=== PATIENT | male | born 1955 | race Two or more races ===

== ENCOUNTER 2020-10-09 13:41 | Inpatient (IN) | payer OTHER ==
[~2020-10-09] VITALS: Ht 172.7 cm; Wt 71.1 kg
[2020-10-09] MEDS ORDERED: ASCORBIC ACID 500 MG TAB PO ONE (14:15)
[2020-10-09] MEDS ORDERED: ZINC SULFATE 220mg CAP or TAB PO ONE (14:15)
[2020-10-09] MEDS ORDERED: AZITHROMYCIN 500MG/ 250ML 250 ML IV ONE (14:15)
[2020-10-09] MEDS ORDERED: DexAMETHasone SOD PHOS 10MG/1ML VIAL INJ IV ONE (14:15)
[2020-10-09 14:34] LABS: Basophils # (auto) 0.1 10 ^3/uL (0-0.2); Basophils % (auto) 0.7 % (0.0-2.0); Eosinophils # (auto) 0.1 10 ^3/uL (0-0.8); Eosinophils % (auto) 1.1 % (0.0-7.0); Hematocrit 45.7 % (41.0-53.0); Hemoglobin 15.7 g/dL (13.5-17.5); Lymphocytes # (auto) 0.8 10 ^3/uL (0.4-5.4); Lymphocytes % (auto) 8.7 % (10.0-50.0); Mean Corpuscular Hemoglobin 31.3 pg (28.0-32.0); Mean Corpuscular Hgb Conc. 34.3 g/dL (32.0-36.0); Mean Corpuscular Volume 91.2 fL (80.0-100.0); Monocytes # (auto) 0.7 10 ^3/uL (0-1.3); Neutrophils # (auto) 7.9 10 ^3/uL (1.6-8.6); Neutrophils % (auto) 82.5 % (37.0-80.0); Nucleated Red Blood Cells % 0.1 %; Platelet Count (auto) 270 10^3/uL (140-450); Red Blood Cells 5.01 10^6/uL (4.5-5.90); Red Cell Distribution Width 13.5 % (11.8-14.3); White Blood Cell 9.6 10^3/uL (4.4-10.8)
[2020-10-09 14:44] LABS: INR 1.14 (0.9-1.15); Partial Thromboplastin Time 24.5 sec (23.0-31.2)
[2020-10-09 14:56] LABS: Albumin 2.2 g/dL (3.4-5.0); Anion Gap 11 (5-15); Blood Urea Nitrogen 17 mg/dL (7-18); Calcium 7.9 mg/dL (8.5-10.1); Carbon Dioxide 25 mmol/L (21-32); Chloride 99 mmol/L (98-107); Glucose 309 mg/dL (74-106); Magnesium 2.4 mg/dL (1.6-2.6); Potassium 3.5 mmol/L (3.5-5.1); Sodium 135 mmol/L (136-145)
[2020-10-09 14:58] LABS: Lactic Acid w/Reflex 5.9 mmol/L (0.4-2.0)
[2020-10-09 15:01] LABS: Alanine Aminotransferase 44 U/L (16-61); Alkaline Phosphatase 93 U/L (45-117); Aspartate Aminotransferase 49 U/L (15-37); BUN/Creatinine Ratio 15.3; Bilirubin, Total 1.3 mg/dL (0.2-1.0); GFR African American 86 mL/min; GFR Non-African American 71 mL/min
[2020-10-09] MEDS ORDERED: NITROGLYCERIN 0.4 MG SL TAB SL PRN (19:00)
[2020-10-09] MEDS ORDERED: MORPHINE SULF INJ 2 MG/ML SYRINGE 1ML IV PRN ×2 (19:00→19:45)
[2020-10-09] MEDS ORDERED: ACETAMINOPHEN 500 MG TAB PO PRN (19:45)
[2020-10-09] MEDS ORDERED: PROMETHAZINE HCL 25 MG/ML 1ML IV PRN (19:45)
[2020-10-09] MEDS ORDERED: DEXTROSE (50%) 50ML SYRG IV PRN (19:45)
[2020-10-09] MEDS ORDERED: TEMAZEPAM 15 MG CAP PO PRN (19:45)
[2020-10-09] MEDS ORDERED: traMADol HCL 50 MG TAB PO PRN (19:45)
[2020-10-09] MEDS ORDERED: LACTULOSE 20Gm/30ML SOLN PO PRN (19:45)
[2020-10-09] MEDS: ACCU-CHEK COMFORT CURVE STRIP VI SCH (20:00)
[2020-10-09] MEDS: InsuLIN REG 1unit/0.01ml Soln (100units/ml) SC SCH (20:00)
[2020-10-09] MEDS: INSULIN LANTUS (GLARGINE) 1 /0.01ml (100units/ml) SC SCH (21:50)
[2020-10-09] MEDS: CLINDAMYCIN 600MG IV 50 ML IV SCH (21:51)
[2020-10-09] MEDS: ENOXAPARIN SOD 40 MG/0.4 ML SYRINGE SC SCH (21:52)
[2020-10-10] MEDS: InsuLIN REG 1unit/0.01ml Soln (100units/ml) SC SCH ×7 (00:05→23:55)
[2020-10-10] MEDS: BUDESONIDE (INHALATION) 180 MCG IH IN SCH ×3 (00:47→20:39)
[2020-10-10] MEDS: ACCU-CHEK COMFORT CURVE STRIP VI SCH ×7 (03:57→23:52)
[2020-10-10] MEDS: CLINDAMYCIN 600MG IV 50 ML IV SCH ×3 (05:52→21:38)
[2020-10-10] MEDS: INSULIN LANTUS (GLARGINE) 1 /0.01ml (100units/ml) SC SCH (06:40)
[2020-10-10 06:47] LABS: Basophils # (auto) 0 10 ^3/uL (0-0.2); Basophils % (auto) 0.2 % (0.0-2.0); Eosinophils # (auto) 0 10 ^3/uL (0-0.8); Eosinophils % (auto) 0.1 % (0.0-7.0); Hematocrit 43.1 % (41.0-53.0); Hemoglobin 15.3 g/dL (13.5-17.5); Lymphocytes # (auto) 1.1 10 ^3/uL (0.4-5.4); Lymphocytes % (auto) 10.3 % (10.0-50.0); Mean Corpuscular Hgb Conc. 35.5 g/dL (32.0-36.0); Mean Corpuscular Volume 90.2 fL (80.0-100.0); Monocytes # (auto) 0.8 10 ^3/uL (0-1.3); Monocytes % (auto) 7.3 % (0.0-12.0); Neutrophils # (auto) 8.5 10 ^3/uL (1.6-8.6); Neutrophils % (auto) 82.1 % (37.0-80.0); Platelet Count (auto) 270 10^3/uL (140-450); Red Blood Cells 4.78 10^6/uL (4.5-5.90); Red Cell Distribution Width 13.6 % (11.8-14.3); White Blood Cell 10.4 10^3/uL (4.4-10.8)
[2020-10-10 07:00] LABS: Potassium 3.7 mmol/L (3.5-5.1)
[2020-10-10 07:08] LABS: Albumin 2.2 g/dL (3.4-5.0); BUN/Creatinine Ratio 29.4; Bilirubin, Total 0.8 mg/dL (0.2-1.0); Calcium 8.2 mg/dL (8.5-10.1); Total Protein 7.7 g/dL (6.4-8.2)
[2020-10-10 10:00] VITALS: BP 109/71
[2020-10-10] MEDS ORDERED: IVERMECTIN 3 MG TAB PO ONE (10:00)
[2020-10-10] MEDS: DexAMETHasone SOD PHOS 10MG/1ML VIAL INJ IV SCH (10:48)
[2020-10-10] MEDS: ENOXAPARIN SOD 40 MG/0.4 ML SYRINGE SC SCH ×2 (10:49→21:39)
[2020-10-10] MEDS: ZINC SULFATE 220mg CAP or TAB PO SCH (10:49)
[2020-10-10] MEDS: CHOLECALCIFEROL (VITD3) 2,000 UNIT CAP/TAB PO SCH (10:49)
[2020-10-10] MEDS: levoFLOXacin 500MG 100 ML IV SCH (10:49)
[2020-10-10] MEDS: ASCORBIC ACID 1,000 MG TAB PO SCH (10:49)
[2020-10-10 16:00] VITALS: BP 113/66
[2020-10-10] MEDS ORDERED: REMDESIVIR PER PHARMACY 0 ML IV SCH (16:45)
[2020-10-10] MEDS ORDERED: REMDESIVIR 200 MG in NS 210ml LOADING DOSE ADULT IV ONE (18:30)
[2020-10-10] MEDS: ALBUTEROL SULF HFA 90MCG INH 200DOSE IN PRN (20:39)
[2020-10-11] VITALS: BP 102/51
[2020-10-11 03:58] VITALS: BP 124/62
[2020-10-11] MEDS: InsuLIN REG 1unit/0.01ml Soln (100units/ml) SC SCH ×5 (04:00→20:05)
[2020-10-11] MEDS: ACCU-CHEK COMFORT CURVE STRIP VI SCH ×5 (04:19→20:04)
[2020-10-11 04:24] VITALS: BP 113/67
[2020-10-11 06:00] VITALS: BP 137/68
[2020-10-11] MEDS: CLINDAMYCIN 600MG IV 50 ML IV SCH ×3 (06:17→21:20)
[2020-10-11 07:21] LABS: Basophils # (auto) 0 10 ^3/uL (0-0.2); Basophils % (auto) 0.1 % (0.0-2.0); Eosinophils # (auto) 0.1 10 ^3/uL (0-0.8); Eosinophils % (auto) 1.3 % (0.0-7.0); Hematocrit 40.3 % (41.0-53.0); Hemoglobin 13.7 g/dL (13.5-17.5); Lymphocytes # (auto) 1.5 10 ^3/uL (0.4-5.4); Lymphocytes % (auto) 15.3 % (10.0-50.0); Mean Corpuscular Volume 91.1 fL (80.0-100.0); Monocytes # (auto) 0.8 10 ^3/uL (0-1.3); Monocytes % (auto) 8.1 % (0.0-12.0); Neutrophils # (auto) 7.1 10 ^3/uL (1.6-8.6); Neutrophils % (auto) 75.2 % (37.0-80.0); Nucleated Red Blood Cells % 0.1 %; Platelet Count (auto) 261 10^3/uL (140-450); Red Blood Cells 4.42 10^6/uL (4.5-5.90); Red Cell Distribution Width 13.5 % (11.8-14.3); White Blood Cell 9.5 10^3/uL (4.4-10.8)
[2020-10-11] MEDS: BUDESONIDE (INHALATION) 180 MCG IH IN SCH ×2 (07:40→19:40)
[2020-10-11 07:45] LABS: Potassium 3.8 mmol/L (3.5-5.1)
[2020-10-11 07:59] LABS: Albumin 2.2 g/dL (3.4-5.0); Bilirubin, Total 0.7 mg/dL (0.2-1.0); Calcium 7.8 mg/dL (8.5-10.1)
[2020-10-11 08:00] VITALS: BP 130/76
[2020-10-11] MEDS: levoFLOXacin 500MG 100 ML IV SCH (10:11)
[2020-10-11] MEDS: DexAMETHasone SOD PHOS 10MG/1ML VIAL INJ IV SCH (10:11)
[2020-10-11] MEDS: ZINC SULFATE 220mg CAP or TAB PO SCH (10:11)
[2020-10-11] MEDS: ASCORBIC ACID 1,000 MG TAB PO SCH (10:12)
[2020-10-11] MEDS: CHOLECALCIFEROL (VITD3) 2,000 UNIT CAP/TAB PO SCH (10:12)
[2020-10-11] MEDS: ENOXAPARIN SOD 40 MG/0.4 ML SYRINGE SC SCH ×2 (10:13→21:20)
[2020-10-11] MEDS: ALBUTEROL SULF HFA 90MCG INH 200DOSE IN PRN ×2 (10:34→19:40)
[2020-10-11] MEDS: INSULIN LANTUS (GLARGINE) 1 /0.01ml (100units/ml) SC SCH (12:10)
[2020-10-11] MEDS: REMDESIVIR 100mg 100 MG in SODIUM CHL 0.9% 230 ML IV SCH (13:49)
[2020-10-11 16:00] VITALS: BP 127/77
[2020-10-12] VITALS: BP 97/53
[2020-10-12] MEDS: ACCU-CHEK COMFORT CURVE STRIP VI SCH ×6 (00:11→20:14)
[2020-10-12] MEDS: InsuLIN REG 1unit/0.01ml Soln (100units/ml) SC SCH ×6 (00:13→20:18)
[2020-10-12] MEDS: CLINDAMYCIN 600MG IV 50 ML IV SCH ×2 (05:50→14:04)
[2020-10-12 06:56] LABS: Basophils # (auto) 0 10 ^3/uL (0-0.2); Basophils % (auto) 0.2 % (0.0-2.0); Eosinophils # (auto) 0.2 10 ^3/uL (0-0.8); Eosinophils % (auto) 1.7 % (0.0-7.0); Hematocrit 38.6 % (41.0-53.0); Hemoglobin 13.6 g/dL (13.5-17.5); Lymphocytes # (auto) 1.4 10 ^3/uL (0.4-5.4); Lymphocytes % (auto) 15.9 % (10.0-50.0); Mean Corpuscular Hemoglobin 31.8 pg (28.0-32.0); Mean Corpuscular Hgb Conc. 35.2 g/dL (32.0-36.0); Mean Corpuscular Volume 90.4 fL (80.0-100.0); Monocytes # (auto) 0.8 10 ^3/uL (0-1.3); Monocytes % (auto) 8.6 % (0.0-12.0); Neutrophils # (auto) 6.4 10 ^3/uL (1.6-8.6); Neutrophils % (auto) 73.6 % (37.0-80.0); Nucleated Red Blood Cells % 0.1 %; Platelet Count (auto) 239 10^3/uL (140-450); Red Blood Cells 4.26 10^6/uL (4.5-5.90); Red Cell Distribution Width 13.7 % (11.8-14.3); White Blood Cell 8.7 10^3/uL (4.4-10.8)
[2020-10-12 07:10] LABS: Potassium 3.8 mmol/L (3.5-5.1)
[2020-10-12 07:16] LABS: Albumin 1.9 g/dL (3.4-5.0); BUN/Creatinine Ratio 30.2; Bilirubin, Total 0.9 mg/dL (0.2-1.0); Calcium 7.4 mg/dL (8.5-10.1); Total Protein 6.2 g/dL (6.4-8.2)
[2020-10-12] MEDS: ALBUTEROL SULF HFA 90MCG INH 200DOSE IN PRN ×2 (07:16→20:52)
[2020-10-12] MEDS: BUDESONIDE (INHALATION) 180 MCG IH IN SCH ×2 (07:16→20:52)
[2020-10-12 08:28] VITALS: BP 96/55
[2020-10-12] MEDS: ENOXAPARIN SOD 40 MG/0.4 ML SYRINGE SC SCH ×2 (10:02→21:32)
[2020-10-12] MEDS: levoFLOXacin 500MG 100 ML IV SCH (10:02)
[2020-10-12] MEDS: ZINC SULFATE 220mg CAP or TAB PO SCH (10:03)
[2020-10-12] MEDS: ASCORBIC ACID 1,000 MG TAB PO SCH (10:03)
[2020-10-12] MEDS: DexAMETHasone SOD PHOS 10MG/1ML VIAL INJ IV SCH (10:03)
[2020-10-12] MEDS: CHOLECALCIFEROL (VITD3) 2,000 UNIT CAP/TAB PO SCH (10:03)
[2020-10-12] MEDS: INSULIN LANTUS (GLARGINE) 1 /0.01ml (100units/ml) SC SCH (10:09)
[2020-10-12] MEDS: REMDESIVIR 100mg 100 MG in SODIUM CHL 0.9% 230 ML IV SCH (15:20)
[2020-10-12 16:00] VITALS: BP 112/64
[2020-10-13] VITALS: BP 105/54
[2020-10-13] MEDS: ACCU-CHEK COMFORT CURVE STRIP VI SCH ×7 (00:13→23:56)
[2020-10-13] MEDS: InsuLIN REG 1unit/0.01ml Soln (100units/ml) SC SCH ×7 (00:14→23:57)
[2020-10-13] MEDS: BUDESONIDE (INHALATION) 180 MCG IH IN SCH ×2 (06:49→21:44)
[2020-10-13] MEDS: ALBUTEROL SULF HFA 90MCG INH 200DOSE IN PRN ×2 (06:49→21:44)
[2020-10-13 06:56] LABS: Basophils # (auto) 0 10 ^3/uL (0-0.2); Basophils % (auto) 0.3 % (0.0-2.0); Eosinophils # (auto) 0.1 10 ^3/uL (0-0.8); Hemoglobin 14.4 g/dL (13.5-17.5)
[2020-10-13 07:03] LABS: Eosinophils % (auto) 1.3 % (0.0-7.0); Lymphocytes # (auto) 1.4 10 ^3/uL (0.4-5.4); Lymphocytes % (auto) 14.4 % (10.0-50.0); Monocytes % (auto) 10.7 % (0.0-12.0); Neutrophils # (auto) 6.9 10 ^3/uL (1.6-8.6); Neutrophils % (auto) 73.3 % (37.0-80.0); Nucleated Red Blood Cells % 0.3 %; Red Blood Cells 4.11 10^6/uL (4.5-5.90); White Blood Cell 9.4 10^3/uL (4.4-10.8)
[2020-10-13 07:04] LABS: Hematocrit 39.3 % (41.0-53.0); Mean Corpuscular Hemoglobin 34.9 pg (28.0-32.0); Mean Corpuscular Volume 95.6 fL (80.0-100.0); Platelet Count (auto) 247 10^3/uL (140-450); Red Cell Distribution Width 13.7 % (11.8-14.3)
[2020-10-13 07:05] LABS: Albumin 2.2 g/dL (3.4-5.0); BUN/Creatinine Ratio 27.7; Calcium 8.1 mg/dL (8.5-10.1)
[2020-10-13 07:09] LABS: Bilirubin, Total 0.7 mg/dL (0.2-1.0); Total Protein 6.5 g/dL (6.4-8.2)
[2020-10-13 08:00] VITALS: BP 110/66
[2020-10-13] MEDS: DexAMETHasone SOD PHOS 10MG/1ML VIAL INJ IV SCH (09:37)
[2020-10-13] MEDS: ENOXAPARIN SOD 40 MG/0.4 ML SYRINGE SC SCH ×2 (09:38→21:13)
[2020-10-13] MEDS: levoFLOXacin 500MG 100 ML IV SCH (09:38)
[2020-10-13] MEDS: CHOLECALCIFEROL (VITD3) 2,000 UNIT CAP/TAB PO SCH (09:38)
[2020-10-13] MEDS: ASCORBIC ACID 1,000 MG TAB PO SCH (09:38)
[2020-10-13] MEDS: ZINC SULFATE 220mg CAP or TAB PO SCH (09:38)
[2020-10-13] MEDS: INSULIN LANTUS (GLARGINE) 1 /0.01ml (100units/ml) SC SCH (09:39)
[2020-10-13] MEDS: REMDESIVIR 100mg 100 MG in SODIUM CHL 0.9% 230 ML IV SCH (15:39)
[2020-10-13 16:00] VITALS: BP 109/70
[2020-10-14] VITALS: BP 102/73
[2020-10-14] MEDS: ACCU-CHEK COMFORT CURVE STRIP VI SCH ×5 (04:47→20:53)
[2020-10-14] MEDS: InsuLIN REG 1unit/0.01ml Soln (100units/ml) SC SCH ×6 (04:49→20:54)
[2020-10-14 06:21] LABS: Basophils # (auto) 0 10 ^3/uL (0-0.2); Basophils % (auto) 0.2 % (0.0-2.0); Eosinophils # (auto) 0.1 10 ^3/uL (0-0.8); Eosinophils % (auto) 1.6 % (0.0-7.0); Hematocrit 42.3 % (41.0-53.0); Hemoglobin 14.8 g/dL (13.5-17.5); Lymphocytes # (auto) 1.3 10 ^3/uL (0.4-5.4); Lymphocytes % (auto) 14.2 % (10.0-50.0); Mean Corpuscular Hemoglobin 32.1 pg (28.0-32.0); Mean Corpuscular Hgb Conc. 35.1 g/dL (32.0-36.0); Mean Corpuscular Volume 91.5 fL (80.0-100.0); Monocytes # (auto) 0.7 10 ^3/uL (0-1.3); Neutrophils # (auto) 6.8 10 ^3/uL (1.6-8.6); Platelet Count (auto) 249 10^3/uL (140-450); Red Blood Cells 4.62 10^6/uL (4.5-5.90); Red Cell Distribution Width 13.7 % (11.8-14.3)
[2020-10-14 06:38] LABS: Potassium 4.2 mmol/L (3.5-5.1)
[2020-10-14 06:45] LABS: Albumin 2.2 g/dL (3.4-5.0); BUN/Creatinine Ratio 20.3; Bilirubin, Total 0.7 mg/dL (0.2-1.0); Calcium 8.2 mg/dL (8.5-10.1); Total Protein 6.6 g/dL (6.4-8.2)
[2020-10-14] MEDS: ALBUTEROL SULF HFA 90MCG INH 200DOSE IN PRN ×2 (07:10→19:54)
[2020-10-14] MEDS: BUDESONIDE (INHALATION) 180 MCG IH IN SCH ×2 (07:10→19:54)
[2020-10-14 08:00] VITALS: BP 115/66
[2020-10-14] MEDS: INSULIN LANTUS (GLARGINE) 1 /0.01ml (100units/ml) SC SCH (10:00)
[2020-10-14] MEDS: DexAMETHasone SOD PHOS 10MG/1ML VIAL INJ IV SCH (10:32)
[2020-10-14] MEDS: ASCORBIC ACID 1,000 MG TAB PO SCH (10:38)
[2020-10-14] MEDS: CHOLECALCIFEROL (VITD3) 2,000 UNIT CAP/TAB PO SCH (10:38)
[2020-10-14] MEDS: ENOXAPARIN SOD 40 MG/0.4 ML SYRINGE SC SCH ×2 (10:38→21:10)
[2020-10-14] MEDS: levoFLOXacin 500MG 100 ML IV SCH (10:39)
[2020-10-14] MEDS: ZINC SULFATE 220mg CAP or TAB PO SCH (10:50)
[2020-10-14 15:57] VITALS: BP 106/72
[2020-10-14] MEDS: REMDESIVIR 100mg 100 MG in SODIUM CHL 0.9% 230 ML IV SCH (16:16)
[2020-10-14] MEDS ORDERED: InsuLIN REG 1unit/0.01ml Soln (100units/ml) ONE (16:41)
[2020-10-15] VITALS: BP 95/61
[2020-10-15] MEDS: ACCU-CHEK COMFORT CURVE STRIP VI SCH ×6 (00:07→22:03)
[2020-10-15] MEDS: InsuLIN REG 1unit/0.01ml Soln (100units/ml) SC SCH ×6 (00:15→22:06)
[2020-10-15 04:06] VITALS: BP 95/61
[2020-10-15 06:37] LABS: Basophils # (auto) 0 10 ^3/uL (0-0.2); Basophils % (auto) 0.3 % (0.0-2.0); Eosinophils # (auto) 0.3 10 ^3/uL (0-0.8); Eosinophils % (auto) 3.1 % (0.0-7.0); Hemoglobin 14.7 g/dL (13.5-17.5); Lymphocytes # (auto) 1.6 10 ^3/uL (0.4-5.4); Lymphocytes % (auto) 14.8 % (10.0-50.0); Mean Corpuscular Hemoglobin 31.6 pg (28.0-32.0); Mean Corpuscular Hgb Conc. 35.1 g/dL (32.0-36.0); Mean Corpuscular Volume 90.1 fL (80.0-100.0); Monocytes # (auto) 1.1 10 ^3/uL (0-1.3); Monocytes % (auto) 9.7 % (0.0-12.0); Neutrophils # (auto) 7.9 10 ^3/uL (1.6-8.6); Neutrophils % (auto) 72.1 % (37.0-80.0); Nucleated Red Blood Cells % 0.1 %; Platelet Count (auto) 265 10^3/uL (140-450); Red Blood Cells 4.66 10^6/uL (4.5-5.90); Red Cell Distribution Width 14.1 % (11.8-14.3)
[2020-10-15 06:58] LABS: BUN/Creatinine Ratio 34.8; Calcium 8.3 mg/dL (8.5-10.1); Potassium 4.1 mmol/L (3.5-5.1)
[2020-10-15] MEDS: BUDESONIDE (INHALATION) 180 MCG IH IN SCH ×2 (07:55→19:33)
[2020-10-15] MEDS: ALBUTEROL SULF HFA 90MCG INH 200DOSE IN PRN ×2 (07:55→19:33)
[2020-10-15 08:00] VITALS: BP 109/71
[2020-10-15] MEDS: INSULIN LANTUS (GLARGINE) 1 /0.01ml (100units/ml) SC SCH (09:51)
[2020-10-15] MEDS: ASCORBIC ACID 1,000 MG TAB PO SCH (09:52)
[2020-10-15] MEDS: CHOLECALCIFEROL (VITD3) 2,000 UNIT CAP/TAB PO SCH (09:53)
[2020-10-15] MEDS: ZINC SULFATE 220mg CAP or TAB PO SCH (09:53)
[2020-10-15] MEDS: ENOXAPARIN SOD 40 MG/0.4 ML SYRINGE SC SCH ×2 (09:53→22:03)
[2020-10-15] MEDS: DexAMETHasone SOD PHOS 10MG/1ML VIAL INJ IV SCH (09:53)
[2020-10-15] MEDS: levoFLOXacin 500MG 100 ML IV SCH (09:54)
[2020-10-15] MEDS ORDERED: DEXTROSE (50%) 50ML SYRG IV PRN (13:45)
[2020-10-15 16:00] VITALS: BP 100/65
[2020-10-16] VITALS: BP 102/66
[2020-10-16] MEDS: ACCU-CHEK COMFORT CURVE STRIP VI SCH ×4 (05:55→22:19)
[2020-10-16] MEDS: InsuLIN REG 1unit/0.01ml Soln (100units/ml) SC SCH ×4 (05:59→22:28)
[2020-10-16 07:33] LABS: Basophils # (auto) 0 10 ^3/uL (0-0.2); Basophils % (auto) 0.1 % (0.0-2.0); Eosinophils # (auto) 0 10 ^3/uL (0-0.8); Eosinophils % (auto) 0.5 % (0.0-7.0); Hematocrit 41.2 % (41.0-53.0); Hemoglobin 14.8 g/dL (13.5-17.5); Lymphocytes # (auto) 1.2 10 ^3/uL (0.4-5.4); Lymphocytes % (auto) 11.4 % (10.0-50.0); Mean Corpuscular Hemoglobin 33.7 pg (28.0-32.0); Mean Corpuscular Hgb Conc. 35.9 g/dL (32.0-36.0); Monocytes # (auto) 0.9 10 ^3/uL (0-1.3); Monocytes % (auto) 8.2 % (0.0-12.0); Neutrophils # (auto) 8.5 10 ^3/uL (1.6-8.6); Neutrophils % (auto) 79.8 % (37.0-80.0); Nucleated Red Blood Cells % 0.1 %; Platelet Count (auto) 261 10^3/uL (140-450); Red Blood Cells 4.38 10^6/uL (4.5-5.90); Red Cell Distribution Width 13.6 % (11.8-14.3); White Blood Cell 10.7 10^3/uL (4.4-10.8)
[2020-10-16 07:40] LABS: Potassium 4.1 mmol/L (3.5-5.1)
[2020-10-16] MEDS: BUDESONIDE (INHALATION) 180 MCG IH IN SCH ×2 (07:40→18:50)
[2020-10-16] MEDS: ALBUTEROL SULF HFA 90MCG INH 200DOSE IN PRN ×2 (07:40→19:37)
[2020-10-16 07:45] LABS: BUN/Creatinine Ratio 30.9; Calcium 8.7 mg/dL (8.5-10.1)
[2020-10-16 08:00] VITALS: BP 101/60
[2020-10-16] MEDS: levoFLOXacin 500MG 100 ML IV SCH (10:11)
[2020-10-16] MEDS: ZINC SULFATE 220mg CAP or TAB PO SCH (10:11)
[2020-10-16] MEDS: DexAMETHasone SOD PHOS 10MG/1ML VIAL INJ IV SCH (10:11)
[2020-10-16] MEDS: ASCORBIC ACID 1,000 MG TAB PO SCH (10:12)
[2020-10-16] MEDS: CHOLECALCIFEROL (VITD3) 2,000 UNIT CAP/TAB PO SCH (10:12)
[2020-10-16] MEDS: INSULIN LANTUS (GLARGINE) 1 /0.01ml (100units/ml) SC SCH (10:13)
[2020-10-16] MEDS ORDERED: LEVO750T64 PO (11:43)
[2020-10-16] MEDS ORDERED: ASCO10003 PO (11:43)
[2020-10-16] MEDS ORDERED: DEX4T PO (11:43)
[2020-10-16] MEDS ORDERED: CHOL1CAP47 PO (11:43)
[2020-10-16] MEDS: ENOXAPARIN SOD 40 MG/0.4 ML SYRINGE SC SCH ×2 (15:13→22:19)
[2020-10-16 16:00] VITALS: BP 116/67
[2020-10-17] VITALS: BP 125/66
[2020-10-17] MEDS: ACCU-CHEK COMFORT CURVE STRIP VI SCH ×4 (06:36→21:42)
[2020-10-17] MEDS: InsuLIN REG 1unit/0.01ml Soln (100units/ml) SC SCH ×4 (06:37→21:38)
[2020-10-17 08:00] VITALS: BP 105/61
[2020-10-17] MEDS: ALBUTEROL SULF HFA 90MCG INH 200DOSE IN PRN (09:42)
[2020-10-17] MEDS: BUDESONIDE (INHALATION) 180 MCG IH IN SCH ×2 (09:42→22:03)
[2020-10-17] MEDS: DexAMETHasone SOD PHOS 10MG/1ML VIAL INJ IV SCH (10:05)
[2020-10-17] MEDS: levoFLOXacin 500MG 100 ML IV SCH (10:06)
[2020-10-17] MEDS: ZINC SULFATE 220mg CAP or TAB PO SCH (10:06)
[2020-10-17] MEDS: ASCORBIC ACID 1,000 MG TAB PO SCH (10:06)
[2020-10-17] MEDS: CHOLECALCIFEROL (VITD3) 2,000 UNIT CAP/TAB PO SCH (10:06)
[2020-10-17] MEDS: ENOXAPARIN SOD 40 MG/0.4 ML SYRINGE SC SCH ×2 (10:07→21:42)
[2020-10-17] MEDS: INSULIN LANTUS (GLARGINE) 1 /0.01ml (100units/ml) SC SCH (10:08)
[2020-10-17 12:03] LABS: Basophils # (auto) 0 10 ^3/uL (0-0.2); Basophils % (auto) 0.1 % (0.0-2.0); Eosinophils # (auto) 0.1 10 ^3/uL (0-0.8); Eosinophils % (auto) 0.5 % (0.0-7.0); Hematocrit 40.2 % (41.0-53.0); Hemoglobin 13.7 g/dL (13.5-17.5); Lymphocytes # (auto) 0.8 10 ^3/uL (0.4-5.4); Lymphocytes % (auto) 6.2 % (10.0-50.0); Mean Corpuscular Hemoglobin 30.8 pg (28.0-32.0); Mean Corpuscular Hgb Conc. 34.1 g/dL (32.0-36.0); Mean Corpuscular Volume 90.1 fL (80.0-100.0); Monocytes % (auto) 7.3 % (0.0-12.0); Neutrophils # (auto) 11.3 10 ^3/uL (1.6-8.6); Neutrophils % (auto) 85.9 % (37.0-80.0); Platelet Count (auto) 257 10^3/uL (140-450); Red Blood Cells 4.46 10^6/uL (4.5-5.90); Red Cell Distribution Width 14.1 % (11.8-14.3); White Blood Cell 13.2 10^3/uL (4.4-10.8)
[2020-10-17 12:14] LABS: BUN/Creatinine Ratio 27.3; Calcium 8.2 mg/dL (8.5-10.1); Potassium 4.6 mmol/L (3.5-5.1)
[2020-10-17 12:23] LABS: CRP High Sensitivity 5.07 mg/dL (< 0.3)
[2020-10-17] MEDS ORDERED: IOHEXOL 350 MG/ML 100ML IJ ONE (13:07)
[2020-10-17] MEDS ORDERED: methylPREDNISolone SOD SUCC 40 MG/ML VL IV ONE (14:00)
[2020-10-17] MEDS ORDERED: TOCILIZUMAB 400 MG in SODIUM CHL 0.9% 80 ML IV SCH (14:30)
[2020-10-17] MEDS: diphenhdrAMINE HCL 50 MG/1 ML VL IV SCH (14:35)
[2020-10-17] MEDS: ACETAMINOPHEN 650 mg PER 20.3 mL UD PO SCH (14:36)
[2020-10-17 16:00] VITALS: BP 103/60
[2020-10-18] VITALS: BP 94/56
[2020-10-18 06:20] LABS: Basophils # (auto) 0 10 ^3/uL (0-0.2); Eosinophils # (auto) 0 10 ^3/uL (0-0.8); Hematocrit 39.1 % (41.0-53.0); Hemoglobin 13.5 g/dL (13.5-17.5); Lymphocytes # (auto) 1.4 10 ^3/uL (0.4-5.4); Mean Corpuscular Hemoglobin 31.4 pg (28.0-32.0); Mean Corpuscular Hgb Conc. 34.6 g/dL (32.0-36.0); Mean Corpuscular Volume 90.8 fL (80.0-100.0); Monocytes # (auto) 0.8 10 ^3/uL (0-1.3); Monocytes % (auto) 6.2 % (0.0-12.0); Neutrophils # (auto) 10.5 10 ^3/uL (1.6-8.6); Neutrophils % (auto) 82.8 % (37.0-80.0); Platelet Count (auto) 284 10^3/uL (140-450); Red Cell Distribution Width 14.2 % (11.8-14.3); White Blood Cell 12.6 10^3/uL (4.4-10.8)
[2020-10-18] MEDS: InsuLIN REG 1unit/0.01ml Soln (100units/ml) SC SCH ×4 (06:28→22:58)
[2020-10-18 06:37] LABS: Potassium 4.4 mmol/L (3.5-5.1)
[2020-10-18 06:50] LABS: BUN/Creatinine Ratio 39.3; CRP High Sensitivity 3.61 mg/dL (< 0.3); Calcium 8.2 mg/dL (8.5-10.1)
[2020-10-18] MEDS: ACCU-CHEK COMFORT CURVE STRIP VI SCH ×4 (07:00→22:54)
[2020-10-18 08:00] VITALS: BP 120/71
[2020-10-18] MEDS: INSULIN LANTUS (GLARGINE) 1 /0.01ml (100units/ml) SC SCH (10:00)
[2020-10-18] MEDS: ENOXAPARIN SOD 40 MG/0.4 ML SYRINGE SC SCH ×2 (10:00→22:30)
[2020-10-18] MEDS: ALBUTEROL SULF HFA 90MCG INH 200DOSE IN PRN ×2 (10:13→19:29)
[2020-10-18] MEDS: BUDESONIDE (INHALATION) 180 MCG IH IN SCH ×2 (10:13→19:29)
[2020-10-18] MEDS: levoFLOXacin 500MG 100 ML IV SCH (11:03)
[2020-10-18] MEDS: DexAMETHasone SOD PHOS 10MG/1ML VIAL INJ IV SCH (11:04)
[2020-10-18] MEDS: ACETAMINOPHEN 650 mg PER 20.3 mL UD PO SCH (11:04)
[2020-10-18] MEDS: diphenhdrAMINE HCL 50 MG/1 ML VL IV SCH (11:05)
[2020-10-18] MEDS: CHOLECALCIFEROL (VITD3) 2,000 UNIT CAP/TAB PO SCH (11:06)
[2020-10-18] MEDS: ZINC SULFATE 220mg CAP or TAB PO SCH (11:06)
[2020-10-18] MEDS: ASCORBIC ACID 1,000 MG TAB PO SCH (11:06)
[2020-10-18] MEDS ORDERED: TOCILIZUMAB 400 MG in SODIUM CHL 0.9% 80 ML IV ONE (12:00)
[2020-10-18] MEDS ORDERED: ROCURONIUM 10MG/ML 10ML VIAL IV ONE (12:30)
[2020-10-18] MEDS ORDERED: ETOMIDATE (2MG/ML) 20ML VIAL IV ONE (12:30)
[2020-10-18 15:54] VITALS: BP 109/60
[2020-10-19] VITALS: BP 106/63
[2020-10-19] MEDS: ACCU-CHEK COMFORT CURVE STRIP VI SCH ×4 (06:51→22:28)
[2020-10-19] MEDS: InsuLIN REG 1unit/0.01ml Soln (100units/ml) SC SCH ×4 (06:52→22:30)
[2020-10-19 07:31] LABS: Basophils # (auto) 0.1 10 ^3/uL (0-0.2); Basophils % (auto) 0.4 % (0.0-2.0); Eosinophils # (auto) 0.1 10 ^3/uL (0-0.8); Eosinophils % (auto) 0.7 % (0.0-7.0); Hematocrit 43.1 % (41.0-53.0); Hemoglobin 14.6 g/dL (13.5-17.5); Lymphocytes % (auto) 15.1 % (10.0-50.0); Mean Corpuscular Hemoglobin 30.4 pg (28.0-32.0); Mean Corpuscular Volume 89.4 fL (80.0-100.0); Monocytes # (auto) 0.8 10 ^3/uL (0-1.3); Neutrophils # (auto) 10.3 10 ^3/uL (1.6-8.6); Neutrophils % (auto) 77.8 % (37.0-80.0); Nucleated Red Blood Cells % 0.1 %; Platelet Count (auto) 294 10^3/uL (140-450); Red Blood Cells 4.82 10^6/uL (4.5-5.90); Red Cell Distribution Width 13.8 % (11.8-14.3); White Blood Cell 13.2 10^3/uL (4.4-10.8)
[2020-10-19 07:53] LABS: BUN/Creatinine Ratio 29.7; Calcium 8.1 mg/dL (8.5-10.1); Potassium 4.4 mmol/L (3.5-5.1)
[2020-10-19 08:00] VITALS: BP 110/59
[2020-10-19] MEDS: DexAMETHasone SOD PHOS 10MG/1ML VIAL INJ IV SCH (09:30)
[2020-10-19] MEDS: ZINC SULFATE 220mg CAP or TAB PO SCH (09:31)
[2020-10-19] MEDS: CHOLECALCIFEROL (VITD3) 2,000 UNIT CAP/TAB PO SCH (09:31)
[2020-10-19] MEDS: ASCORBIC ACID 1,000 MG TAB PO SCH (09:31)
[2020-10-19] MEDS: levoFLOXacin 500MG 100 ML IV SCH (09:31)
[2020-10-19] MEDS: BUDESONIDE (INHALATION) 180 MCG IH IN SCH ×2 (09:40→19:18)
[2020-10-19] MEDS: ALBUTEROL SULF HFA 90MCG INH 200DOSE IN PRN ×2 (09:40→19:18)
[2020-10-19] MEDS: INSULIN LANTUS (GLARGINE) 1 /0.01ml (100units/ml) SC SCH (09:56)
[2020-10-19] MEDS: ENOXAPARIN SOD 40 MG/0.4 ML SYRINGE SC SCH ×2 (11:38→22:27)
[2020-10-19 16:00] VITALS: BP 118/74
[2020-10-20] VITALS: BP 111/75
[2020-10-20] MEDS: ACCU-CHEK COMFORT CURVE STRIP VI SCH ×4 (06:17→21:18)
[2020-10-20 06:32] LABS: Basophils # (auto) 0 10 ^3/uL (0-0.2); Basophils % (auto) 0.2 % (0.0-2.0); Eosinophils # (auto) 0.2 10 ^3/uL (0-0.8); Eosinophils % (auto) 1.4 % (0.0-7.0); Hematocrit 42.6 % (41.0-53.0); Hemoglobin 15.1 g/dL (13.5-17.5); Lymphocytes # (auto) 2.3 10 ^3/uL (0.4-5.4); Mean Corpuscular Hemoglobin 32.9 pg (28.0-32.0); Mean Corpuscular Hgb Conc. 35.4 g/dL (32.0-36.0); Mean Corpuscular Volume 92.8 fL (80.0-100.0); Monocytes # (auto) 0.6 10 ^3/uL (0-1.3); Monocytes % (auto) 5.6 % (0.0-12.0); Neutrophils # (auto) 8.3 10 ^3/uL (1.6-8.6); Neutrophils % (auto) 72.8 % (37.0-80.0); Nucleated Red Blood Cells % 0.2 %; Platelet Count (auto) 279 10^3/uL (140-450); Red Blood Cells 4.59 10^6/uL (4.5-5.90); Red Cell Distribution Width 14.2 % (11.8-14.3); White Blood Cell 11.3 10^3/uL (4.4-10.8)
[2020-10-20] MEDS: InsuLIN REG 1unit/0.01ml Soln (100units/ml) SC SCH ×4 (06:33→22:06)
[2020-10-20 06:39] LABS: BUN/Creatinine Ratio 34.9; Calcium 8.5 mg/dL (8.5-10.1); Potassium 4.5 mmol/L (3.5-5.1)
[2020-10-20] MEDS: BUDESONIDE (INHALATION) 180 MCG IH IN SCH ×2 (07:12→19:23)
[2020-10-20] MEDS: ALBUTEROL SULF HFA 90MCG INH 200DOSE IN PRN ×2 (07:12→19:23)
[2020-10-20 08:00] VITALS: BP 99/49
[2020-10-20] MEDS: levoFLOXacin 500MG 100 ML IV SCH (10:48)
[2020-10-20] MEDS: DexAMETHasone SOD PHOS 10MG/1ML VIAL INJ IV SCH (10:48)
[2020-10-20] MEDS: ZINC SULFATE 220mg CAP or TAB PO SCH (10:48)
[2020-10-20] MEDS: CHOLECALCIFEROL (VITD3) 2,000 UNIT CAP/TAB PO SCH (10:49)
[2020-10-20] MEDS: ASCORBIC ACID 1,000 MG TAB PO SCH (10:49)
[2020-10-20] MEDS: ENOXAPARIN SOD 40 MG/0.4 ML SYRINGE SC SCH ×2 (10:49→22:04)
[2020-10-20] MEDS: INSULIN LANTUS (GLARGINE) 1 /0.01ml (100units/ml) SC SCH (11:32)
[2020-10-20] MEDS ORDERED: IVERMECTIN 3 MG TAB PO ONE (13:45)
[2020-10-20 16:00] VITALS: BP 110/72
[2020-10-21] VITALS: BP 98/62
[2020-10-21] MEDS: InsuLIN REG 1unit/0.01ml Soln (100units/ml) SC SCH ×4 (06:07→21:59)
[2020-10-21] MEDS: ACCU-CHEK COMFORT CURVE STRIP VI SCH ×4 (06:08→21:50)
[2020-10-21] MEDS: BUDESONIDE (INHALATION) 180 MCG IH IN SCH ×2 (07:05→20:19)
[2020-10-21 08:00] VITALS: BP 104/64
[2020-10-21 08:04] LABS: Basophils # (auto) 0.1 10 ^3/uL (0-0.2); Basophils % (auto) 0.6 % (0.0-2.0); Eosinophils # (auto) 0.1 10 ^3/uL (0-0.8); Eosinophils % (auto) 1.1 % (0.0-7.0); Hemoglobin 15.1 g/dL (13.5-17.5); Lymphocytes # (auto) 2.2 10 ^3/uL (0.4-5.4); Lymphocytes % (auto) 18.2 % (10.0-50.0); Mean Corpuscular Hemoglobin 32.1 pg (28.0-32.0); Mean Corpuscular Hgb Conc. 35.2 g/dL (32.0-36.0); Mean Corpuscular Volume 91.1 fL (80.0-100.0); Monocytes # (auto) 0.6 10 ^3/uL (0-1.3); Neutrophils % (auto) 75.1 % (37.0-80.0); Nucleated Red Blood Cells % 0.2 %; Platelet Count (auto) 261 10^3/uL (140-450); Red Blood Cells 4.72 10^6/uL (4.5-5.90); Red Cell Distribution Width 13.8 % (11.8-14.3)
[2020-10-21 08:34] LABS: Potassium 4.2 mmol/L (3.5-5.1)
[2020-10-21 08:51] LABS: BUN/Creatinine Ratio 29.5; CRP High Sensitivity 0.44 mg/dL (< 0.3); Calcium 8.2 mg/dL (8.5-10.1)
[2020-10-21] MEDS: levoFLOXacin 500MG 100 ML IV SCH (10:00)
[2020-10-21] MEDS: DexAMETHasone SOD PHOS 10MG/1ML VIAL INJ IV SCH (10:56)
[2020-10-21] MEDS: CHOLECALCIFEROL (VITD3) 2,000 UNIT CAP/TAB PO SCH (10:57)
[2020-10-21] MEDS: ASCORBIC ACID 1,000 MG TAB PO SCH (10:57)
[2020-10-21] MEDS: ZINC SULFATE 220mg CAP or TAB PO SCH (10:57)
[2020-10-21] MEDS: INSULIN LANTUS (GLARGINE) 1 /0.01ml (100units/ml) SC SCH (12:17)
[2020-10-21 16:00] VITALS: BP 113/68
[2020-10-21] MEDS: ALBUTEROL SULF HFA 90MCG INH 200DOSE IN PRN (21:06)
[2020-10-22] VITALS: BP 110/70
[2020-10-22] MEDS: ACCU-CHEK COMFORT CURVE STRIP VI SCH ×2 (06:29→11:30)
[2020-10-22] MEDS: InsuLIN REG 1unit/0.01ml Soln (100units/ml) SC SCH ×2 (06:37→12:25)
[2020-10-22] MEDS: BUDESONIDE (INHALATION) 180 MCG IH IN SCH (07:05)
[2020-10-22] MEDS: ALBUTEROL SULF HFA 90MCG INH 200DOSE IN PRN (07:05)
[2020-10-22 08:14] VITALS: BP 98/62
[2020-10-22] MEDS: DexAMETHasone SOD PHOS 10MG/1ML VIAL INJ IV SCH (08:53)
[2020-10-22] MEDS: ASCORBIC ACID 1,000 MG TAB PO SCH (08:54)
[2020-10-22] MEDS: ZINC SULFATE 220mg CAP or TAB PO SCH (08:54)
[2020-10-22] MEDS: CHOLECALCIFEROL (VITD3) 2,000 UNIT CAP/TAB PO SCH (08:57)
[2020-10-22] MEDS: INSULIN LANTUS (GLARGINE) 1 /0.01ml (100units/ml) SC SCH (10:00)
[2020-10-22] MEDS: levoFLOXacin 500MG 100 ML IV SCH (12:23)
[2020-10-22 16:02] VITALS: BP 111/73
== END 2020-10-22 16:50 | disposition home or self-care (01) | DRG 137 ==
LOC: ER 13:41 → TELE 18:56 → TELE-EAST 10-10 08:50 → TELE-WESTW 10-19 10:52
PROVIDERS: ADMIT Internal Medicine; ATTEND Internal Medicine Pulmonary Disease
PROC: XW033E5 Introduction of Remdesivir Anti-infective into Peripheral Vein, Percutaneous Approach, New Technology Group 5 (ICD-10-PCS; 2020-10-10)
PROC: XW13325 Transfusion of Convalescent Plasma (Nonautologous) into Peripheral Vein, Percutaneous Approach, New Technology Group 5 (ICD-10-PCS; principal; 2020-10-11)
PROC: XW033H5 Introduction of Tocilizumab into Peripheral Vein, Percutaneous Approach, New Technology Group 5 (ICD-10-PCS; 2020-10-17)
DX: U07.1 COVID-19 (principal); J12.82 Pneumonia due to coronavirus disease 2019; J96.01 Acute respiratory failure with hypoxia; E11.65 Type 2 diabetes mellitus with hyperglycemia; I10 Essential (primary) hypertension; D68.59 Other primary thrombophilia; D89.839 Cytokine release syndrome, grade unspecified; E78.5 Hyperlipidemia, unspecified; Z79.4 Long term (current) use of insulin
CPT/HCPCS: 36415; 71045; 71275; 80048; 80053; 82728; 82962; 83036; 83605; 83615; 83735; 84484; 85025; 85379; 85610; 85730; 86141; 86850; 86900; 86901; 87040; 87426; 93005; 93970; 94640; 96365; 96372; 96375; G0378; J1100; J1815; J1956; J3490

== ENCOUNTER 2024-09-08 08:26 | Inpatient (IN) | payer OTHER, MEDICARE ==
[~2024-09-08] VITALS: Ht 172.7 cm; Wt 78.5 kg
[~2024-09-08 08:26] MED LIST: ASCO10003 PO; CHOL1CAP47 PO; DEX4T PO
[2024-09-08] MEDS ORDERED: VANCOMYCIN PER PHARMACY 0 MG IV SCH (09:00)
[2024-09-08] MEDS: PIPERACILLIN-TAZO 4.5GM 100 ML IV ONE (09:09)
[2024-09-08] MEDS: SODIUM CHLORIDE 0.9% 1,000 ML IVB ONE (09:10)
[2024-09-08 09:13] VITALS: PULSE 94; RESP 16; O2SAT 97
[2024-09-08 09:28] LABS: Basophils # (auto) 0.1 10 ^3/uL (0-0.2); Basophils % (auto) 0.5 % (0.0-2.0); Eosinophils # (auto) 0.2 10 ^3/uL (0-0.8); Eosinophils % (auto) 1.4 % (0.0-7.0); Hematocrit 41.9 % (41.0-53.0); Hemoglobin 14.1 g/dL (13.5-17.5); Lymphocytes # (auto) 1.9 10 ^3/uL (0.4-5.4); Lymphocytes % (auto) 10.7 % (10.0-50.0); Mean Corpuscular Hemoglobin 29.9 pg (28.0-32.0); Mean Corpuscular Hgb Conc. 33.7 g/dL (32.0-36.0); Mean Corpuscular Volume 88.8 fL (80.0-100.0); Monocytes # (auto) 0.9 10 ^3/uL (0-1.3); Monocytes % (auto) 5.2 % (0.0-12.0); Neutrophils # (auto) 14.2 10 ^3/uL (1.6-8.6); Neutrophils % (auto) 82.2 % (37.0-80.0); Nucleated Red Blood Cells % 0.1 %; Platelet Count (auto) 401 10^3/uL (140-450); Red Blood Cells 4.71 10^6/uL (4.5-5.90); Red Cell Distribution Width 13.4 % (11.8-14.3); White Blood Cell 17.3 10^3/uL (4.4-10.8)
[2024-09-08 09:47] LABS: Alanine Aminotransferase 22 U/L (7-40); Albumin 3.9 g/dL (3.2-4.8); Alkaline Phosphatase 114 U/L (46-116); Anion Gap 7 (5-15); Aspartate Aminotransferase 22 U/L (13-40); BUN/Creatinine Ratio 14.4 (10.0-20.0); Bilirubin, Total 0.6 mg/dL (0.2-1.0); Blood Urea Nitrogen 16 mg/dL (9-23); Calcium 9.6 mg/dL (8.7-10.4); Carbon Dioxide 29 mmol/L (20-31); Potassium 3.8 mmol/L (3.5-5.1)
[2024-09-08 09:56] LABS: Chloride 96 mmol/L (98-107); Glucose 360 mg/dL (74-106); Sodium 132 mmol/L (136-145); Total Protein 8.4 g/dL (5.7-8.2)
[2024-09-08 10:11] LABS: Erythrocyte Sedimentation Rate 75 mm/hr (0-20)
--- NOTE | 2024-09-08 10:22 | ED.PDOC ---
History of Present Illness HPI Comments 69-year-old male, with a history of diabetes, presents with granddaughter with complaint of diabetic ulcer wound to bottom have of left foot, with associated odor and discharge, and poor appetite, today. Per granddaughter, patient's spouse reports noticing the patient's wound, that he has had for several months, worsening, onset of remaining other symptoms, for the past 3x days. Patient endorses no additional relevant permanent history, such as recent injuries. He denies having any pain, numbness, tingling, fever, chills, or other associated symptoms or modifying us at this time. Chief Complaint: Wound Check Time Seen by MD: 09:00 Reviewed Notes: Nurses Notes, Medications, Allergies Allergies: Coded Allergies: NO KNOWN ALLERGIES (Unverified , 10/09/20) Information Source: Patient Mode of Arrival: Ambulatory Severity: Moderate Timing: Days Duration: Since onset Prehospital treatment: None Past Medical History PAST MEDICAL HISTORY: DM Surgical History: Denies all surgeries Family History Family History: Unknown Social History Smoker: Non-Smoker Alcohol: Occasionally Drugs: Denies Drug Use Lives In: Home Gastrointestinal: reports: poor appetite Integumetry: reports: wounds (Diabetic ulcer wound the bottom of feet with associated odor and discharge) Physical Exam General Appearance: No Apparent Distress, Normal HEENT: Normal ENT Inspection, Pharynx Normal, TMs Normal Neck: Full Range of Motion, Non-Tender, Normal, Normal Inspection Respiratory: Chest Non-Tender, Lungs Clear, No Accessory Muscle Use, No Respiratory Distress, Normal Breath Sounds Cardiovascular: No Edema, No JVD, No Murmur, No Gallop, Normal Peripheral Pulses, Regular Rate/Rhythm Breast Exam: Deferred Gastrointestinal: No Organomegaly, Non Tender, No Pulsatile Mass, Normal Bowel Sounds, Soft Genitalia: Deferred Pelvic: Deferred Rectal: Deferred Extremities: No calf tenderness, Normal capillary refill, Normal inspection, Normal range of motion, Non-tender, No pedal edema Musculoskeletal : Apperance: Normal Neurologic: Alert, food service technician II-XII nml as Tested, No Motor Deficits, Normal Affect, Normal Mood, No Sensory Deficits Cerebellar Function: Normal Reflexes: Normal Skin: Dry, Normal Color, Warm, Wounds (Necrotic ulcer to 1st PIP joint of left foot, venous stasis changes; erythemaof the left foot with warmth and foul- smelling) Lymphatic: No Adenopathy Was a procedure done? Was a procedure done?: No Differential Dx Considerations may include: Osteomyelitis, nonhealing foot wound, cellulitis, dermatitis, sepsis X-Ray, Labs, Meds, VS Vital Signs Date Time Temp Pulse Resp B/P (MAP) Pulse Ox O2 Delivery O2 Flow Rate FiO2 09/08/24 10:14 Room Air* 0 21 09/08/24 09:13 94 16 97 Room Air* 0 09/08/24 09:12 97.4 94 16 109/68 (82) 97 97.4 09/08/24 08:38 98.2 106 16 99/66 (77) 96 Lab Test 09/08/24 10:50 09/08/24 09:21 09/08/24 09:14 Range/Units Troponin I High Sensitivity < 3 L < 3 L </=54 ng/L Urine Color Light-yellow Yellow Urine Clarity Clear Clear Urine pH 6.5 5.0-9.0 Urine Specific [place] 1.050 H 1.001-1.035 Urine Protein Negative Negative Urine Ketones Trace Negative Urine Blood Negative Negative /uL Urine Nitrite Negative Negative Urine Bilirubin Negative Negative Urine Urobilinogen Normal Negative mg/dL Urine Leukocyte Esterase Negative Negative /uL Urine RBC 1 0 - 3 /hpf Urine WBC <1 0 - 3 /hpf Urine Squamous Epithelial Cells Few <5 /hpf Urine Bacteria None seen None Seen /hpf Urine Mucus Few None Seen Urine Glucose 4+ H Normal mg/dL White Blood Count 17.3 H 4.4-10.8 10^3/uL Red Blood Count 4.71 4.5-5.90 10^6/uL Hemoglobin 14.1 13.5-17.5 g/dL Hematocrit 41.9 41.0-53.0 % Mean Corpuscular Volume 88.8 80.0-100.0 fL Mean Corpuscular Hemoglobin 29.9 28.0-32.0 pg Mean Corpuscular Hemoglobin Concent 33.7 32.0-36.0 g/dL Red Cell Distribution Width 13.4 11.8-14.3 % Platelet Count 401 140-450 10^3/uL Mean Platelet Volume 8.6 6.9-10.8 fL Neutrophils (%) (Auto) 82.2 H 37.0-80.0 % Lymphocytes (%) (Auto) 10.7 10.0-50.0 % Monocytes (%) (Auto) 5.2 0.0-12.0 % Eosinophils (%) (Auto) 1.4 0.0-7.0 % Basophils (%) (Auto) 0.5 0.0-2.0 % Neutrophils # (Auto) 14.2 H 1.6-8.6 10 ^3/uL Lymphocytes # (Auto) 1.9 0.4-5.4 10 ^3/uL Monocytes # (Auto) 0.9 0-1.3 10 ^3/uL Eosinophils # (Auto) 0.2 0-0.8 10 ^3/uL Basophils # (Auto) 0.1 0-0.2 10 ^3/uL Nucleated Red Blood Cells 0.1 % Erythrocyte Sedimentation Rate 75 H 0-20 mm/hr Prothrombin Time 11.1 9.3-11.8 sec Prothrombin Time INR 1.05 0.9-1.15 Activated Partial Thromboplast Time 25.9 24.5-34.5 SEC Sodium Level 132 L 136-145 mmol/L Potassium Level 3.8 3.5-5.1 mmol/L Chloride Level 96 L 98-107 mmol/L Carbon Dioxide Level 29 20-31 mmol/L Anion Gap 7 5-15 Blood Urea Nitrogen 16 9-23 mg/dL Creatinine 1.11 0.700-1.30 mg/dL Glomerular Filtration Rate Calc 72 >90 mL/min BUN/Creatinine Ratio 14.4 10.0-20.0 Serum Glucose 360 H 74-106 mg/dL Hemoglobin A1c 11.8 H <5.7 % A1C Lactic Acid Level 1.8 0.4-2.0 mmol/L Calcium Level 9.6 8.7-10.4 mg/dL Total Bilirubin 0.6 0.2-1.0 mg/dL Aspartate Amino Transferase (AST) 22 13-40 U/L Alanine Aminotransferase (ALT) 22 7-40 U/L Alkaline Phosphatase 114 46-116 U/L C-Reactive Protein High Sensitivity 14.15 H <1.0 mg/dL Total Protein 8.4 H 5.7-8.2 g/dL Albumin 3.9 3.2-4.8 g/dL Current Medications Medications (Trade) Dose Ordered Sig/Ruby Route Start Time Stop Time Status Last Admin Sodium Chloride 1,000 ml @ 1,000 mls/hr Q1H ONCE IVB 09/08/24 09:00 09/08/24 09:59 DC 09/08/24 09:10 Piperacillin Sod/ Tazobactam Sod 100 ml @ 100 mls/hr ONCE ONCE IV 09/08/24 09:00 09/08/24 09:59 DC 09/08/24 09:09 Vancomycin HCl 250 ml @ 250 mls/hr ONCE ONCE IV 09/08/24 10:30 09/08/24 11:29 DC 09/08/24 11:12 Sodium Chloride 2,050 ml @ 2,050 mls/hr ONCE ONCE IV 09/08/24 10:30 09/08/24 11:29 DC 09/08/24 11:12 Time of 1ST Reevaluation: 09:30 Reevaluation 1ST: Unchanged Patient Education/Counseling: Diagnosis, Treatment Family Education/Counseling: Diagnosis, Treatment Additional Information The following tests were ordered, and results were reviewed by me: Labs, CT Additional Information was gathered from interviewing the following independent historians: Family I reviewed and agreed with the following test results read by other providers: CT I discussed treatment and results with medical personnel and: (Consultants, Family) Departure 1 Departure Time of Disposition: 16:40 Impression: Primary Impression: Sepsis Additional Impressions: Diabetes type 2 Peripheral arterial disease Disposition: ADMITTED INPATIENT Admit to: Tele Condition: Guarded Critical Care Note Critical Care Time?: Yes (45 min-critical care time only) Stability Stability form required: No Heart Score Heart Score: Heart Score Response (Comments) Value History N/A 0 EKG N/A 0 Age N/A 0 Risk Factors N/A 0 Troponin N/A 0 Total 0 I personally scribed for NATALIE HERZOG MD ([email or web address]) on 09/08/24 at 10:22. Electronically submitted by Jude Morrell ([email or web address]). I personally scribed for NATALIE HERZOG MD ([email or web address]) on 09/08/24 at 10:34. Electronically submitted by Jude Morrell ([email or web address]). NATALIE HERZOG MD Sep 08, 2024 10:22
[2024-09-08 10:24] LABS: INR 1.05 (0.9-1.15); Partial Thromboplastin Time 25.9 SEC (24.5-34.5); Prothrombin Time 11.1 sec (9.3-11.8)
[2024-09-08] MEDS: VANCOMYCIN 1GM/250ML KIT 250 ML IV ONE (11:12)
[2024-09-08] MEDS: SODIUM CHLORIDE 0.9% 2,050 ML IV ONE (11:12)
--- NOTE | 2024-09-08 11:50 | DVH ---
Procedure: CT RT LOWER EXTREMITY W CON Reason for study/Clinical History: diabetic foot. With contrast pls if renal function allows Comparison Study: None available at time of dictation. Radiation Dose Information: CT Dose: CTDI volume is 7.75 mGy. Dose-length product is 273.31 mGy*cm TECHNIQUE: CT scan of the right leg was performed with intravenous contrast using axial images. Coron al and sagittal reformatted images are submitted. 3D postprocessing images were performed on a dedicated workstation and images were reviewed and inter preted for reporting. FINDINGS: Bones: There is cortical erosion along the plantar aspect of the proximal phalanx of the great toe an d another erosion along the dorsal surface of the proximal phalanx at the level of the metatarsophala ngeal joint. Cortical irregularity is noted along the plantar surface of the great toe distal phalanx . These findings are concerning for osteomyelitis in the appropriate clinical setting. No fracture o r dislocation. Soft tissues: Extensive subcutaneous emphysema is present in the plantar forefoot about the 1st throu gh 3rd toes. There soft tissue swelling in the forefoot. Heterogeneous enhancement of the plantar sof t tissues related to the infection. IMPRESSION: 1. Findings suspicious for osteomyelitis in the great toe proximal and distal phalanx. Extensive sub cutaneous emphysema in the plantar forefoot about 1st and 2nd toes consistent with gas-forming bacter ial infection /gas gangrene. No obvious fluid collection. All CT scans at this medical facility are performed using dose modulation techniques as appropriate t o a performed exam including the following: Automated exposure control was utilized; adjustment of th e MA and/or KV according to patient size; and use of iterative reconstruction technique.
[2024-09-08] MEDS ORDERED: MORPHINE SULFATE INJ 2 MG/ml SYRG IV PRN (13:00)
[2024-09-08] MEDS ORDERED: DEXTROSE (50%) 50ML SYRG IV PRN (13:00)
[2024-09-08] MEDS ORDERED: DOCUSATE SOD 100 MG CAP PO PRN (13:00)
[2024-09-08] MEDS ORDERED: ACETAMINOPHEN 325 MG TAB PO PRN (13:00)
[2024-09-08] MEDS ORDERED: ONDANSETRON HCL 4 MG/2 ML VIAL IV PRN (13:00)
--- NOTE | 2024-09-08 13:11 | DVHHP2 ---
History of Present Illness Reason for Visit: right foot wound History of Present Illness Jeff Ruiz is a 69 year year old male with past medical history of diabetes who presents to the ED for right foot pain. Patient reports that 2 weeks ago he had a callus on the plantar side, then on Sunday he noticed that there was some drainage of pus and it was an open wound. Patient stated that he had his clean the foot for him. He is here for an evaluation. Patient reports that he takes metformin for his diabetes and is compliant. He denies fever, chills, shortness of breath, chest pain, tingling, numbness, nausea, vomiting, diarrhea, and abdominal pain. Endocrine: Diabetes Past Surgical History: None Family History Mom and dad - DM Smoke: No ALCOHOL: none Drugs: None Lives: with Family Domestic Violence: Neg Review of Systems Constitutional: No: Fever, Chills, Sweats, Weakness, Malaise, Other Eyes: No: Pain, Vision change, Conjunctivae inflammation, Eyelid inflammation, Other, Redness ENT: No: Ear pain, Ear discharge, Nose pain, Nose discharge, Nose congestion, Mouth pain, Mouth swelling, Throat pain, Throat swelling, Other Respiratory: No: Cough, Dry, Shortness of breath, SOB with excertion, Wheezing, Hemoptysis, Pleuritic Pain, Sputum, Wheezing, Other Cardiovascular: No: Chest Pain, Palpitations, Orthopnea, Paroxysmal Noc. Dyspnea, Edema, Lt Headedness, Other Gastrointestinal: No: Nausea, Vomiting, Abdominal Pain, Diarrhea, Constipation, Melena, Hematochezia, Other Genitourinary: No Dysuria, No Frequency, No Incontinence, No Hematuria, No Retention, No Other Musculoskeletal: foot pain; No: other, neck pain, shoulder pain, arm pain, back pain, hand pain, leg pain Skin: Other (erythema); No: Rash, Lesions, Jaundice, Bruising Neurological: No: Weakness, Numbness, Incoordination, Change in speech, Confusion, Seizures, Other Allergies: Coded Allergies: NO KNOWN ALLERGIES (Unverified , 10/09/20) Medications Current Medications Medications Dose Ordered Sig/Ruby Route Start Time Stop Time Status Last Admin Dose Admin Vancomycin HCl 0 ml @ 0 mls/hr UD IV 09/08/24 09:00 Vancomycin HCl 250 ml @ 250 mls/hr Q18H IV 09/09/24 04:00 Exam Vital Signs Vital Signs Date Time Temp Pulse Resp B/P (MAP) Pulse Ox O2 Delivery O2 Flow Rate FiO2 09/08/24 10:14 Room Air* 0 21 09/08/24 09:13 94 16 97 09/08/24 09:12 97.4 109/68 (82) 97.4 General Appearance: Alert, Oriented X3, Cooperative, No acute distress HEENT: Atraumatic, PERRLA, EOMI, Mucous membr. moist/pink Respiratory: Clear to auscultation, Normal air movement Cardiovascular: Regular rate, Normal S1, Normal S2, No murmurs Abdominal: Normal bowel sounds, Soft, No tenderness, No hepatospenomegaly, No masses Extremities: No clubbing, No cyanosis, Other (R foot erythema and drainage) Neuro: Normal speech, Strength at 5/5 X4 ext, Sensation intact Psych/Mental Status: Mental status NL, Mood NL Labs/Xrays Labs Test 09/08/24 10:50 09/08/24 09:14 Range/Units Troponin I High Sensitivity < 3 L </=54 ng/L White Blood Count 17.3 H 4.4-10.8 10^3/uL Red Blood Count 4.71 4.5-5.90 10^6/uL Hemoglobin 14.1 13.5-17.5 g/dL Hematocrit 41.9 41.0-53.0 % Mean Corpuscular Volume 88.8 80.0-100.0 fL Mean Corpuscular Hemoglobin 29.9 28.0-32.0 pg Mean Corpuscular Hemoglobin Concent 33.7 32.0-36.0 g/dL Red Cell Distribution Width 13.4 11.8-14.3 % Platelet Count 401 140-450 10^3/uL Mean Platelet Volume 8.6 6.9-10.8 fL Neutrophils (%) (Auto) 82.2 H 37.0-80.0 % Lymphocytes (%) (Auto) 10.7 10.0-50.0 % Monocytes (%) (Auto) 5.2 0.0-12.0 % Eosinophils (%) (Auto) 1.4 0.0-7.0 % Basophils (%) (Auto) 0.5 0.0-2.0 % Neutrophils # (Auto) 14.2 H 1.6-8.6 10 ^3/uL Lymphocytes # (Auto) 1.9 0.4-5.4 10 ^3/uL Monocytes # (Auto) 0.9 0-1.3 10 ^3/uL Eosinophils # (Auto) 0.2 0-0.8 10 ^3/uL Basophils # (Auto) 0.1 0-0.2 10 ^3/uL Nucleated Red Blood Cells 0.1 % Erythrocyte Sedimentation Rate 75 H 0-20 mm/hr Prothrombin Time 11.1 9.3-11.8 sec Prothrombin Time INR 1.05 0.9-1.15 Activated Partial Thromboplast Time 25.9 24.5-34.5 SEC Sodium Level 132 L 136-145 mmol/L Potassium Level 3.8 3.5-5.1 mmol/L Chloride Level 96 L 98-107 mmol/L Carbon Dioxide Level 29 20-31 mmol/L Anion Gap 7 5-15 Blood Urea Nitrogen 16 9-23 mg/dL Creatinine 1.11 0.700-1.30 mg/dL Glomerular Filtration Rate Calc 72 >90 mL/min BUN/Creatinine Ratio 14.4 10.0-20.0 Serum Glucose 360 H 74-106 mg/dL Lactic Acid Level 1.8 0.4-2.0 mmol/L Calcium Level 9.6 8.7-10.4 mg/dL Total Bilirubin 0.6 0.2-1.0 mg/dL Aspartate Amino Transferase (AST) 22 13-40 U/L Alanine Aminotransferase (ALT) 22 7-40 U/L Alkaline Phosphatase 114 46-116 U/L C-Reactive Protein High Sensitivity 14.15 H <1.0 mg/dL Total Protein 8.4 H 5.7-8.2 g/dL Albumin 3.9 3.2-4.8 g/dL Procedure: CT RT LOWER EXTREMITY W CON Reason for study/Clinical History: diabetic foot. With contrast pls if renal function allows Comparison Study: None available at time of dictation. Radiation Dose Information: CT Dose: CTDI volume is 7.75 mGy. Dose-length product is 273.31 mGy*cm TECHNIQUE: CT scan of the right leg was performed with intravenous contrast using axial images. Coronal and sagittal reformatted images are submitted. 3D postprocessing images were performed on a dedicated workstation and images were reviewed and interpreted for reporting. FINDINGS: Bones: There is cortical erosion along the plantar aspect of the proximal phalanx of the great toe and another erosion along the dorsal surface of the proximal phalanx at the level of the metatarsophalangeal joint. Cortical irregularity is noted along the plantar surface of the great toe distal phalanx. These findings are concerning for osteomyelitis in the appropriate clinical setting. No fracture or dislocation. Soft tissues: Extensive subcutaneous emphysema is present in the plantar forefoot about the 1st through 3rd toes. There soft tissue swelling in the forefoot. Heterogeneous enhancement of the plantar soft tissues related to the infection. IMPRESSION: 1. Findings suspicious for osteomyelitis in the great toe proximal and distal phalanx. Extensive subcutaneous emphysema in the plantar forefoot about 1st and 2nd toes consistent with gas-forming bacterial infection /gas gangrene. No obvious fluid collection. Assessment/Plan Assessment/Plan Assessment/Plan: Leukocytosis likely 2nd to Osteomyelitis right foot R/O Sepsis Hyponatremia CT RLE IV Abx Podiatry cx ua labs pt/ptt blood cx wound cx esr crp trop neg x 2 ivf am labs DM2 uncontrolled HgbA1c 11.8% ISS and accuchecks FEN/PPX diet IVf DVT ppx lovenox PUD not indicated no hx of GERD Discussed plan of care with patient and nurse Admit to med surg No home medications to reconcile Plan discussed with: Patient My Orders Orders - SILVIA ALVAREZ [employer] Procedure Category Date Status Time *Podiatry Consult CONS 09/08/24 Transmitted Musson([facility]) 12:41 Wound Culture W/ Gs HEAVEN 09/08/24 Logged 12:41 Admit ADMIT 09/08/24 Verified 12:56 Allergies MEENU 09/08/24 Verified 12:56 Code Status CODE 09/08/24 Verified 12:56 0.9% Ns 1000 Ml PHA 09/08/24 Verified 13:00 Hydrocodone-Acet PHA 09/08/24 Verified 5/325mg Tab ([place] 13:00 Ondansetron Hcl PHA 09/08/24 Verified (Zofran) 13:00 Docusate Sodium PHA 09/08/24 Verified Capsule (Colace 13:00 Complete Blood Count LAB 09/09/24 Verified 04:00 Comprehensive LAB 09/09/24 Verified Metabolic Panel 04:00 Cardiac DIET 09/08/24 Verified Diet-2gna,Lofat,Lochol Lunch Acetaminophen Tablet PHA 09/08/24 Verified (Tylenol Tablet) 13:00 Morphine Sulfate PHA 09/08/24 Verified Injection 13:00 Hemoglobin A1c LAB 09/08/24 Verified 12:56 Glucose Blood PHA 09/08/24 Verified (Accu-Chek Comfort 17:00 Bedtime Insulin Scale PHA 09/08/24 Verified 22:00 Moderate Insulin Ss PHA 09/08/24 Verified 17:00 Dextrose 50% Syringe PHA 09/08/24 Verified 13:00 Zosyn Extended PHA 09/08/24 Verified Infusion 14:00 Date of Service: Sep 08, 2024 Billing Provider: SILVIA ALVAREZ Common Visit Codes: [id number] INP/OBS CARE (MOD) SILVIA ALVAREZ Sep 08, 2024 13:11
[2024-09-08 13:50] LABS: Urine Bacteria None Seen /hpf (None Seen)
[2024-09-08] MEDS: PIPERACILLIN-TAZOB 3.375GM 100 ML IV SCH (14:30)
[2024-09-08] MEDS: SODIUM CHLORIDE 0.9% 1,000 ML IV SCH (14:30)
[2024-09-08 14:37] VITALS: BP 120/72; PULSE 76; RESP 28; TEMP 98.4; O2SAT 95
[2024-09-08 14:48] LABS: Urine Blood Negative /uL (Negative); Urine Clarity Clear (Clear); Urine Color Light-Yellow (Yellow); Urine Mucus FEW (None Seen); Urine Protein, UAD Negative (Negative); Urine Squamous Epithelial Cell FEW /hpf (<5); Urine Urobilinogen Normal (Negative); Urine WBC <1 /hpf (0 - 3); Urine pH 6.5 (5.0-9.0)
[2024-09-08] MEDS: ACCU-CHEK COMFORT CURVE STRIP VI SCH (17:36)
[2024-09-08] MEDS: InsuLIN REG 1unit/0.01ml Soln (100units/ml) SC SCH ×2 (17:40→21:15)
[2024-09-08 18:01] VITALS: BP 137/58; PULSE 60; RESP 20; TEMP 99; O2SAT 87
[2024-09-08] MEDS: ENOXAPARIN SOD 100 MG/1 ML SYRINGE SC SCH (21:15)
[2024-09-08 22:31] VITALS: BP 104/59; PULSE 60; RESP 16; TEMP 98.7; O2SAT 95
[2024-09-09] VITALS (7 sets, daily range): BP systolic 102–147; BP diastolic 58–78; PULSE 57–101; RESP 16–19; TEMP 97.4–98.6; O2SAT 95–99
[2024-09-09 03:40] LABS: Basophils # (auto) 0.1 10 ^3/uL (0-0.2); Basophils % (auto) 0.7 % (0.0-2.0); Eosinophils # (auto) 0.4 10 ^3/uL (0-0.8); Eosinophils % (auto) 2.9 % (0.0-7.0); Hemoglobin 11.9 g/dL (13.5-17.5); Lymphocytes # (auto) 2.6 10 ^3/uL (0.4-5.4); Lymphocytes % (auto) 18.2 % (10.0-50.0); Mean Corpuscular Hemoglobin 29.5 pg (28.0-32.0); Mean Corpuscular Hgb Conc. 33.1 g/dL (32.0-36.0); Monocytes # (auto) 0.9 10 ^3/uL (0-1.3); Monocytes % (auto) 6.7 % (0.0-12.0); Neutrophils # (auto) 10.1 10 ^3/uL (1.6-8.6); Neutrophils % (auto) 71.5 % (37.0-80.0); Nucleated Red Blood Cells % 0.1 %; Platelet Count (auto) 327 10^3/uL (140-450); Red Blood Cells 4.04 10^6/uL (4.5-5.90); Red Cell Distribution Width 13.3 % (11.8-14.3); White Blood Cell 14.2 10^3/uL (4.4-10.8)
[2024-09-09 03:54] LABS: Alanine Aminotransferase 18 U/L (7-40); Alkaline Phosphatase 82 U/L (46-116); Anion Gap 6 (5-15); Aspartate Aminotransferase 17 U/L (13-40); BUN/Creatinine Ratio 11.8 (10.0-20.0); Bilirubin, Total 0.5 mg/dL (0.2-1.0); Blood Urea Nitrogen 10 mg/dL (9-23); Carbon Dioxide 26 mmol/L (20-31); Chloride 102 mmol/L (98-107); Potassium 3.9 mmol/L (3.5-5.1)
[2024-09-09 03:55] LABS: Total Protein 6.6 g/dL (5.7-8.2)
[2024-09-09 03:57] LABS: Albumin 3.1 g/dL (3.2-4.8); Calcium 8.5 mg/dL (8.7-10.4); Glucose 163 mg/dL (74-106); Sodium 134 mmol/L (136-145)
[2024-09-09] MEDS: VANCOMYCIN 1GM/250ML KIT 250 ML IV SCH (04:07)
--- NOTE | 2024-09-09 13:13 | DVHINCON2 ---
Date Seen: Sep 09, 2024 Reason for Consultation Right foot wound History of Present Illness Jeff Ruiz is a 69 year year old male with past medical history of diabetes who presents to the ED for right foot pain. Patient reports that 2 weeks ago he had a callus on the plantar side, then on Sunday he noticed that there was some drainage of pus and it was an open wound. Patient stated that he had his clean the foot for him. He is here for an evaluation. Patient reports that he takes metformin for his diabetes and is compliant. He denies fever, chills, shortness of breath, chest pain, tingling, numbness, nausea, vomiting, diarrhea, and abdominal pain. Past Medical History See H&P Past Surgical History See H&P Allergies: Coded Allergies: NO KNOWN ALLERGIES (Unverified , 10/09/20) Current Medications Current Medications Medications (Trade) Dose Ordered Sig/Ruby Route PRN Reason Start Time Stop Time Status Last Admin Vancomycin HCl 250 ml @ 250 mls/hr Q18H IV 09/09/24 04:00 09/09/24 04:07 Diagnostic Test (Pha) (Accu-Chek Comfort Curve T) 1 strip ACHS 09/08/24 17:00 09/09/24 11:56 Insulin Human Regular (InsuLIN R) HS SC 09/08/24 22:00 09/08/24 21:15 Insulin Human Regular (InsuLIN R) AC SC 09/08/24 17:00 09/09/24 11:58 Piperacillin Sod/ Tazobactam Sod 100 ml @ 25 mls/hr Q8HR IV 09/08/24 14:00 09/09/24 05:30 Enoxaparin Sodium (Lovenox) 70 mg Q12HR SC 09/08/24 22:00 09/09/24 08:43 Vital Signs Vital Signs Date Time Temp Pulse Resp B/P (MAP) Pulse Ox O2 Delivery O2 Flow Rate FiO2 09/09/24 08:31 97.4 59 16 102/62 (75) 96 97.4 09/08/24 19:25 Room Air* 0 21 Physical Exam DERMATOLOGIC EXAM: - Skin is dry and cool to the touch dry bilaterally. - Nails 1-5 of the bilateral foot are thickened, discolored, dystrophic, and tender to palpate with subungual debris - Hair loss noted to bilateral feet Wound #1: Location: Right sub 3rd Measurements: Length 1 cm x width 2 cm x depth 1 cm. Wound margins: Hyperkeratotic. Wound base: Full thickness. General Appearance: Malodor Probes to Bone: No Purulent drainage: Yes Serous drainage: No Erythema: Periwound VASCULAR EXAM: - DP and PT pulses are palpable bilaterally. - SECURITY ESCORT is brisk to all digits. - Feet are cool to touch compared to lower legs bilaterally. NEUROLOGIC EXAM: - Normal light touch sensation to the superficial peroneal, deep peroneal, sural, saphenous, and tibial nerve branches. - Protective sensation is diminished as tested with a 5.07 10g [place]ry bilaterally. MUSCULOSKELETAL EXAM: - No gross deformities - Muscle strength is 5/5 and active motion is pain-free and symmetrical bilaterally - No pain or crepitation with passive range of motion bilaterally to all major pedal joints Labs/Diagnostic Data Labs Test 09/09/24 11:49 09/09/24 03:20 09/08/24 13:20 09/08/24 09:21 Range/Units POC Glucose 244 H 70-106 mg/dl White Blood Count 14.2 H 4.4-10.8 10^3/uL Red Blood Count 4.04 L 4.5-5.90 10^6/uL Hemoglobin 11.9 #L 13.5-17.5 g/dL Hematocrit 36.0 #L 41.0-53.0 % Mean Corpuscular Volume 89.0 80.0-100.0 fL Mean Corpuscular Hemoglobin 29.5 28.0-32.0 pg Mean Corpuscular Hemoglobin Concent 33.1 32.0-36.0 g/dL Red Cell Distribution Width 13.3 11.8-14.3 % Platelet Count 327 140-450 10^3/uL Mean Platelet Volume 8.3 6.9-10.8 fL Neutrophils (%) (Auto) 71.5 37.0-80.0 % Lymphocytes (%) (Auto) 18.2 10.0-50.0 % Monocytes (%) (Auto) 6.7 0.0-12.0 % Eosinophils (%) (Auto) 2.9 0.0-7.0 % Basophils (%) (Auto) 0.7 0.0-2.0 % Neutrophils # (Auto) 10.1 H 1.6-8.6 10 ^3/uL Lymphocytes # (Auto) 2.6 0.4-5.4 10 ^3/uL Monocytes # (Auto) 0.9 0-1.3 10 ^3/uL Eosinophils # (Auto) 0.4 0-0.8 10 ^3/uL Basophils # (Auto) 0.1 0-0.2 10 ^3/uL Nucleated Red Blood Cells 0.1 % Sodium Level 134 L 136-145 mmol/L Potassium Level 3.9 3.5-5.1 mmol/L Chloride Level 102 98-107 mmol/L Carbon Dioxide Level 26 20-31 mmol/L Anion Gap 6 5-15 Blood Urea Nitrogen 10 9-23 mg/dL Creatinine 0.85 0.700-1.30 mg/dL Glomerular Filtration Rate Calc 95 >90 mL/min BUN/Creatinine Ratio 11.8 10.0-20.0 Serum Glucose 163 #H 74-106 mg/dL Calcium Level 8.5 L 8.7-10.4 mg/dL Total Bilirubin 0.5 0.2-1.0 mg/dL Aspartate Amino Transferase (AST) 17 13-40 U/L Alanine Aminotransferase (ALT) 18 7-40 U/L Alkaline Phosphatase 82 46-116 U/L Total Protein 6.6 5.7-8.2 g/dL Albumin 3.1 L 3.2-4.8 g/dL Lactic Acid Level 1.0 0.4-2.0 mmol/L Troponin I High Sensitivity < 3 L </=54 ng/L Urine Color Light-yellow Yellow Urine Clarity Clear Clear Urine pH 6.5 5.0-9.0 Urine Specific [place] 1.050 H 1.001-1.035 Urine Protein Negative Negative Urine Ketones Trace Negative Urine Blood Negative Negative /uL Urine Nitrite Negative Negative Urine Bilirubin Negative Negative Urine Urobilinogen Normal Negative mg/dL Urine Leukocyte Esterase Negative Negative /uL Urine RBC 1 0 - 3 /hpf Urine WBC <1 0 - 3 /hpf Urine Squamous Epithelial Cells Few <5 /hpf Urine Bacteria None seen None Seen /hpf Urine Mucus Few None Seen Urine Glucose 4+ H Normal mg/dL Test 09/08/24 09:14 Range/Units Erythrocyte Sedimentation Rate 75 H 0-20 mm/hr Prothrombin Time 11.1 9.3-11.8 sec Prothrombin Time INR 1.05 0.9-1.15 Activated Partial Thromboplast Time 25.9 24.5-34.5 SEC Hemoglobin A1c 11.8 H <5.7 % A1C C-Reactive Protein High Sensitivity 14.15 H <1.0 mg/dL Microbiology Date/Time Source Procedure Growth Status 09/08/24 09:14 Blood Blood Culture - Preliminary NO GROWTH AFTER 24 HOURS OF INCUBATION. Resulted Problems(with codes): (1) Acute respiratory distress (2) Pneumonia due to Coronavirus disease 2019 (3) Sepsis (4) Peripheral arterial disease (5) Diabetes type 2 Plan/Recommendation ASSESSMENT: Patient is a 69-year-old male seen on the floor for a worsening right foot wound PLAN: - The patients chart was reviewed, clinical findings were discussed with the patient, the etiologies of the conditions were discussed in detail, and a treatment plan was agreed to at this time, with both oral and written instructions provided. - reviewed imaging and recommend that patient undergoes an I&D with soft tissue emphysema noted on the CT scan - patient will be NPO at midnight - we will take him to the OR tomorrow at noon - we will obtain cultures at that point - discussed he will likely need multiple washouts to treat the severity of the infection All questions were answered and concerns addressed to the patient's satisfacti on. The patient was given the phone number to the clinic and was told how to make contact with the clinic should any concerns or questions arise. Patient understands that if any questions or concerns arise prior to the next appointment, we should be contacted immediately. FOLLOW-UP: We will continue to follow while inpatient Plan discussed with: Patient Date of Service: Sep 09, 2024 Billing Provider: LIZET SHELDON DPM Common Visit Codes: [id number] INP/OBS CARE (HIGH) LIZET SHELDON DPM Sep 09, 2024 13:13
--- NOTE | 2024-09-09 14:21 | DVHPN2 ---
Subjective Patient denies having any pain to his right foot. Patient also denies having any fevers, chills, body aches. Reviewed: Care Plan, H&P, Labs, Medications Changes from previous H/P or p: No Changes General: Per HPI Eyes: No Pain, No Vision change, No Conjunctivae inflammation, No Eyelid inflammation, No Other, No Redness ENT: No Ear pain, No Ear discharge, No Nose pain, No Nose discharge, No Nose congestion, No Mouth pain, No Mouth swelling, No Throat pain, No Throat swelling, No Other Cardiovascular: No Chest Pain, No Palpitations, No Orthopnea, No Paroxysmal Noc. Dyspnea, No Edema, No Lt Headedness, No Other Respiratory: No Cough, No Dry, No Shortness of breath, No SOB with excertion, No Wheezing, No Hemoptysis, No Pleuritic Pain, No Sputum, No Other Gastrointestinal: No Nausea, No Vomiting, No Abdominal Pain, No Diarrhea, No Constipation, No Melena, No Hematochezia, No Other Genitourinary: No Dysuria, No Frequency, No Incontinence, No Hematuria, No Retention, No Other Musculoskeletal: No other, No neck pain, No shoulder pain, No arm pain, No back pain, No hand pain, No leg pain; foot pain Skin: No Rash, No Lesions, No Jaundice, No Bruising; Other (erythema) Objective Vitals Vital Signs Date Time Temp Pulse Resp B/P (MAP) Pulse Ox O2 Delivery O2 Flow Rate FiO2 09/09/24 13:00 97.7 57 18 142/74 (96) 99 97.7 09/09/24 10:22 Room Air* 0 21 Intake/Output Intake and Output 09/09/24 07:00 Intake Total 4775 ml Balance 4775 ml Intake IV Total 4775 ml General Appearance: Alert, Oriented X3, Cooperative, No acute distress, mild distress HEENT: Atraumatic, PERRLA Lungs: Clear to auscultation, Normal air movement Cardiovascular: Normal S1, Normal S2 Abdomen: Normal bowel sounds, Soft, No tenderness, No hepatospenomegaly Musculoskeletal: Normal sensory function, Normal motor function Neuro: Normal gait, Normal speech Psych/Mental Status: Mental status NL, Mood NL Medications Current Medications Medications Dose Ordered Sig/Ruby Route Start Time Stop Time Status Last Admin Dose Admin Vancomycin HCl 0 ml @ 0 mls/hr UD IV 09/08/24 09:00 Vancomycin HCl 250 ml @ 250 mls/hr Q18H IV 09/09/24 04:00 09/09/24 04:07 250 MLS/HR Sodium Chloride 1,000 ml @ 60 mls/hr [id number] IV 09/08/24 13:00 09/09/24 05:30 60 MLS/HR Acetaminophen/ Hydrocodone Bitart 1 tab Q4HP PRN PO 09/08/24 13:00 Ondansetron HCl 4 mg Q4HP PRN IV 09/08/24 13:00 Docusate Sodium 100 mg BIDPRN PRN PO 09/08/24 13:00 Acetaminophen 650 mg Q6HP PRN PO 09/08/24 13:00 Morphine Sulfate 2 mg Q4HPRN PRN IV 09/08/24 13:00 Diagnostic Test (Pha) 1 strip ACHS 09/08/24 17:00 09/09/24 11:56 1 STRIP Insulin Human Regular HS SC 09/08/24 22:00 09/08/24 21:15 3 UNITS Insulin Human Regular AC SC 09/08/24 17:00 09/09/24 11:58 6 UNITS Dextrose 50 ml UD PRN IV 09/08/24 13:00 Piperacillin Sod/ Tazobactam Sod 100 ml @ 25 mls/hr Q8HR IV 09/08/24 14:00 09/09/24 13:47 25 MLS/HR Enoxaparin Sodium 70 mg Q12HR SC 09/08/24 22:00 09/09/24 08:43 70 MG Laboratory Results Laboratory Tests 09/09/24 03:20 Chemistry Test 09/09/24 03:20 Albumin 3.1 g/dL (3.2-4.8) L Calcium Level 8.5 mg/dL (8.7-10.4) L Total Protein 6.6 g/dL (5.7-8.2) LFT Test 09/09/24 03:20 Alanine Aminotransferase (ALT) 18 U/L (7-40) Alkaline Phosphatase 82 U/L (46-116) Aspartate Amino Transferase (AST) 17 U/L (13-40) Total Bilirubin 0.5 mg/dL (0.2-1.0) Urinalysis Test 09/08/24 09:21 Urine Color Light-yellow (Yellow) Urine Clarity Clear (Clear) Urine pH 6.5 (5.0-9.0) Urine Specific [place] 1.050 (1.001-1.035) Urine Protein Negative (Negative) Urine Ketones Trace (Negative) Urine Blood Negative /uL (Negative) Urine Nitrite Negative (Negative) Urine Bilirubin Negative (Negative) Urine Urobilinogen Normal mg/dL (Negative) Urine Leukocyte Esterase Negative /uL (Negative) Urine RBC 1 /hpf (0 - 3) Urine WBC <1 /hpf (0 - 3) Urine Squamous Epithelial Cells Few /hpf (<5) Urine Bacteria None seen /hpf (None Seen) Urine Mucus Few (None Seen) Urine Glucose 4+ mg/dL (Normal) H Microbiology Microbiology Date/Time Source Procedure Growth Status 09/08/24 09:14 Blood Blood Culture - Preliminary NO GROWTH AFTER 24 HOURS OF INCUBATION. Resulted Labs and/or images reviewed: Labs reviewed by me, Image(s) reviewed by me Assessment/Plan Assessment/Plan Impression: -right foot osteomyelitis -diabetes mellitus, uncontrolled with hemoglobin A1c 11.8 -rule out peripheral arterial disease -peripheral neuropathy Plan: -Given nonhealing foot ulcer, with palpable, but weak pulses to right lower extremity, arterial study will be ordered. -podiatry consultation -regular insulin sliding scale -wound and blood culture -elementary educator consultation -wound care per podiatry/wound care nurse -continue antibiotic therapy with vancomycin and Zosyn. We will deescalate, alter based on cultures and renal function Total time spent with patient discussing and formulating plan of care: 35 minutes. This medical document was created using an electronic medical record system with [employer] dictation system. Although this document has been carefully reviewed, there may still be some phonetic and typographical errors. These areas are purely typographical due to imperfections of the software programs, and do not reflect any compromise in the patient's medical care. Plan discussed with: Patient, Other (RN) My Orders Orders - MONSE SHELTON NP Procedure Category Date Status Time Rt Low Ext Art Duplex US 09/09/24 Logged 14:11 Complete Blood Count LAB 09/10/24 Verified 04:00 Date of Service: Sep 09, 2024 Billing Provider: MONSE SHELTON NP Common Visit Codes: [id number] INP/OBS CARE(HIGH) MONSE SHELTON NP Sep 09, 2024 14:21
[2024-09-09 14:34] LABS: Triglycerides 89 mg/dL (< 150)
[2024-09-09 14:35] LABS: LDL Cholesterol 50 mg/dL (< 100)
[2024-09-09 14:36] LABS: Cholesterol 93 mg/dL (< 200)
[2024-09-09 14:44] LABS: HDL Cholesterol 28 mg/dL (40-59)
--- NOTE | 2024-09-09 16:53 | DVH ---
Right Lower Extremity Arterial Duplex Clinical History: Non healing diabetic foot wound, PAD Comparison: None Technique: Duplex Doppler evaluation including color Doppler and spectral/pulsed waveform analysis of the lower extremity arteries was performed. Findings: RIGHT: Peak systolic velocities are as follows: AUTOMATED CUTTING MACHINE OPERATOR 108.6 cm/s Deep femoral 130.2 cm/s SFA proximal 103.2 cm/s SFA mid-portion 83.3 cm/s SFA distal 122.6 cm/s Popliteal 81.5 cm/s Posterior tibial 100.0 cm/s Anterior tibial 61.3 cm/s Dorsalis pedis 76.0 cm/s The waveforms are triphasic with diastolic flow, with the exception of the anterior tibial artery whi ch is monophasic. Moderate atherosclerosis. IMPRESSION: 1. No hemodynamically significant stenosis based on peak systolic velocity criteria. 2. Moderate atherosclerosis. REFERENCE VALUES, [facility] ([facility]) vascular Imaging Lab Criteria: Peak systolic velocity ranges (in cm/sec) are as follows: <150 cm/s - <20 % stenosis 150-200 cm/s - 20-49% stenosis 200-300 cm/s - 50-75% stenosis >300 cm/s -> 75% stenosis
[2024-09-10] VITALS (7 sets, daily range): BP systolic 101–142; BP diastolic 52–77; PULSE 54–77; RESP 17–19; TEMP 97.9–98.9; O2SAT 92–98
[2024-09-10 06:31] LABS: Basophils # (auto) 0.1 10 ^3/uL (0-0.2); Basophils % (auto) 0.7 % (0.0-2.0); Eosinophils # (auto) 0.4 10 ^3/uL (0-0.8); Eosinophils % (auto) 3.7 % (0.0-7.0); Hematocrit 36.7 % (41.0-53.0); Hemoglobin 12.4 g/dL (13.5-17.5); Lymphocytes # (auto) 2.5 10 ^3/uL (0.4-5.4); Lymphocytes % (auto) 22.1 % (10.0-50.0); Mean Corpuscular Hemoglobin 29.8 pg (28.0-32.0); Mean Corpuscular Hgb Conc. 33.6 g/dL (32.0-36.0); Mean Corpuscular Volume 88.5 fL (80.0-100.0); Monocytes # (auto) 0.9 10 ^3/uL (0-1.3); Monocytes % (auto) 7.5 % (0.0-12.0); Neutrophils # (auto) 7.6 10 ^3/uL (1.6-8.6); Nucleated Red Blood Cells % 0.1 %; Platelet Count (auto) 341 10^3/uL (140-450); Red Blood Cells 4.15 10^6/uL (4.5-5.90); Red Cell Distribution Width 13.3 % (11.8-14.3); White Blood Cell 11.5 10^3/uL (4.4-10.8)
[2024-09-10 06:42] LABS: Anion Gap 4 (5-15); Carbon Dioxide 29 mmol/L (20-31); Chloride 101 mmol/L (98-107); Potassium 4.2 mmol/L (3.5-5.1)
[2024-09-10 06:43] LABS: Calcium 9.1 mg/dL (8.7-10.4)
[2024-09-10 06:48] LABS: BUN/Creatinine Ratio 8.9 (10.0-20.0)
[2024-09-10 06:53] LABS: Blood Urea Nitrogen 9 mg/dL (9-23); Glucose 218 mg/dL (74-106); Sodium 134 mmol/L (136-145)
--- NOTE | 2024-09-10 11:29 | DVHPN2 ---
Subjective Denies any new symptoms. Reviewed: Care Plan, H&P, Labs, Medications Changes from previous H/P or p: No Changes General: Per HPI Eyes: No Pain, No Vision change, No Conjunctivae inflammation, No Eyelid inflammation, No Other, No Redness ENT: No Ear pain, No Ear discharge, No Nose pain, No Nose discharge, No Nose congestion, No Mouth pain, No Mouth swelling, No Throat pain, No Throat swelling, No Other Cardiovascular: No Chest Pain, No Palpitations, No Orthopnea, No Paroxysmal Noc. Dyspnea, No Edema, No Lt Headedness, No Other Respiratory: No Cough, No Dry, No Shortness of breath, No SOB with excertion, No Wheezing, No Hemoptysis, No Pleuritic Pain, No Sputum, No Other Gastrointestinal: No Nausea, No Vomiting, No Abdominal Pain, No Diarrhea, No Constipation, No Melena, No Hematochezia, No Other Genitourinary: No Dysuria, No Frequency, No Incontinence, No Hematuria, No Retention, No Other Musculoskeletal: No other, No neck pain, No shoulder pain, No arm pain, No back pain, No hand pain, No leg pain; foot pain Skin: No Rash, No Lesions, No Jaundice, No Bruising; Other (erythema) Objective Vitals Vital Signs Date Time Temp Pulse Resp B/P (MAP) Pulse Ox O2 Delivery O2 Flow Rate FiO2 09/10/24 09:00 97.9 59 17 121/68 (85) 96 97.9 09/10/24 08:10 Room Air* 0 21 Intake/Output Intake and Output 09/10/24 07:00 Intake Total 1535 ml Balance 1535 ml Intake Oral 1360 ml IV Total 175 ml # Voids 4 General Appearance: Alert, Oriented X3, Cooperative, No acute distress HEENT: Atraumatic, PERRLA Lungs: Clear to auscultation, Normal air movement Cardiovascular: Normal S1, Normal S2 Abdomen: Normal bowel sounds, Soft, No tenderness, No hepatospenomegaly Musculoskeletal: Normal sensory function, Normal motor function Neuro: Normal gait, Normal speech Psych/Mental Status: Mental status NL, Mood NL Medications Current Medications Medications Dose Ordered Sig/Ruby Route Start Time Stop Time Status Last Admin Dose Admin Vancomycin HCl 0 ml @ 0 mls/hr UD IV 09/08/24 09:00 Vancomycin HCl 250 ml @ 250 mls/hr Q18H IV 09/09/24 04:00 09/09/24 22:24 250 MLS/HR Sodium Chloride 1,000 ml @ 60 mls/hr [id number] IV 09/08/24 13:00 09/09/24 22:28 60 MLS/HR Acetaminophen/ Hydrocodone Bitart 1 tab Q4HP PRN PO 09/08/24 13:00 Ondansetron HCl 4 mg Q4HP PRN IV 09/08/24 13:00 Docusate Sodium 100 mg BIDPRN PRN PO 09/08/24 13:00 Acetaminophen 650 mg Q6HP PRN PO 09/08/24 13:00 Morphine Sulfate 2 mg Q4HPRN PRN IV 09/08/24 13:00 Diagnostic Test (Pha) 1 strip ACHS 09/08/24 17:00 09/10/24 10:44 1 STRIP Insulin Human Regular HS SC 09/08/24 22:00 09/09/24 22:13 6 UNITS Insulin Human Regular AC SC 09/08/24 17:00 09/10/24 05:10 6 UNITS Dextrose 50 ml UD PRN IV 09/08/24 13:00 Piperacillin Sod/ Tazobactam Sod 100 ml @ 25 mls/hr Q8HR IV 09/08/24 14:00 09/10/24 05:03 25 MLS/HR Laboratory Results Laboratory Tests 09/10/24 05:44 Chemistry Test 09/10/24 05:44 Calcium Level 9.1 mg/dL (8.7-10.4) Urinalysis Test 09/08/24 09:21 Urine Color Light-yellow (Yellow) Urine Clarity Clear (Clear) Urine pH 6.5 (5.0-9.0) Urine Specific [place] 1.050 (1.001-1.035) Urine Protein Negative (Negative) Urine Ketones Trace (Negative) Urine Blood Negative /uL (Negative) Urine Nitrite Negative (Negative) Urine Bilirubin Negative (Negative) Urine Urobilinogen Normal mg/dL (Negative) Urine Leukocyte Esterase Negative /uL (Negative) Urine RBC 1 /hpf (0 - 3) Urine WBC <1 /hpf (0 - 3) Urine Squamous Epithelial Cells Few /hpf (<5) Urine Bacteria None seen /hpf (None Seen) Urine Mucus Few (None Seen) Urine Glucose 4+ mg/dL (Normal) H Microbiology Microbiology Date/Time Source Procedure Growth Status 09/08/24 09:14 Blood Blood Culture - Preliminary NO GROWTH AFTER 48 HOURS OF INCUBATION. Resulted Labs and/or images reviewed: Labs reviewed by me, Image(s) reviewed by me Assessment/Plan Assessment/Plan Impression: -right foot osteomyelitis -diabetes mellitus, uncontrolled with hemoglobin A1c 11.8 -rule out peripheral arterial disease -peripheral neuropathy Plan: -events: Arterial ultrasound of right lower extremity reviewed. No flow limitation requiring intervention. Wound cultures pending. Plans for podiatry: Intervention OR today. -podiatry consultation -regular insulin sliding scale -wound and blood culture -wound care per podiatry/wound care nurse -continue antibiotic therapy with vancomycin and Zosyn. We will deescalate, alter based on cultures and renal function Total time spent with patient discussing and formulating plan of care: 35 minutes. This medical document was created using an electronic medical record system with [employer] dictation system. Although this document has been carefully reviewed, there may still be some phonetic and typographical errors. These areas are purely typographical due to imperfections of the software programs, and do not reflect any compromise in the patient's medical care. Plan discussed with: Patient, Other (RN) My Orders Orders - MONSE SHELTON NP Procedure Category Date Status Time Rt Low Ext Art Duplex US 09/09/24 Resulted 14:11 Date of Service: Sep 10, 2024 Billing Provider: [facility] INT Common Visit Codes: [id number] INP/OBS CARE(HIGH) MONSE SHELTON NP Sep 10, 2024 11:29
--- NOTE | 2024-09-10 12:15 | DVHPN2 ---
Subjective Knees, Jeff Hernandez is a 69 year year old male with past medical history of diabetes who presents to the ED for right foot pain. Patient reports that 2 weeks ago he had a callus on the plantar side, then on Sunday he noticed that there was some drainage of pus and it was an open wound. Patient stated that he had his clean the foot for him. He is here for an evaluation. Patient reports that he takes metformin for his diabetes and is compliant. He denies fever, chills, shortness of breath, chest pain, tingling, numbness, nausea, vomiting, diarrhea, and abdominal pain. Reviewed: Care Plan, H&P, Labs, Medications Changes from previous H/P or p: No Changes General: Per HPI Eyes: No Pain, No Vision change, No Conjunctivae inflammation, No Eyelid inflammation, No Other, No Redness ENT: No Ear pain, No Ear discharge, No Nose pain, No Nose discharge, No Nose congestion, No Mouth pain, No Mouth swelling, No Throat pain, No Throat swelling, No Other Cardiovascular: No Chest Pain, No Palpitations, No Orthopnea, No Paroxysmal Noc. Dyspnea, No Edema, No Lt Headedness, No Other Respiratory: No Cough, No Dry, No Shortness of breath, No SOB with excertion, No Wheezing, No Hemoptysis, No Pleuritic Pain, No Sputum, No Other Gastrointestinal: No Nausea, No Vomiting, No Abdominal Pain, No Diarrhea, No Constipation, No Melena, No Hematochezia, No Other Genitourinary: No Dysuria, No Frequency, No Incontinence, No Hematuria, No Retention, No Other Musculoskeletal: No other, No neck pain, No shoulder pain, No arm pain, No back pain, No hand pain, No leg pain; foot pain Skin: No Rash, No Lesions, No Jaundice, No Bruising; Other (erythema) Objective Vitals Vital Signs Date Time Temp Pulse Resp B/P (MAP) Pulse Ox O2 Delivery O2 Flow Rate FiO2 09/10/24 09:00 97.9 59 17 121/68 (85) 96 97.9 09/10/24 08:10 Room Air* 0 21 Intake/Output Intake and Output 09/10/24 07:00 Intake Total 1535 ml Balance 1535 ml Intake Oral 1360 ml IV Total 175 ml # Voids 4 Exam DERMATOLOGIC EXAM: - Skin is dry and cool to the touch dry bilaterally. - Nails 1-5 of the bilateral foot are thickened, discolored, dystrophic, and tender to palpate with subungual debris - Hair loss noted to bilateral feet Wound #1: Location: Right sub 3rd Measurements: Length 1 cm x width 2 cm x depth 1 cm. Wound margins: Hyperkeratotic. Wound base: Full thickness. General Appearance: Malodor Probes to Bone: No Purulent drainage: Yes Serous drainage: No Erythema: Periwound VASCULAR EXAM: - DP and PT pulses are palpable bilaterally. - LICENSED OPTICAL DISPENSER is brisk to all digits. - Feet are cool to touch compared to lower legs bilaterally. NEUROLOGIC EXAM: - Normal light touch sensation to the superficial peroneal, deep peroneal, sural, saphenous, and tibial nerve branches. - Protective sensation is diminished as tested with a 5.07 10g [place] bilaterally. MUSCULOSKELETAL EXAM: - No gross deformities - Muscle strength is 5/5 and active motion is pain-free and symmetrical bilaterally - No pain or crepitation with passive range of motion bilaterally to all major pedal joints General Appearance: Alert, Oriented X3, Cooperative, No acute distress HEENT: Atraumatic, PERRLA Lungs: Clear to auscultation, Normal air movement Cardiovascular: Normal S1, Normal S2 Abdomen: Normal bowel sounds, Soft, No tenderness, No hepatospenomegaly Musculoskeletal: Normal sensory function, Normal motor function Neuro: Normal gait, Normal speech Psych/Mental Status: Mental status NL, Mood NL Medications Current Medications Medications Dose Ordered Sig/Ruby Route Start Time Stop Time Status Last Admin Dose Admin Vancomycin HCl 0 ml @ 0 mls/hr UD IV 09/08/24 09:00 Vancomycin HCl 250 ml @ 250 mls/hr Q18H IV 09/09/24 04:00 09/09/24 22:24 250 MLS/HR Sodium Chloride 1,000 ml @ 60 mls/hr [id number] IV 09/08/24 13:00 09/09/24 22:28 60 MLS/HR Acetaminophen/ Hydrocodone Bitart 1 tab Q4HP PRN PO 09/08/24 13:00 Ondansetron HCl 4 mg Q4HP PRN IV 09/08/24 13:00 Docusate Sodium 100 mg BIDPRN PRN PO 09/08/24 13:00 Acetaminophen 650 mg Q6HP PRN PO 09/08/24 13:00 Morphine Sulfate 2 mg Q4HPRN PRN IV 09/08/24 13:00 Diagnostic Test (Pha) 1 strip ACHS 09/08/24 17:00 09/10/24 10:44 1 STRIP Insulin Human Regular HS SC 09/08/24 22:00 09/09/24 22:13 6 UNITS Insulin Human Regular AC SC 09/08/24 17:00 09/10/24 05:10 6 UNITS Dextrose 50 ml UD PRN IV 09/08/24 13:00 Piperacillin Sod/ Tazobactam Sod 100 ml @ 25 mls/hr Q8HR IV 09/08/24 14:00 09/10/24 05:03 25 MLS/HR Laboratory Results Laboratory Tests 09/10/24 05:44 Chemistry Test 09/10/24 05:44 Calcium Level 9.1 mg/dL (8.7-10.4) Urinalysis Test 09/08/24 09:21 Urine Color Light-yellow (Yellow) Urine Clarity Clear (Clear) Urine pH 6.5 (5.0-9.0) Urine Specific [place] 1.050 (1.001-1.035) Urine Protein Negative (Negative) Urine Ketones Trace (Negative) Urine Blood Negative /uL (Negative) Urine Nitrite Negative (Negative) Urine Bilirubin Negative (Negative) Urine Urobilinogen Normal mg/dL (Negative) Urine Leukocyte Esterase Negative /uL (Negative) Urine RBC 1 /hpf (0 - 3) Urine WBC <1 /hpf (0 - 3) Urine Squamous Epithelial Cells Few /hpf (<5) Urine Bacteria None seen /hpf (None Seen) Urine Mucus Few (None Seen) Urine Glucose 4+ mg/dL (Normal) H Microbiology Microbiology Date/Time Source Procedure Growth Status 09/08/24 09:14 Blood Blood Culture - Preliminary NO GROWTH AFTER 48 HOURS OF INCUBATION. Resulted Assessment/Plan Assessment/Plan ASSESSMENT: Patient is a 69-year-old male seen on the floor for a worsening right foot wound PLAN: - The patients chart was reviewed, clinical findings were discussed with the patient, the etiologies of the conditions were discussed in detail, and a treatment plan was agreed to at this time, with both oral and written instructions provided. - reviewed imaging and recommend that patient undergoes an I&D with soft tissue emphysema noted on the CT scan - patient will be NPO since midnight - we will take him to the OR today - we will obtain cultures at that point - discussed he will likely need multiple washouts to treat the severity of the infection All questions were answered and concerns addressed to the patient's satisfaction. The patient was given the phone number to the clinic and was told how to make contact with the clinic should any concerns or questions arise. Patient understands that if any questions or concerns arise prior to the next appointment, we should be contacted immediately. FOLLOW-UP: We will continue to follow while inpatient Plan discussed with: Patient My Orders Orders - LIZET SHELDON DPM Procedure Category Date Status Time Npo After Midnight DIET 09/09/24 Transmitted Lunch Obtain Consent For: ORDERS 09/09/24 Transmitted 13:09 Problem List: (1) Sepsis (2) Peripheral arterial disease (3) Diabetes type 2 (4) Acute respiratory distress (5) Pneumonia due to Coronavirus disease 2018 Date of Service: Sep 10, 2024 Billing Provider: LIZET SHELDON DPM Common Visit Codes: [id number] INP/OBS CARE(MOD) LIZET SHELDON DPM Sep 10, 2024 12:15
[2024-09-10] MEDS ORDERED: ONDANSETRON HCL 4 MG/2 ML VIAL ONE (13:16)
[2024-09-10] MEDS ORDERED: DexAMETHasone SOD PHOS 10MG/1ML VIAL INJ ONE ×2 (13:16→16:18)
[2024-09-10] MEDS ORDERED: PROPOFOL 10 MG/ML 20 ML IV ONE (13:16)
[2024-09-10] MEDS ORDERED: KETOROLAC TROMETH 30 MG/ML 1ML VIAL ONE (13:16)
[2024-09-10] MEDS ORDERED: LIDOCAINE 1% INJ PF 5ML AMP ONE (13:16)
[2024-09-10] MEDS ORDERED: GLYCOPYRROLATE 0.2 MG/ML 1ML VIAL ONE (13:17)
[2024-09-10] MEDS: ceFAZolin 2 GM/D5W100ml 100 ML IV ONE (13:53)
[2024-09-10] MEDS ORDERED: MIDAZOLAM HCL 2MG/2ML 2ml VIAL (1mg/ml) ONE (15:11)
[2024-09-10] MEDS ORDERED: fentaNYL CITRATE 100 MCG/2 ML VL ONE (15:11)
[2024-09-10] MEDS: BUPIVACAINE HCL 50 ML ONE (16:01)
[2024-09-10] MEDS ORDERED: diphenhdrAMINE HCL 50 MG/1 ML VL ONE (16:18)
--- NOTE | 2024-09-10 16:19 | DVHOP2 ---
Operative Report - 2 Report Details Date: 09/10/24 Preop Diagnosis: 1. Right foot gas gangrene 2. Right foot abscess 3. Right foot diabetic ulcer Postop Diagnosis: Same as preop Surgeon: Lizet Sheldon MD Anesthesiologist: See anesthesia Anesthesia: Mac Consent: The patient was informed of the risks and benefits of the procedure. These include but are not limited to complications of anesthesia, postoperative infection, incomplete relief of symptoms, recurrence of symptoms, damage to blood vessels, nerves and tendons, deep venous thrombosis, pulmonary embolism and possible need for repeat surgery in the future. Complications: None Estimated Blood Loss: Minimal Fluids: See anesthesia Findings: Consistent with diagnosis Indications for Surgery: Worsening right foot wound Name of Procedure Performed 1. Right foot I&D to bone ([id number]) Procedure Details Procedure Details: PRE-PROCEDURE INFORMATION: In the pre-op holding area, the extremity to be operated on was clearly marked and the patient verified correct laterality of the marking. The patient was transferred to the OR table and placed in a supine position. A timeout was performed in which identification of the correct patient, procedure, location, and materials was done. The right foot and leg were prepped and draped in normal sterile fashion. The foot and leg were exsanguinated and the thigh tourniquet was inflated to 250 mmHg. DESCRIPTION OF PROCEDURE: Attention was directed to the right where area of fluctuance was noted. An incision was made over this area and was deepened through blunt dissection. The incision was deepened to the level of abscess and bone. Care was taken to the dissection to avoid any neurovascular and tendinous structures. The incision was deepened to the bone, and the abscess appeared to be purulent fluid consistent with pus. After the abscess was drained, the area was irrigated with 3 L normal saline using cysto tubing. Deep cultures were then obtained from the wound. The area was then inspected and any areas of tracking, especially along the tendons were also drained. The wound was packed with Betadine-soaked gauze and we will need to be closed at a later date. A dry sterile dressing was placed on the surgical extremity. The patient was placed in a postop shoe. POSTOPERATIVE INFORMATION: The patient tolerated the above noted procedure and anesthesia well and was transferred to the PACU with vital signs stable, and vascular status intact with capillary refill intact to all digits. Cultures were taken in the OR. Patient will have to return to the OR on Sunday for repeat incision and drainage as there were significant necrosis. Condition Good Disposition Still a Patient LIZET SHELDON DPM Sep 10, 2024 16:19
[2024-09-10] MEDS ORDERED: MORPHINE SULFATE 4 MG/ML SYR/VIAL IV PRN (16:30)
[2024-09-10] MEDS ORDERED: HYDROmorphone HCL 2 MG/ML VL/or syr IV PRN (16:30)
[2024-09-10] MEDS ORDERED: hydrALAZINE HCL 20 MG/ML VL IV PRN (16:30)
[2024-09-10] MEDS ORDERED: MIDAZOLAM HCL 2MG/2ML 2ml VIAL (1mg/ml) IV PRN (16:30)
[2024-09-10] MEDS: ONDANSETRON HCL 4 MG/2 ML VIAL IV ONE (16:30)
[2024-09-10] MEDS ORDERED: ePHEDrine SULFATE 50 MG/ML AMP IV PRN (16:30)
[2024-09-10] MEDS: HYDROcodone-ACET 5/325MG TAB PO PRN (17:59)
[2024-09-11] VITALS (7 sets, daily range): BP systolic 98–129; BP diastolic 55–70; PULSE 60–73; RESP 16–19; TEMP 98.3–99.5; O2SAT 91–95
[2024-09-11 06:33] LABS: Chloride 98 mmol/L (98-107); Potassium 4.5 mmol/L (3.5-5.1)
[2024-09-11 06:34] LABS: Anion Gap 4 (5-15); Calcium 8.8 mg/dL (8.7-10.4); Carbon Dioxide 30 mmol/L (20-31)
[2024-09-11 06:36] LABS: Basophils # (auto) 0.1 10 ^3/uL (0-0.2); Basophils % (auto) 0.6 % (0.0-2.0); Eosinophils # (auto) 0.4 10 ^3/uL (0-0.8); Eosinophils % (auto) 3.1 % (0.0-7.0); Hematocrit 36.7 % (41.0-53.0); Hemoglobin 12.6 g/dL (13.5-17.5); Lymphocytes # (auto) 2.4 10 ^3/uL (0.4-5.4); Lymphocytes % (auto) 17.4 % (10.0-50.0); Mean Corpuscular Hemoglobin 30.3 pg (28.0-32.0); Mean Corpuscular Hgb Conc. 34.3 g/dL (32.0-36.0); Mean Corpuscular Volume 88.4 fL (80.0-100.0); Monocytes # (auto) 1.1 10 ^3/uL (0-1.3); Monocytes % (auto) 8.1 % (0.0-12.0); Neutrophils # (auto) 9.6 10 ^3/uL (1.6-8.6); Neutrophils % (auto) 70.8 % (37.0-80.0); Nucleated Red Blood Cells % 0.1 %; Platelet Count (auto) 364 10^3/uL (140-450); Red Blood Cells 4.15 10^6/uL (4.5-5.90); Red Cell Distribution Width 13.3 % (11.8-14.3); White Blood Cell 13.6 10^3/uL (4.4-10.8)
[2024-09-11 06:39] LABS: BUN/Creatinine Ratio 10.1 (10.0-20.0); Sodium 132 mmol/L (136-145)
[2024-09-11 06:40] LABS: Blood Urea Nitrogen 9 mg/dL (9-23); Glucose 204 mg/dL (74-106)
[2024-09-11] MEDS ORDERED: VANCOMYCIN 1GM/250ML KIT 250 ML IV SCH (12:00)
[2024-09-11] MEDS: VANCOMYCIN 1GM/250ML KIT 250 ML IV SCH (13:11)
--- NOTE | 2024-09-11 13:19 | DVHPN2 ---
Subjective Denies any new symptoms. Reviewed: Care Plan, H&P, Labs, Medications Changes from previous H/P or p: No Changes General: Per HPI Eyes: No Pain, No Vision change, No Conjunctivae inflammation, No Eyelid inflammation, No Other, No Redness ENT: No Ear pain, No Ear discharge, No Nose pain, No Nose discharge, No Nose congestion, No Mouth pain, No Mouth swelling, No Throat pain, No Throat swelling, No Other Cardiovascular: No Chest Pain, No Palpitations, No Orthopnea, No Paroxysmal Noc. Dyspnea, No Edema, No Lt Headedness, No Other Respiratory: No Cough, No Dry, No Shortness of breath, No SOB with excertion, No Wheezing, No Hemoptysis, No Pleuritic Pain, No Sputum, No Other Gastrointestinal: No Nausea, No Vomiting, No Abdominal Pain, No Diarrhea, No Constipation, No Melena, No Hematochezia, No Other Genitourinary: No Dysuria, No Frequency, No Incontinence, No Hematuria, No Retention, No Other Musculoskeletal: No other, No neck pain, No shoulder pain, No arm pain, No back pain, No hand pain, No leg pain; foot pain Skin: No Rash, No Lesions, No Jaundice, No Bruising; Other (erythema) Objective Vitals Vital Signs Date Time Temp Pulse Resp B/P (MAP) Pulse Ox O2 Delivery O2 Flow Rate FiO2 09/11/24 13:00 99.2 63 19 98/55 (69) 94 99.2 09/11/24 08:00 Room Air* 0 21 Intake/Output Intake and Output 09/11/24 07:00 Intake Total 850 ml Output Total 2200 ml Balance -1350 ml Intake Oral 450 ml IV Total 400 ml Output Urine Total 2200 ml General Appearance: Alert, Oriented X3, Cooperative, No acute distress HEENT: Atraumatic, PERRLA Lungs: Clear to auscultation, Normal air movement Cardiovascular: Normal S1, Normal S2 Abdomen: Normal bowel sounds, Soft, No tenderness, No hepatospenomegaly Musculoskeletal: Normal sensory function, Normal motor function Neuro: Normal gait, Normal speech Psych/Mental Status: Mental status NL, Mood NL Medications Current Medications Medications Dose Ordered Sig/Ruby Route Start Time Stop Time Status Last Admin Dose Admin Vancomycin HCl 0 ml @ 0 mls/hr UD IV 09/08/24 09:00 Sodium Chloride 1,000 ml @ 60 mls/hr [id number] IV 09/08/24 13:00 09/11/24 10:50 60 MLS/HR Acetaminophen/ Hydrocodone Bitart 1 tab Q4HP PRN PO 09/08/24 13:00 09/10/24 22:27 1 TAB Ondansetron HCl 4 mg Q4HP PRN IV 09/08/24 13:00 Docusate Sodium 100 mg BIDPRN PRN PO 09/08/24 13:00 Acetaminophen 650 mg Q6HP PRN PO 09/08/24 13:00 Morphine Sulfate 2 mg Q4HPRN PRN IV 09/08/24 13:00 Diagnostic Test (Pha) 1 strip ACHS 09/08/24 17:00 09/11/24 11:10 1 STRIP Insulin Human Regular HS SC 09/08/24 22:00 09/10/24 22:16 6 UNITS Insulin Human Regular AC SC 09/08/24 17:00 09/11/24 11:11 9 UNITS Dextrose 50 ml UD PRN IV 09/08/24 13:00 Piperacillin Sod/ Tazobactam Sod 100 ml @ 25 mls/hr Q8HR IV 09/08/24 14:00 09/11/24 06:18 25 MLS/HR Vancomycin HCl 250 ml @ 250 mls/hr Q12H IV 09/11/24 12:00 09/11/24 13:11 250 MLS/HR Laboratory Results Laboratory Tests 09/11/24 05:15 Chemistry Test 09/11/24 05:15 Calcium Level 8.8 mg/dL (8.7-10.4) Urinalysis Test 09/08/24 09:21 Urine Color Light-yellow (Yellow) Urine Clarity Clear (Clear) Urine pH 6.5 (5.0-9.0) Urine Specific [place] 1.050 (1.001-1.035) Urine Protein Negative (Negative) Urine Ketones Trace (Negative) Urine Blood Negative /uL (Negative) Urine Nitrite Negative (Negative) Urine Bilirubin Negative (Negative) Urine Urobilinogen Normal mg/dL (Negative) Urine Leukocyte Esterase Negative /uL (Negative) Urine RBC 1 /hpf (0 - 3) Urine WBC <1 /hpf (0 - 3) Urine Squamous Epithelial Cells Few /hpf (<5) Urine Bacteria None seen /hpf (None Seen) Urine Mucus Few (None Seen) Urine Glucose 4+ mg/dL (Normal) H Microbiology Microbiology Date/Time Source Procedure Growth Status 09/10/24 16:11 Foot Right Gram Stain Pending Resulted 09/10/24 16:11 Foot Right Anaerobic Culture - Preliminary Resulted 09/10/24 16:11 Foot Right Aerobic Culture - Preliminary Resulted 09/08/24 09:14 Blood Blood Culture - Preliminary NO GROWTH AFTER 72 HOURS OF INCUBATION. Resulted Labs and/or images reviewed: Labs reviewed by me, Image(s) reviewed by me Assessment/Plan Assessment/Plan Impression: -right foot osteomyelitis -diabetes mellitus, uncontrolled with hemoglobin A1c 11.8 -rule out peripheral arterial disease -peripheral neuropathy Plan: -events: Plans for re-exploration of diabetic foot wound tomorrow. ID consultation placed. Dietary consultation placed. -podiatry consultation -regular insulin sliding scale , add Lantus 15 units q.h.s. -wound and blood culture : Pending -wound care per podiatry/wound care nurse -antibiotic therapy per Infectious Disease. Continue Zosyn and vancomycin at this time. Total time spent with patient discussing and formulating plan of care: 35 minutes. This medical document was created using an electronic medical record system with [employer] dictation system. Although this document has been carefully reviewed, there may still be some phonetic and typographical errors. These areas are purely typographical due to imperfections of the software programs, and do not reflect any compromise in the patient's medical care. Plan discussed with: Patient, Spouse, Other (RN) My Orders Orders - MONSE SHELTON NP Procedure Category Date Status Time * Infectious [place]- CONS 09/11/24 Transmitted K Gavin 11:39 Consistent DIET 09/11/24 Transmitted Carb([facility])Diabetes Lunch Date of Service: Sep 11, 2024 Billing Provider: MONSE SHELTON NP Common Visit Codes: [id number] INP/OBS CARE(HIGH) MONSE SHELTON NP Sep 11, 2024 13:19
--- NOTE | 2024-09-11 16:34 | DVHPN2 ---
Subjective Knees, Jeff Hernandez is a 69 year year old male with past medical history of diabetes who presents to the ED for right foot pain. Patient reports that 2 weeks ago he had a callus on the plantar side, then on Sunday he noticed that there was some drainage of pus and it was an open wound. Patient stated that he had his clean the foot for him. He is here for an evaluation. Patient reports that he takes metformin for his diabetes and is compliant. He denies fever, chills, shortness of breath, chest pain, tingling, numbness, nausea, vomiting, diarrhea, and abdominal pain. Reviewed: Care Plan, H&P, Labs, Medications Changes from previous H/P or p: No Changes General: Per HPI Eyes: No Pain, No Vision change, No Conjunctivae inflammation, No Eyelid inflammation, No Other, No Redness ENT: No Ear pain, No Ear discharge, No Nose pain, No Nose discharge, No Nose congestion, No Mouth pain, No Mouth swelling, No Throat pain, No Throat swelling, No Other Cardiovascular: No Chest Pain, No Palpitations, No Orthopnea, No Paroxysmal Noc. Dyspnea, No Edema, No Lt Headedness, No Other Respiratory: No Cough, No Dry, No Shortness of breath, No SOB with excertion, No Wheezing, No Hemoptysis, No Pleuritic Pain, No Sputum, No Other Gastrointestinal: No Nausea, No Vomiting, No Abdominal Pain, No Diarrhea, No Constipation, No Melena, No Hematochezia, No Other Genitourinary: No Dysuria, No Frequency, No Incontinence, No Hematuria, No Retention, No Other Musculoskeletal: No other, No neck pain, No shoulder pain, No arm pain, No back pain, No hand pain, No leg pain; foot pain Skin: No Rash, No Lesions, No Jaundice, No Bruising; Other (erythema) Objective Vitals Vital Signs Date Time Temp Pulse Resp B/P (MAP) Pulse Ox O2 Delivery O2 Flow Rate FiO2 09/11/24 13:00 99.2 63 19 98/55 (69) 94 99.2 09/11/24 08:00 Room Air* 0 21 Intake/Output Intake and Output 09/11/24 07:00 Intake Total 850 ml Output Total 2200 ml Balance -1350 ml Intake Oral 450 ml IV Total 400 ml Output Urine Total 2200 ml Exam DERMATOLOGIC EXAM: - Skin is dry and cool to the touch dry bilaterally. - Nails 1-5 of the bilateral foot are thickened, discolored, dystrophic, and tender to palpate with subungual debris - Hair loss noted to bilateral feet Wound #1: Location: Right sub 3rd Measurements: Length 1 cm x width 2 cm x depth 1 cm. Wound margins: Hyperkeratotic. Wound base: Full thickness. General Appearance: Malodor Probes to Bone: No Purulent drainage: Yes Serous drainage: No Erythema: Periwound VASCULAR EXAM: - DP and PT pulses are palpable bilaterally. - SCRAP BALLER is brisk to all digits. - Feet are cool to touch compared to lower legs bilaterally. NEUROLOGIC EXAM: - Normal light touch sensation to the superficial peroneal, deep peroneal, sural, saphenous, and tibial nerve branches. - Protective sensation is diminished as tested with a 5.07 10g [place] bilaterally. MUSCULOSKELETAL EXAM: - No gross deformities - Muscle strength is 5/5 and active motion is pain-free and symmetrical bilaterally - No pain or crepitation with passive range of motion bilaterally to all major pedal joints General Appearance: Alert, Oriented X3, Cooperative, No acute distress HEENT: Atraumatic, PERRLA Lungs: Clear to auscultation, Normal air movement Cardiovascular: Normal S1, Normal S2 Abdomen: Normal bowel sounds, Soft, No tenderness, No hepatospenomegaly Musculoskeletal: Normal sensory function, Normal motor function Neuro: Normal gait, Normal speech Psych/Mental Status: Mental status NL, Mood NL Medications Current Medications Medications Dose Ordered Sig/Ruby Route Start Time Stop Time Status Last Admin Dose Admin Vancomycin HCl 0 ml @ 0 mls/hr UD IV 09/08/24 09:00 Sodium Chloride 1,000 ml @ 60 mls/hr [id number] IV 09/08/24 13:00 09/11/24 10:50 60 MLS/HR Acetaminophen/ Hydrocodone Bitart 1 tab Q4HP PRN PO 09/08/24 13:00 09/10/24 22:27 1 TAB Ondansetron HCl 4 mg Q4HP PRN IV 09/08/24 13:00 Docusate Sodium 100 mg BIDPRN PRN PO 09/08/24 13:00 Acetaminophen 650 mg Q6HP PRN PO 09/08/24 13:00 Morphine Sulfate 2 mg Q4HPRN PRN IV 09/08/24 13:00 Diagnostic Test (Pha) 1 strip ACHS 09/08/24 17:00 09/11/24 11:10 1 STRIP Insulin Human Regular HS SC 09/08/24 22:00 09/10/24 22:16 6 UNITS Insulin Human Regular AC SC 09/08/24 17:00 09/11/24 11:11 9 UNITS Dextrose 50 ml UD PRN IV 09/08/24 13:00 Piperacillin Sod/ Tazobactam Sod 100 ml @ 25 mls/hr Q8HR IV 09/08/24 14:00 09/11/24 14:09 25 MLS/HR Vancomycin HCl 250 ml @ 250 mls/hr Q12H IV 09/11/24 12:00 09/11/24 13:11 250 MLS/HR Insulin Glargine 15 units HS SC 09/11/24 22:00 Laboratory Results Laboratory Tests 09/11/24 05:15 Chemistry Test 09/11/24 05:15 Calcium Level 8.8 mg/dL (8.7-10.4) Urinalysis Test 09/08/24 09:21 Urine Color Light-yellow (Yellow) Urine Clarity Clear (Clear) Urine pH 6.5 (5.0-9.0) Urine Specific [place] 1.050 (1.001-1.035) Urine Protein Negative (Negative) Urine Ketones Trace (Negative) Urine Blood Negative /uL (Negative) Urine Nitrite Negative (Negative) Urine Bilirubin Negative (Negative) Urine Urobilinogen Normal mg/dL (Negative) Urine Leukocyte Esterase Negative /uL (Negative) Urine RBC 1 /hpf (0 - 3) Urine WBC <1 /hpf (0 - 3) Urine Squamous Epithelial Cells Few /hpf (<5) Urine Bacteria None seen /hpf (None Seen) Urine Mucus Few (None Seen) Urine Glucose 4+ mg/dL (Normal) H Microbiology Microbiology Date/Time Source Procedure Growth Status 09/10/24 16:11 Foot Right Gram Stain Pending Resulted 09/10/24 16:11 Foot Right Anaerobic Culture - Preliminary Resulted 09/10/24 16:11 Foot Right Aerobic Culture - Preliminary Resulted 09/08/24 09:14 Blood Blood Culture - Preliminary NO GROWTH AFTER 72 HOURS OF INCUBATION. Resulted Assessment/Plan Assessment/Plan ASSESSMENT: Patient is a 69-year-old male seen on the floor for 1 day s/p from a I&D PLAN: - The patients chart was reviewed, clinical findings were discussed with the patient, the etiologies of the conditions were discussed in detail, and a treatment plan was agreed to at this time, with both oral and written instructions provided. - discussed that surgery went well but he had significant amount of necrosis of the soft tissue - we will plan to take him back to the OR tomorrow - consider taking him back on Sunday for a repeat with a placement of dermal graft - patient will be NPO at midnight - we will take him to the OR tomorrow All questions were answered and concerns addressed to the patient's satisfaction. The patient was given the phone number to the clinic and was told how to make contact with the clinic should any concerns or questions arise. Patient understands that if any questions or concerns arise prior to the next appointment, we should be contacted immediately. FOLLOW-UP: We will continue to follow while inpatient Plan discussed with: Patient Problem List: (1) Sepsis (2) Peripheral arterial disease (3) Diabetes type 2 (4) Acute respiratory distress (5) Pneumonia due to Coronavirus disease 2018 Date of Service: Sep 11, 2024 Billing Provider: LIZET SHELDON DPM Common Visit Codes: [id number] INP/OBS CARE(MOD) LIZET SHELDON DPM Sep 11, 2024 16:34
--- NOTE | 2024-09-11 20:52 | DVHINCON2 ---
Date of service: Sep 11, 2024 Allergies: Coded Allergies: NO KNOWN ALLERGIES (Unverified , 10/09/20) Current Medications Current Medications Medications (Trade) Dose Ordered Sig/Ruby Route PRN Reason Start Time Stop Time Status Last Admin Vancomycin HCl 250 ml @ 250 mls/hr Q18H IV 09/11/24 12:00 09/11/24 12:13 DC Vancomycin HCl 250 ml @ 250 mls/hr Q12H IV 09/11/24 12:00 09/11/24 13:11 Insulin Glargine (Lantus) 15 units HS SC 09/11/24 22:00 Vital Signs Vital Signs Date Time Temp Pulse Resp B/P (MAP) Pulse Ox O2 Delivery O2 Flow Rate FiO2 09/11/24 20:00 73 16 Room Air* 0 21 09/11/24 16:39 98.4 117/56 (76) 93 98.4 Labs/Diagnostic Data Labs Test 09/11/24 16:31 09/11/24 11:18 09/11/24 05:15 09/09/24 03:20 Range/Units POC Glucose 243 H 70-106 mg/dl Vancomycin Level Trough 6.4 5-10 ug/mL White Blood Count 13.6 H 4.4-10.8 10^3/uL Red Blood Count 4.15 L 4.5-5.90 10^6/uL Hemoglobin 12.6 L 13.5-17.5 g/dL Hematocrit 36.7 L 41.0-53.0 % Mean Corpuscular Volume 88.4 80.0-100.0 fL Mean Corpuscular Hemoglobin 30.3 28.0-32.0 pg Mean Corpuscular Hemoglobin Concent 34.3 32.0-36.0 g/dL Red Cell Distribution Width 13.3 11.8-14.3 % Platelet Count 364 140-450 10^3/uL Mean Platelet Volume 8.5 6.9-10.8 fL Neutrophils (%) (Auto) 70.8 37.0-80.0 % Lymphocytes (%) (Auto) 17.4 10.0-50.0 % Monocytes (%) (Auto) 8.1 0.0-12.0 % Eosinophils (%) (Auto) 3.1 0.0-7.0 % Basophils (%) (Auto) 0.6 0.0-2.0 % Neutrophils # (Auto) 9.6 H 1.6-8.6 10 ^3/uL Lymphocytes # (Auto) 2.4 0.4-5.4 10 ^3/uL Monocytes # (Auto) 1.1 0-1.3 10 ^3/uL Eosinophils # (Auto) 0.4 0-0.8 10 ^3/uL Basophils # (Auto) 0.1 0-0.2 10 ^3/uL Nucleated Red Blood Cells 0.1 % Sodium Level 132 L 136-145 mmol/L Potassium Level 4.5 3.5-5.1 mmol/L Chloride Level 98 98-107 mmol/L Carbon Dioxide Level 30 20-31 mmol/L Anion Gap 4 L 5-15 Blood Urea Nitrogen 9 9-23 mg/dL Creatinine 0.89 0.700-1.30 mg/dL Glomerular Filtration Rate Calc 93 >90 mL/min BUN/Creatinine Ratio 10.1 10.0-20.0 Serum Glucose 204 H 74-106 mg/dL Calcium Level 8.8 8.7-10.4 mg/dL Total Bilirubin 0.5 0.2-1.0 mg/dL Aspartate Amino Transferase (AST) 17 13-40 U/L Alanine Aminotransferase (ALT) 18 7-40 U/L Alkaline Phosphatase 82 46-116 U/L Total Protein 6.6 5.7-8.2 g/dL Albumin 3.1 L 3.2-4.8 g/dL Triglycerides Level 89 < 150 mg/dL Cholesterol Level 93 < 200 mg/dL LDL Cholesterol 50 < 100 mg/dL HDL Cholesterol 28 L 40-59 mg/dL Test 09/08/24 13:20 09/08/24 09:21 09/08/24 09:14 Range/Units Lactic Acid Level 1.0 0.4-2.0 mmol/L Troponin I High Sensitivity < 3 L </=54 ng/L Urine Color Light-yellow Yellow Urine Clarity Clear Clear Urine pH 6.5 5.0-9.0 Urine Specific [place] 1.050 H 1.001-1.035 Urine Protein Negative Negative Urine Ketones Trace Negative Urine Blood Negative Negative /uL Urine Nitrite Negative Negative Urine Bilirubin Negative Negative Urine Urobilinogen Normal Negative mg/dL Urine Leukocyte Esterase Negative Negative /uL Urine RBC 1 0 - 3 /hpf Urine WBC <1 0 - 3 /hpf Urine Squamous Epithelial Cells Few <5 /hpf Urine Bacteria None seen None Seen /hpf Urine Mucus Few None Seen Urine Glucose 4+ H Normal mg/dL Erythrocyte Sedimentation Rate 75 H 0-20 mm/hr Prothrombin Time 11.1 9.3-11.8 sec Prothrombin Time INR 1.05 0.9-1.15 Activated Partial Thromboplast Time 25.9 24.5-34.5 SEC Hemoglobin A1c 11.8 H <5.7 % A1C C-Reactive Protein High Sensitivity 14.15 H <1.0 mg/dL Microbiology Date/Time Source Procedure Growth Status 09/10/24 16:11 Foot Right Gram Stain Pending Resulted 09/10/24 16:11 Foot Right Anaerobic Culture - Preliminary Resulted 09/10/24 16:11 Foot Right Aerobic Culture - Preliminary Resulted 09/08/24 09:14 Blood Blood Culture - Preliminary NO GROWTH AFTER 72 HOURS OF INCUBATION. Resulted Problems(with codes): (1) Gas gangrene (2) Osteomyelitis (3) Sepsis (4) Peripheral arterial disease (5) Diabetes type 2 (6) Acute respiratory distress (7) Pneumonia due to Coronavirus disease 2018 Plan/Recommendation ASSESSMENT AND PLAN: ID Problem List: - Diabetic foot ulcer - Osteomyelitis - Gas gangrene - Poorly controlled diabetes mellitus type 2 - Gas-forming bacterial infection Assessment This is a 69 y.o. male with a past medical history of diabetes mellitus type 2 managed with metformin, who presents with a right foot diabetic ulcer exhibiting signs of infection. The patient reports that the ulcer had been closed for a while but reopened two weeks ago on the plantar side of his heel with drainage and pus. He denies fevers, chills, diarrhea, or rash. Vital signs are stable with a temperature of 97.4F, pulse of 94 bpm, respiratory rate of 16 breaths per minute, blood pressure of 109/68 mmHg, and SpO2 of 97% on room air. Physical exam reveals the right foot is entirely erythematous with drainage on the right heel. Laboratory studies show leukocytosis with WBC 17.3, elevated CRP at 14.45, lactic acid 1.8, creatinine 1.1. Hemoglobin is 14.1, and platelets are 401. HbA1c is elevated at 11.8%, indicating poorly controlled diabetes. CT of the right lower extremity shows findings suspicious for osteomyelitis of the great toe proximal and distal phalanges, and extensive subcutaneous edema on the plantar forefoot about the first and second toes consistent with gas-forming bacterial infection plus gas gangrene. Superficial wound cultures are growing gram-negative rods, gram-positive rods, and viridans group B streptococci. Dr. Mensah performed a right foot debridement for gas gangrene with incision and drainage of an abscess at the level of the bone. Deep cultures were obtained during the procedure. Plan: - Continue vancomycin and Zosyn for broad-spectrum coverage pending culture results. - Aim to improve diabetic control with a goal of keeping blood sugars under 180 mg/dL to enhance wound healing; will coordinate with endocrinology for management. - Follow up on blood cultures and deep wound cultures to tailor antibiotic therapy appropriately. - Agree with Podiatry evaluation for any additional debridement as necessary. - Recommend close outpatient follow-up with primary care physician to manage diabetes and prevent future complications. Isolation Precautions: Standard Assessment and plan was discussed with the patient as written above Plan is subject to change pending incorporation of new incoming information/diagnostics. Updates may be added as addendum at the bottom (OR TOP) of this note Thank you for interesting consult. ID will continue to follow. Please contact Infectious Disease for any questions or concerns. Blanca Alonso M.D. [facility]: ? History: The patient's chart and medications were reviewed in detail and the patient was seen and examined. History obtained from: patient Mr. Jeff Smith is a 69 y.o. male with a past medical history of diabetes mellitus type 2, who presents with right foot pain due to a diabetic foot ulcer. The patient states that the ulcer had been closed for a while but reopened two weeks ago on the plantar side of his heel with drainage and pus coming out of the foot. He denies fevers, chills, diarrhea, or rash. Review of Systems: A complete 10 system review of systems was completed and negative except as noted in the HPI or here. ROS: - CONSTITUTIONAL: Denies weight loss, fever, and chills. - HEENT: Denies changes in vision and hearing. - RESPIRATORY: Denies shortness of breath and cough. - CV: Denies palpitations and chest pain. - GI: Denies abdominal pain, nausea, vomiting, and diarrhea. - : Denies dysuria and urinary frequency. - MSK: Denies myalgia and joint pain. - SKIN: Reports redness and drainage in right foot. - NEUROLOGICAL: Denies headache and syncope. - PSYCHIATRIC: Denies recent changes in mood, anxiety, and depression. Past Medical History: Diagnosis Date Diabetes mellitus type 2 Past Surgical History: History reviewed. No pertinent surgical history. Home Medications: Prior to Admission Medications Medication Sig metFORMIN (GLUCOPHAGE) 500 mg tablet Take 1 tablet by mouth twice daily. Allergies: No Known Allergies Family History: Problem Relation Diabetes Mother Diabetes Father Family Status Relation Name Status Mother (Not Specified) Father (Not Specified) No partnership data on file Social History: Socioeconomic History Marital status: Not on file Number of children: Not on file Years of education: Not on file Highest education level: Not on file Occupational History Not on file Tobacco Use Smoking status: Never Smokeless tobacco: Never Vaping Use Vaping status: Never Used Substance and Sexual Activity Alcohol use: Never Drug use: Never Sexual activity: Not Currently Other Topics Concern Not on file Social History Narrative Not on file Social Determinants of Health Financial Resource Strain: Not on file Food Insecurity: Not on file Transportation Needs: Not on file Physical Activity: Not on file Stress: Not on file Social Connections: Not on file Intimate Partner Violence: Not on file Objective: Vital Signs on Arrival: Temp: 36.3 C (97.4 F)?BP: 109/68?Pulse: 94?Resp: 16?SpO2: 97% on room air Most Recent Vital Signs: Temp: 36.5 C (97.7 F)?BP: 110/70?Pulse: 90?Resp: 16?SpO2: 97% on room air Admission Weight: Weight: Not available?BMI: Not available Physical Exam: General:?NAD Neck:?Supple. No masses. HEENT:?PERRL. Normal lids and conjunctiva. Moist mucous membranes. Oropharynx without lesions, exudates, or excessive erythema. Normal appearance of the external aspects of the nose and ears. Heart:?Regular rhythm, normal rate. No murmur. No lower extremity edema. Lungs:?Normal respiratory effort. Clear to auscultation bilaterally. No wheezes. No crackles. Abdomen:?Soft. Non-tender. Non-distended. No masses or abdominal hernia. Msk:?No digital cyanosis. Normal strength and tone in all 4 limbs. Skin:?Warm and dry, no rashes. Right foot is entirely erythematous with drainage on the right heel. Neuro:?Alert. No facial droop or slurred speech. Extra-ocular movements intact. Sensation intact to soft touch in all 4 limbs. Psych:?Appropriate mood. Full affect. Oriented to person, place, time, and situation. Lines: Active Lines Peripheral IV Line?Duration Peripheral IV Line?[Date/Time Placed]?[Location]?[Gauge]?<1 day Diagnostic Studies: Available diagnostic studies were reviewed personally. Significant relevant results and findings are outlined below or addressed in the Assessment and Plan above. Pertinent Imaging: CT Right Lower Extremity ?Impression IMPRESSION: 1. Findings suspicious for osteomyelitis of the great toe proximal and distal phalanges. 2. Extensive subcutaneous edema on the plantar forefoot about the first and second toes consistent with gas-forming bacterial infection plus gas gangrene. 3. No obvious fluid collection. Pertinent Labs: - WBC: 17.3 x10^3/mm^3 - Hemoglobin: 14.1 g/dL - Platelets: 401 x10^3/mm^3 - CRP: 14.45 mg/dL - Lactic Acid: 1.8 mmol/L - Creatinine: 1.1 mg/dL - HbA1c: 11.8% Microbiology: - Superficial wound cultures growing gram-negative rods, gram-positive rods, and viridans group B streptococci. - Deep wound cultures pending from intraoperative specimens. Plan discussed with: Patient BLANCA ALONSO MD Sep 11, 2024 20:52
[2024-09-11] MEDS: INSULIN LANTUS (GLARGINE) 1 /0.01ml (100units/ml) SC SCH (22:00)
[2024-09-12 05:00] VITALS: BP 130/67; PULSE 66; RESP 14; TEMP 98.6; O2SAT 93
[2024-09-12 06:55] LABS: Basophils # (auto) 0.1 10 ^3/uL (0-0.2); Basophils % (auto) 0.8 % (0.0-2.0); Eosinophils # (auto) 0.6 10 ^3/uL (0-0.8); Eosinophils % (auto) 4.9 % (0.0-7.0); Hematocrit 37.5 % (41.0-53.0); Hemoglobin 12.7 g/dL (13.5-17.5); Lymphocytes # (auto) 2.9 10 ^3/uL (0.4-5.4); Lymphocytes % (auto) 23.6 % (10.0-50.0); Mean Corpuscular Hemoglobin 30.2 pg (28.0-32.0); Mean Corpuscular Hgb Conc. 33.9 g/dL (32.0-36.0); Mean Corpuscular Volume 89.1 fL (80.0-100.0); Monocytes % (auto) 7.8 % (0.0-12.0); Neutrophils # (auto) 7.7 10 ^3/uL (1.6-8.6); Neutrophils % (auto) 62.9 % (37.0-80.0); Platelet Count (auto) 366 10^3/uL (140-450); Red Cell Distribution Width 13.3 % (11.8-14.3); White Blood Cell 12.2 10^3/uL (4.4-10.8)
[2024-09-12 09:00] VITALS: BP 120/63; PULSE 62; RESP 18; TEMP 98.3; O2SAT 95
[2024-09-12] MEDS: BUPIVACAINE 0.5% P/F INJ 10 ML VIAL ONE (11:43)
[2024-09-12] MEDS ORDERED: fentaNYL CITRATE 100 MCG/2 ML VL ONE (12:03)
--- NOTE | 2024-09-12 12:07 | DVHPN2 ---
Subjective Knees, Jeff Hernandez is a 69 year year old male with past medical history of diabetes who presents to the ED for right foot pain. Patient reports that 2 weeks ago he had a callus on the plantar side, then on Sunday he noticed that there was some drainage of pus and it was an open wound. Patient stated that he had his clean the foot for him. He is here for an evaluation. Patient reports that he takes metformin for his diabetes and is compliant. He denies fever, chills, shortness of breath, chest pain, tingling, numbness, nausea, vomiting, diarrhea, and abdominal pain. Reviewed: Care Plan, H&P, Labs, Medications Changes from previous H/P or p: No Changes General: Per HPI Eyes: No Pain, No Vision change, No Conjunctivae inflammation, No Eyelid inflammation, No Other, No Redness ENT: No Ear pain, No Ear discharge, No Nose pain, No Nose discharge, No Nose congestion, No Mouth pain, No Mouth swelling, No Throat pain, No Throat swelling, No Other Cardiovascular: No Chest Pain, No Palpitations, No Orthopnea, No Paroxysmal Noc. Dyspnea, No Edema, No Lt Headedness, No Other Respiratory: No Cough, No Dry, No Shortness of breath, No SOB with excertion, No Wheezing, No Hemoptysis, No Pleuritic Pain, No Sputum, No Other Gastrointestinal: No Nausea, No Vomiting, No Abdominal Pain, No Diarrhea, No Constipation, No Melena, No Hematochezia, No Other Genitourinary: No Dysuria, No Frequency, No Incontinence, No Hematuria, No Retention, No Other Musculoskeletal: No other, No neck pain, No shoulder pain, No arm pain, No back pain, No hand pain, No leg pain; foot pain Skin: No Rash, No Lesions, No Jaundice, No Bruising; Other (erythema) Objective Vitals Vital Signs Date Time Temp Pulse Resp B/P (MAP) Pulse Ox O2 Delivery O2 Flow Rate FiO2 09/12/24 09:00 98.3 62 18 120/63 (82) 95 98.3 09/12/24 08:00 Room Air* 0 21 Intake/Output Intake and Output 09/12/24 07:00 Intake Total 600 ml Output Total 1400 ml Balance -800 ml Intake Oral 600 ml Output Urine Total 1400 ml Exam DERMATOLOGIC EXAM: - Skin is dry and cool to the touch dry bilaterally. - Nails 1-5 of the bilateral foot are thickened, discolored, dystrophic, and tender to palpate with subungual debris - Hair loss noted to bilateral feet Wound #1: Location: Right sub 3rd Measurements: Length 1 cm x width 2 cm x depth 1 cm. Wound margins: Hyperkeratotic. Wound base: Full thickness. General Appearance: Malodor Probes to Bone: No Purulent drainage: Yes Serous drainage: No Erythema: Periwound VASCULAR EXAM: - DP and PT pulses are palpable bilaterally. - ACCESS SPEC is brisk to all digits. - Feet are cool to touch compared to lower legs bilaterally. NEUROLOGIC EXAM: - Normal light touch sensation to the superficial peroneal, deep peroneal, sural, saphenous, and tibial nerve branches. - Protective sensation is diminished as tested with a 5.07 10g Davenport-Larry bilaterally. MUSCULOSKELETAL EXAM: - No gross deformities - Muscle strength is 5/5 and active motion is pain-free and symmetrical bilaterally - No pain or crepitation with passive range of motion bilaterally to all major pedal joints General Appearance: Alert, Oriented X3, Cooperative, No acute distress HEENT: Atraumatic, PERRLA Lungs: Clear to auscultation, Normal air movement Cardiovascular: Normal S1, Normal S2 Abdomen: Normal bowel sounds, Soft, No tenderness, No hepatospenomegaly Musculoskeletal: Normal sensory function, Normal motor function Neuro: Normal gait, Normal speech Psych/Mental Status: Mental status NL, Mood NL Medications Current Medications Medications Dose Ordered Sig/Ruby Route Start Time Stop Time Status Last Admin Dose Admin Vancomycin HCl 0 ml @ 0 mls/hr UD IV 09/08/24 09:00 Sodium Chloride 1,000 ml @ 60 mls/hr [id number] IV 09/08/24 13:00 09/12/24 00:20 60 MLS/HR Acetaminophen/ Hydrocodone Bitart 1 tab Q4HP PRN PO 09/08/24 13:00 09/10/24 22:27 1 TAB Ondansetron HCl 4 mg Q4HP PRN IV 09/08/24 13:00 Docusate Sodium 100 mg BIDPRN PRN PO 09/08/24 13:00 Acetaminophen 650 mg Q6HP PRN PO 09/08/24 13:00 Morphine Sulfate 2 mg Q4HPRN PRN IV 09/08/24 13:00 Diagnostic Test (Pha) 1 strip ACHS 09/08/24 17:00 09/12/24 06:09 1 STRIP Insulin Human Regular HS SC 09/08/24 22:00 09/11/24 22:00 6 UNITS Insulin Human Regular AC SC 09/08/24 17:00 09/12/24 06:09 2 UNITS Dextrose 50 ml UD PRN IV 09/08/24 13:00 Piperacillin Sod/ Tazobactam Sod 100 ml @ 25 mls/hr Q8HR IV 09/08/24 14:00 09/12/24 05:14 25 MLS/HR Vancomycin HCl 250 ml @ 250 mls/hr Q12H IV 09/11/24 12:00 09/12/24 00:00 250 MLS/HR Insulin Glargine 15 units HS SC 09/11/24 22:00 09/11/24 22:00 15 UNITS Laboratory Results Laboratory Tests 09/11/24 05:15 09/12/24 04:57 Urinalysis Test 09/08/24 09:21 Urine Color Light-yellow (Yellow) Urine Clarity Clear (Clear) Urine pH 6.5 (5.0-9.0) Urine Specific [place] 1.050 (1.001-1.035) Urine Protein Negative (Negative) Urine Ketones Trace (Negative) Urine Blood Negative /uL (Negative) Urine Nitrite Negative (Negative) Urine Bilirubin Negative (Negative) Urine Urobilinogen Normal mg/dL (Negative) Urine Leukocyte Esterase Negative /uL (Negative) Urine RBC 1 /hpf (0 - 3) Urine WBC <1 /hpf (0 - 3) Urine Squamous Epithelial Cells Few /hpf (<5) Urine Bacteria None seen /hpf (None Seen) Urine Mucus Few (None Seen) Urine Glucose 4+ mg/dL (Normal) H Microbiology Microbiology Date/Time Source Procedure Growth Status 09/10/24 16:11 Foot Right Gram Stain Pending Resulted 09/10/24 16:11 Foot Right Anaerobic Culture - Preliminary Resulted 09/10/24 16:11 Foot Right Aerobic Culture - Preliminary Resulted 09/08/24 09:14 Blood Blood Culture - Preliminary NO GROWTH AFTER 72 HOURS OF INCUBATION. Resulted Assessment/Plan Assessment/Plan ASSESSMENT: Patient is a 69-year-old male seen on the floor for 2 day s/p from a I&D PLAN: - The patients chart was reviewed, clinical findings were discussed with the patient, the etiologies of the conditions were discussed in detail, and a treatment plan was agreed to at this time, with both oral and written instructions provided. - discussed that surgery went well but he had significant amount of necrosis of the soft tissue - we will plan to take him back to the OR tomorrow - consider taking him back on Sunday for a repeat with a placement of dermal graft - patient has been NPO since midnight - we will take him to the OR today All questions were answered and concerns addressed to the patient's satisfaction. The patient was given the phone number to the clinic and was told how to make contact with the clinic should any concerns or questions arise. Patient understands that if any questions or concerns arise prior to the next appointment, we should be contacted immediately. FOLLOW-UP: We will continue to follow while inpatient Plan discussed with: Patient My Orders Orders - LIZET SHELDON DPM Procedure Category Date Status Time Npo After Midnight DIET 09/11/24 Transmitted Dinner Obtain Consent For: ORDERS 09/11/24 Transmitted 16:34 Problem List: (1) Sepsis (2) Peripheral arterial disease (3) Diabetes type 2 (4) Acute respiratory distress (5) Pneumonia due to Coronavirus disease 2018 Date of Service: Sep 12, 2024 Billing Provider: LIZET SHELDON DPM Common Visit Codes: [id number] INP/OBS CARE(MOD) LIZET SHELDON DPM Sep 12, 2024 12:07
[2024-09-12] MEDS ORDERED: ePHEDrine SULFATE 50 MG/ML AMP ONE (12:44)
[2024-09-12 12:52] VITALS: PULSE 67; RESP 16; O2SAT 99
--- NOTE | 2024-09-12 13:06 | DVHOP2 ---
Operative Report - 2 Report Details Date: 09/12/24 Preop Diagnosis: 1. Right foot gas gangrene 2. Right foot abscess 3. Right foot diabetic ulcer Postop Diagnosis: Same as preop Surgeon: Lizet Sheldon MD Anesthesiologist: See anesthesia Anesthesia: Mac Consent: The patient was informed of the risks and benefits of the procedure. These include but are not limited to complications of anesthesia, postoperative infection, incomplete relief of symptoms, recurrence of symptoms, damage to blood vessels, nerves and tendons, deep venous thrombosis, pulmonary embolism and possible need for repeat surgery in the future. Complications: None Estimated Blood Loss: Minimal Fluids: See anesthesia Findings: Consistent with diagnosis Indications for Surgery: Worsening right foot wound Name of Procedure Performed 1. Right foot I&D to bone ([id number]) Procedure Details Procedure Details: PRE-PROCEDURE INFORMATION: In the pre-op holding area, the extremity to be operated on was clearly marked and the patient verified correct laterality of the marking. The patient was transferred to the OR table and placed in a supine position. A timeout was performed in which identification of the correct patient, procedure, location, and materials was done. The right foot and leg were prepped and draped in normal sterile fashion. The foot and leg were exsanguinated and the thigh tourniquet was inflated to 250 mmHg. DESCRIPTION OF PROCEDURE: Attention was directed to the right foot where area of fluctuance and previous incision was made was noted. An incision was made over this area and was deepened through blunt dissection. The incision was deepened to the level of abscess and bone. Care was taken to the dissection to avoid any neurovascular and tendinous structures. The incision was deepened to the bone, and the abscess appeared to be purulent fluid consistent with pus. After the abscess was drained, the area was irrigated with 3 L normal saline using cysto tubing. The area was then inspected and any areas of tracking, especially along the tendons were also drained. The wound was packed with Betadine-soaked gauze and we will need to be closed at a later date. A dry sterile dressing was placed on the surgical extremity. The patient was placed in a postop shoe. POSTOPERATIVE INFORMATION: The patient tolerated the above noted procedure and anesthesia well and was transferred to the PACU with vital signs stable, and vascular status intact with capillary refill intact to all digits. Patient will return to the OR on Sunday for subsequent debridement as well as application of dermal graft. Patient will be able to be discharged after, recommend 6 weeks IV antibiotics. Condition Good Disposition Still a Patient LIZET SHELDON DPM Sep 12, 2024 13:06
[2024-09-12] MEDS ORDERED: ACETAMINOPHEN IV 1000 MG/100ML (10MG/ML) IV PRN (13:15)
[2024-09-12] MEDS ORDERED: MEPERIDINE HCL (25 MG/ML) 1ML VIAL IV PRN (13:15)
[2024-09-12] MEDS ORDERED: HYDROmorphone HCL 2 MG/ML VL/or syr IV PRN (13:15)
[2024-09-12] MEDS: ONDANSETRON HCL 4 MG/2 ML VIAL IV ONE (13:29)
--- NOTE | 2024-09-12 13:37 | DVHPN2 ---
Subjective Denies any new symptoms. Reviewed: Care Plan, H&P, Labs, Medications Changes from previous H/P or p: No Changes General: Per HPI Eyes: No Pain, No Vision change, No Conjunctivae inflammation, No Eyelid inflammation, No Other, No Redness ENT: No Ear pain, No Ear discharge, No Nose pain, No Nose discharge, No Nose congestion, No Mouth pain, No Mouth swelling, No Throat pain, No Throat swelling, No Other Cardiovascular: No Chest Pain, No Palpitations, No Orthopnea, No Paroxysmal Noc. Dyspnea, No Edema, No Lt Headedness, No Other Respiratory: No Cough, No Dry, No Shortness of breath, No SOB with excertion, No Wheezing, No Hemoptysis, No Pleuritic Pain, No Sputum, No Other Gastrointestinal: No Nausea, No Vomiting, No Abdominal Pain, No Diarrhea, No Constipation, No Melena, No Hematochezia, No Other Genitourinary: No Dysuria, No Frequency, No Incontinence, No Hematuria, No Retention, No Other Musculoskeletal: No other, No neck pain, No shoulder pain, No arm pain, No back pain, No hand pain, No leg pain; foot pain Skin: No Rash, No Lesions, No Jaundice, No Bruising; Other (erythema) Objective Vitals Vital Signs Date Time Temp Pulse Resp B/P (MAP) Pulse Ox O2 Delivery O2 Flow Rate FiO2 09/12/24 09:00 98.3 62 18 120/63 (82) 95 98.3 09/12/24 08:00 Room Air* 0 21 Intake/Output Intake and Output 09/12/24 07:00 Intake Total 600 ml Output Total 1400 ml Balance -800 ml Intake Oral 600 ml Output Urine Total 1400 ml General Appearance: Alert, Oriented X3, Cooperative, No acute distress HEENT: Atraumatic, PERRLA Lungs: Clear to auscultation, Normal air movement Cardiovascular: Normal S1, Normal S2 Abdomen: Normal bowel sounds, Soft, No tenderness, No hepatospenomegaly Musculoskeletal: Normal sensory function, Normal motor function Neuro: Normal gait, Normal speech Psych/Mental Status: Mental status NL, Mood NL Medications Current Medications Medications Dose Ordered Sig/Ruby Route Start Time Stop Time Status Last Admin Dose Admin Vancomycin HCl 0 ml @ 0 mls/hr UD IV 09/08/24 09:00 Sodium Chloride 1,000 ml @ 60 mls/hr [id number] IV 09/08/24 13:00 09/12/24 00:20 60 MLS/HR Acetaminophen/ Hydrocodone Bitart 1 tab Q4HP PRN PO 09/08/24 13:00 09/10/24 22:27 1 TAB Ondansetron HCl 4 mg Q4HP PRN IV 09/08/24 13:00 Docusate Sodium 100 mg BIDPRN PRN PO 09/08/24 13:00 Acetaminophen 650 mg Q6HP PRN PO 09/08/24 13:00 Morphine Sulfate 2 mg Q4HPRN PRN IV 09/08/24 13:00 Diagnostic Test (Pha) 1 strip ACHS 09/08/24 17:00 09/12/24 12:57 1 STRIP Insulin Human Regular HS SC 09/08/24 22:00 09/11/24 22:00 6 UNITS Insulin Human Regular AC SC 09/08/24 17:00 09/12/24 06:09 2 UNITS Dextrose 50 ml UD PRN IV 09/08/24 13:00 Piperacillin Sod/ Tazobactam Sod 100 ml @ 25 mls/hr Q8HR IV 09/08/24 14:00 09/12/24 05:14 25 MLS/HR Vancomycin HCl 250 ml @ 250 mls/hr Q12H IV 09/11/24 12:00 09/12/24 00:00 250 MLS/HR Insulin Glargine 15 units HS SC 09/11/24 22:00 09/11/24 22:00 15 UNITS Hydromorphone HCl 0.5 mg Q10M PRN IV 09/12/24 13:15 09/12/24 13:56 Meperidine HCl 25 mg Q10M PRN IV 09/12/24 13:15 09/12/24 13:46 Laboratory Results Laboratory Tests 09/11/24 05:15 09/12/24 04:57 Urinalysis Test 09/08/24 09:21 Urine Color Light-yellow (Yellow) Urine Clarity Clear (Clear) Urine pH 6.5 (5.0-9.0) Urine Specific [place] 1.050 (1.001-1.035) Urine Protein Negative (Negative) Urine Ketones Trace (Negative) Urine Blood Negative /uL (Negative) Urine Nitrite Negative (Negative) Urine Bilirubin Negative (Negative) Urine Urobilinogen Normal mg/dL (Negative) Urine Leukocyte Esterase Negative /uL (Negative) Urine RBC 1 /hpf (0 - 3) Urine WBC <1 /hpf (0 - 3) Urine Squamous Epithelial Cells Few /hpf (<5) Urine Bacteria None seen /hpf (None Seen) Urine Mucus Few (None Seen) Urine Glucose 4+ mg/dL (Normal) H Microbiology Microbiology Date/Time Source Procedure Growth Status 09/10/24 16:11 Foot Right Gram Stain Pending Resulted 09/10/24 16:11 Foot Right Anaerobic Culture - Preliminary Resulted 09/10/24 16:11 Foot Right Aerobic Culture - Preliminary Resulted 09/08/24 09:14 Blood Blood Culture - Preliminary NO GROWTH AFTER 72 HOURS OF INCUBATION. Resulted Labs and/or images reviewed: Labs reviewed by me, Image(s) reviewed by me Assessment/Plan Assessment/Plan Impression: -right foot osteomyelitis -diabetes mellitus, uncontrolled with hemoglobin A1c 11.8 -rule out peripheral arterial disease -peripheral neuropathy Plan: -events: Patient operative report reviewed today. Noted persistent pus to wound. Plans for repeat debridement on Sunday. Continue antibiotic therapy at this time. Infectious Disease to a monitor culture and sensitivity with antibiotic changes. -podiatry consultation -regular insulin sliding scale , add Lantus 15 units q.h.s. -wound and blood culture : Pending -wound care per podiatry/wound care nurse -antibiotic therapy per Infectious Disease. Continue Zosyn and vancomycin at this time. -repeat labs in a.m. Total time spent with patient discussing and formulating plan of care: 35 minutes. This medical document was created using an electronic medical record system with [employer] dictation system. Although this document has been carefully reviewed, there may still be some phonetic and typographical errors. These areas are purely typographical due to imperfections of the software programs, and do not reflect any compromise in the patient's medical care. Plan discussed with: Patient, Other (RN) Date of Service: Sep 12, 2024 Billing Provider: MONSE SHELTON NP Common Visit Codes: [id number] INP/OBS CARE(HIGH) MONSE SHELTON NP Sep 12, 2024 13:37
[2024-09-12 17:00] VITALS: BP 145/57; PULSE 65; RESP 20; TEMP 97.4; O2SAT 96
[2024-09-12 20:00] VITALS: PULSE 78; RESP 16
[2024-09-12 20:45] VITALS: BP 108/63; PULSE 73; RESP 16; TEMP 98; O2SAT 95
--- NOTE | 2024-09-12 22:43 | DVHPN2 ---
Consult Progress Note Date Seen: Sep 12, 2024 Subjective Patient reports: Other (underwent debridement today , is a little lethargic affter his surgery . His foot is packed with gauze , the redness and swelling of right foot is going down) Objective vital signs Vital Sign Date Time Temp Pulse Resp B/P (MAP) Pulse Ox O2 Delivery O2 Flow Rate FiO2 09/12/24 20:45 98.0 73 16 108/63 (78) 95 98.0 09/12/24 12:52 Mask 6.0 99 Total Intake and Output 09/11/24 09/11/24 09/12/24 15:00 23:00 07:00 Intake Total 600 ml 0 ml Output Total 400 ml 1000 ml Balance 200 ml -1000 ml medications Current Medications Medications Dose Ordered Sig/Ruby Route Start Time Stop Time Status Last Admin Dose Admin Vancomycin HCl 0 ml @ 0 mls/hr UD IV 09/08/24 09:00 Sodium Chloride 1,000 ml @ 60 mls/hr [id number] IV 09/08/24 13:00 09/12/24 16:30 60 MLS/HR Acetaminophen/ Hydrocodone Bitart 1 tab Q4HP PRN PO 09/08/24 13:00 09/12/24 16:30 1 TAB Ondansetron HCl 4 mg Q4HP PRN IV 09/08/24 13:00 Docusate Sodium 100 mg BIDPRN PRN PO 09/08/24 13:00 Acetaminophen 650 mg Q6HP PRN PO 09/08/24 13:00 Morphine Sulfate 2 mg Q4HPRN PRN IV 09/08/24 13:00 Diagnostic Test (Pha) 1 strip ACHS 09/08/24 17:00 09/12/24 21:16 1 STRIP Insulin Human Regular HS SC 09/08/24 22:00 09/12/24 21:38 6 UNITS Insulin Human Regular AC SC 09/08/24 17:00 09/12/24 16:36 9 UNITS Dextrose 50 ml UD PRN IV 09/08/24 13:00 Piperacillin Sod/ Tazobactam Sod 100 ml @ 25 mls/hr Q8HR IV 09/08/24 14:00 09/12/24 21:12 25 MLS/HR Vancomycin HCl 250 ml @ 250 mls/hr Q12H IV 09/11/24 12:00 09/12/24 13:39 250 MLS/HR Insulin Glargine 15 units HS SC 09/11/24 22:00 09/12/24 21:37 15 UNITS laboratory and microbiology Laboratory Tests 09/12/24 04:57 09/11/24 05:15 Test 09/11/24 05:15 Range/Units Serum Glucose 204 H 74-106 mg/dL Problem List/Assessment/Plan Problems(with codes): (1) Osteomyelitis (2) Gas gangrene (3) Pneumonia due to Coronavirus disease 2019 (4) Acute respiratory distress (5) Diabetes type 2 (6) Peripheral arterial disease (7) Sepsis Problem List/Assessment/Plan ID Problem List: - Diabetic foot ulcer - Osteomyelitis - Gas gangrene - Poorly controlled diabetes mellitus type 2 - Gas-forming bacterial infection Assessment This is a 69 y.o. male with a past medical history of diabetes mellitus type 2 managed with metformin, who presents with a right foot diabetic ulcer exhibiting signs of infection. The patient reports that the ulcer had been closed for a while but reopened two weeks ago on the plantar side of his heel with drainage and pus. He denies fevers, chills, diarrhea, or rash. Vital signs are stable with a temperature of 97.4F, pulse of 94 bpm, respiratory rate of 16 breaths per minute, blood pressure of 109/68 mmHg, and SpO2 of 97% on room air. Physical exam reveals the right foot is entirely erythematous with drainage on the right heel. Laboratory studies show leukocytosis with WBC 17.3, elevated CRP at 14.45, lactic acid 1.8, creatinine 1.1. Hemoglobin is 14.1, and platelets are 401. HbA1c is elevated at 11.8%, indicating poorly controlled diabetes. CT of the right lower extremity shows findings suspicious for osteomyelitis of the great toe proximal and distal phalanges, and extensive subcutaneous edema on the plantar forefoot about the first and second toes consistent with gas-forming bacterial infection plus gas gangrene. Superficial wound cultures are growing gram-negative rods, gram-positive rods, and viridans group B streptococci. Dr. Mensah performed a right foot debridement for gas gangrene with incision and drainage of an abscess at the level of the bone. Deep cultures were obtained during the procedure. 09/12: white count is down to 12.2 . His superficial wound cultures is growing klebsiella oxytosa that is chinchilla sensitive and during surgery today patient underwent debridement again to the bone and wound was kept open Plan: - podiatry plans to Close the wound with dermal graft application on Sunday - recommend piccline placement for planning 6 weeks of IV antibiotic therapy determined by operative culture results - follow up on operative cultures - Continue vancomycin and Zosyn for broad-spectrum coverage pending culture results. - Aim to improve diabetic control with a goal of keeping blood sugars under 180 mg/dL to enhance wound healing; will coordinate with endocrinology for management. - Follow up on blood cultures and deep wound cultures to tailor antibiotic therapy appropriately. - Agree with Podiatry evaluation for any additional debridement as necessary. - Recommend close outpatient follow-up with primary care physician to manage diabetes and prevent future complications. Plan discussed with: Other Dietary Evaluation Review Comments: 1) Advance pt diet when medically feasible [facility] 2) Continue current plan of care Expected Outcomes/Goals: F/U in 3-5 days BLANCA SCHWARTZ MD Sep 12, 2024 22:43
[2024-09-13 04:45] VITALS: BP 143/65; PULSE 61; RESP 14; TEMP 98.1; O2SAT 95
[2024-09-13 06:57] LABS: Basophils # (auto) 0.1 10 ^3/uL (0-0.2); Basophils % (auto) 0.7 % (0.0-2.0); Eosinophils # (auto) 0.7 10 ^3/uL (0-0.8); Eosinophils % (auto) 6.1 % (0.0-7.0); Hematocrit 36.3 % (41.0-53.0); Hemoglobin 11.9 g/dL (13.5-17.5); Lymphocytes # (auto) 2.8 10 ^3/uL (0.4-5.4); Lymphocytes % (auto) 23.5 % (10.0-50.0); Mean Corpuscular Hgb Conc. 32.8 g/dL (32.0-36.0); Mean Corpuscular Volume 91.5 fL (80.0-100.0); Monocytes # (auto) 1.1 10 ^3/uL (0-1.3); Monocytes % (auto) 8.9 % (0.0-12.0); Neutrophils # (auto) 7.3 10 ^3/uL (1.6-8.6); Neutrophils % (auto) 60.8 % (37.0-80.0); Nucleated Red Blood Cells % 0.1 %; Platelet Count (auto) 368 10^3/uL (140-450); Red Blood Cells 3.97 10^6/uL (4.5-5.90); Red Cell Distribution Width 13.7 % (11.8-14.3); White Blood Cell 12.1 10^3/uL (4.4-10.8)
[2024-09-13 07:07] LABS: Anion Gap 5 (5-15); Carbon Dioxide 28 mmol/L (20-31); Chloride 99 mmol/L (98-107)
[2024-09-13 07:13] LABS: BUN/Creatinine Ratio 9.5 (10.0-20.0); Blood Urea Nitrogen 9 mg/dL (9-23)
[2024-09-13 07:15] LABS: Glucose 196 mg/dL (74-106); Sodium 132 mmol/L (136-145)
[2024-09-13 08:57] VITALS: BP 129/68; PULSE 60; RESP 17; TEMP 98.7; O2SAT 97
--- NOTE | 2024-09-13 11:34 | DVHPN2 ---
Subjective no complaints/ Reviewed: Care Plan, H&P, Labs, Medications Changes from previous H/P or p: No Changes General: Per HPI Eyes: No Pain, No Vision change, No Conjunctivae inflammation, No Eyelid inflammation, No Other, No Redness ENT: No Ear pain, No Ear discharge, No Nose pain, No Nose discharge, No Nose congestion, No Mouth pain, No Mouth swelling, No Throat pain, No Throat swelling, No Other Cardiovascular: No Chest Pain, No Palpitations, No Orthopnea, No Paroxysmal Noc. Dyspnea, No Edema, No Lt Headedness, No Other Respiratory: No Cough, No Dry, No Shortness of breath, No SOB with excertion, No Wheezing, No Hemoptysis, No Pleuritic Pain, No Sputum, No Other Gastrointestinal: No Nausea, No Vomiting, No Abdominal Pain, No Diarrhea, No Constipation, No Melena, No Hematochezia, No Other Genitourinary: No Dysuria, No Frequency, No Incontinence, No Hematuria, No Retention, No Other Musculoskeletal: No other, No neck pain, No shoulder pain, No arm pain, No back pain, No hand pain, No leg pain; foot pain Skin: No Rash, No Lesions, No Jaundice, No Bruising; Other (erythema) Objective Vitals Vital Signs Date Time Temp Pulse Resp B/P (MAP) Pulse Ox O2 Delivery O2 Flow Rate FiO2 09/13/24 08:57 98.7 60 17 129/68 (88) 97 98.7 09/13/24 08:00 Room Air* 0 21 Intake/Output Intake and Output 09/13/24 07:00 Intake Total 300 ml Output Total 1175 ml Balance -875 ml Intake Oral 250 ml IV Total 50 ml Output Urine Total 1175 ml General Appearance: Alert, Oriented X3, Cooperative, No acute distress HEENT: Atraumatic, PERRLA Lungs: Clear to auscultation, Normal air movement Cardiovascular: Normal S1, Normal S2 Abdomen: Normal bowel sounds, Soft, No tenderness, No hepatospenomegaly Musculoskeletal: Normal sensory function, Normal motor function Extremities: Other (rt le dressing in place) Neuro: Normal gait, Normal speech Psych/Mental Status: Mental status NL, Mood NL Medications Current Medications Medications Dose Ordered Sig/Ruby Route Start Time Stop Time Status Last Admin Dose Admin Vancomycin HCl 0 ml @ 0 mls/hr UD IV 09/08/24 09:00 Sodium Chloride 1,000 ml @ 60 mls/hr [id number] IV 09/08/24 13:00 09/13/24 10:15 60 MLS/HR Acetaminophen/ Hydrocodone Bitart 1 tab Q4HP PRN PO 09/08/24 13:00 09/12/24 16:30 1 TAB Ondansetron HCl 4 mg Q4HP PRN IV 09/08/24 13:00 Docusate Sodium 100 mg BIDPRN PRN PO 09/08/24 13:00 Acetaminophen 650 mg Q6HP PRN PO 09/08/24 13:00 Morphine Sulfate 2 mg Q4HPRN PRN IV 09/08/24 13:00 Diagnostic Test (Pha) 1 strip ACHS 09/08/24 17:00 09/13/24 06:15 1 STRIP Insulin Human Regular HS SC 09/08/24 22:00 09/12/24 21:38 6 UNITS Insulin Human Regular AC SC 09/08/24 17:00 09/13/24 06:18 6 UNITS Dextrose 50 ml UD PRN IV 09/08/24 13:00 Piperacillin Sod/ Tazobactam Sod 100 ml @ 25 mls/hr Q8HR IV 09/08/24 14:00 09/13/24 06:15 25 MLS/HR Vancomycin HCl 250 ml @ 250 mls/hr Q12H IV 09/11/24 12:00 09/12/24 23:45 250 MLS/HR Insulin Glargine 15 units HS SC 09/11/24 22:00 09/12/24 21:37 15 UNITS Laboratory Results Laboratory Tests 09/13/24 05:20 Chemistry Test 09/13/24 05:20 Calcium Level 9.0 mg/dL (8.7-10.4) Urinalysis Test 09/08/24 09:21 Urine Color Light-yellow (Yellow) Urine Clarity Clear (Clear) Urine pH 6.5 (5.0-9.0) Urine Specific [place] 1.050 (1.001-1.035) Urine Protein Negative (Negative) Urine Ketones Trace (Negative) Urine Blood Negative /uL (Negative) Urine Nitrite Negative (Negative) Urine Bilirubin Negative (Negative) Urine Urobilinogen Normal mg/dL (Negative) Urine Leukocyte Esterase Negative /uL (Negative) Urine RBC 1 /hpf (0 - 3) Urine WBC <1 /hpf (0 - 3) Urine Squamous Epithelial Cells Few /hpf (<5) Urine Bacteria None seen /hpf (None Seen) Urine Mucus Few (None Seen) Urine Glucose 4+ mg/dL (Normal) H Microbiology Microbiology Date/Time Source Procedure Growth Status 09/10/24 16:11 Foot Right Gram Stain - Final Resulted 09/10/24 16:11 Foot Right Anaerobic Culture - Preliminary Resulted 09/10/24 16:11 Foot Right Aerobic Culture - Preliminary Resulted 09/08/24 09:14 Blood Blood Culture - Final NO GROWTH AFTER 5 DAYS OF INCUBATION. Complete Labs and/or images reviewed: Labs reviewed by me, Image(s) reviewed by me Assessment/Plan Assessment/Plan osteomyelitis/gas gangrene rt foof- s/p i and d- on iv antibiotics/followed by id and podiatry dm adjust insulin passive rom exercise at bedside- explained and encouraged to avoid dvt Plan discussed with: Patient, Other Date of Service: Sep 13, 2024 Billing Provider: JULIA SCHWARTZ MD Common Visit Codes: [id number] INP/OBS CARE(MOD) JULIA SCHWARTZ MD Sep 13, 2024 11:34
[2024-09-13 12:03] LABS: INR 1.09 (0.9-1.15); Partial Thromboplastin Time 26.2 SEC (24.5-34.5); Prothrombin Time 11.5 sec (9.3-11.8)
[2024-09-13 12:45] VITALS: BP 122/63; PULSE 65; RESP 18; TEMP 97.7; O2SAT 95
[2024-09-13] MEDS: LIDOCAINE 1% (LOCAL ANESTH.) PF 5ml SDV ID ONE (15:45)
[2024-09-13 17:23] VITALS: BP 130/64; PULSE 65; RESP 18; TEMP 98.8; O2SAT 94
[2024-09-13 20:00] VITALS: PULSE 77; RESP 18
[2024-09-13 21:00] VITALS: BP 108/62; PULSE 63; RESP 17; TEMP 98.1; O2SAT 95
[2024-09-13] MEDS: SODIUM CHLOR 0.9% PF (SALINE LOCK) 10ML VIAL/SYR IV SCH (21:40)
[2024-09-13] MEDS: INSULIN LANTUS (GLARGINE) 1 /0.01ml (100units/ml) SC SCH (22:06)
--- NOTE | 2024-09-13 23:07 | DVHPN2 ---
Consult Progress Note Date Seen: Sep 13, 2024 Subjective Patient reports: Other (having some pain on wound, unable to see wound as covered in bandage with some blood drainage , no signs of CRAp . its palpable through bandage and patient is tolerating antibiotics ) Objective vital signs Vital Sign Date Time Temp Pulse Resp B/P (MAP) Pulse Ox O2 Delivery O2 Flow Rate FiO2 09/13/24 20:00 77 18 Room Air* 0 21 09/13/24 17:23 98.8 130/64 (86) 94 98.8 Total Intake and Output 09/12/24 09/12/24 09/13/24 15:00 23:00 07:00 Intake Total 50 ml 100 ml 150 ml Output Total 250 ml 925 ml Balance 50 ml -150 ml -775 ml medications Current Medications Medications Dose Ordered Sig/Ruby Route Start Time Stop Time Status Last Admin Dose Admin Vancomycin HCl 0 ml @ 0 mls/hr UD IV 09/08/24 09:00 Acetaminophen/ Hydrocodone Bitart 1 tab Q4HP PRN PO 09/08/24 13:00 09/12/24 16:30 1 TAB Docusate Sodium 100 mg BIDPRN PRN PO 09/08/24 13:00 Acetaminophen 650 mg Q6HP PRN PO 09/08/24 13:00 Diagnostic Test (Pha) 1 strip ACHS 09/08/24 17:00 09/13/24 21:41 1 STRIP Insulin Human Regular HS SC 09/08/24 22:00 09/13/24 22:06 8 UNITS Insulin Human Regular AC SC 09/08/24 17:00 09/13/24 18:02 3 UNITS Dextrose 50 ml UD PRN IV 09/08/24 13:00 Piperacillin Sod/ Tazobactam Sod 100 ml @ 25 mls/hr Q8HR IV 09/08/24 14:00 09/13/24 21:40 25 MLS/HR Vancomycin HCl 250 ml @ 250 mls/hr Q12H IV 09/11/24 12:00 09/13/24 14:14 250 MLS/HR Insulin Glargine 18 units HS SC 09/13/24 22:00 09/13/24 22:06 18 UNITS Sodium Chloride 10 ml QSHIFT@10,22 IV 09/13/24 22:00 09/13/24 21:40 10 ML laboratory and microbiology Laboratory Tests 09/13/24 05:20 Test 09/13/24 05:20 Range/Units Serum Glucose 196 H 74-106 mg/dL Problem List/Assessment/Plan Problems(with codes): (1) Sepsis (2) Peripheral arterial disease (3) Diabetes type 2 (4) Acute respiratory distress (5) Pneumonia due to Coronavirus disease 2019 (6) Gas gangrene (7) Osteomyelitis Problem List/Assessment/Plan ID Problem List: - Diabetic foot ulcer - Osteomyelitis - Gas gangrene - Poorly controlled diabetes mellitus type 2 - Gas-forming bacterial infection Assessment This is a 69 y.o. male with a past medical history of diabetes mellitus type 2 managed with metformin, who presents with a right foot diabetic ulcer exhibiting signs of infection. The patient reports that the ulcer had been closed for a while but reopened two weeks ago on the plantar side of his heel with drainage and pus. He denies fevers, chills, diarrhea, or rash. Vital signs are stable with a temperature of 97.4F, pulse of 94 bpm, respiratory rate of 16 breaths per minute, blood pressure of 109/68 mmHg, and SpO2 of 97% on room air. Physical exam reveals the right foot is entirely erythematous with drainage on the right heel. Laboratory studies show leukocytosis with WBC 17.3, elevated CRP at 14.45, lactic acid 1.8, creatinine 1.1. Hemoglobin is 14.1, and platelets are 401. HbA1c is elevated at 11.8%, indicating poorly controlled diabetes. CT of the right lower extremity shows findings suspicious for osteomyelitis of the great toe proximal and distal phalanges, and extensive subcutaneous edema on the plantar forefoot about the first and second toes consistent with gas-forming bacterial infection plus gas gangrene. Superficial wound cultures are growing gram-negative rods, gram-positive rods, and viridans group B streptococci. Dr. Mensah performed a right foot debridement for gas gangrene with incision and drainage of an abscess at the level of the bone. Deep cultures were obtained during the procedure. 09/12: white count is down to 12.2 . His superficial wound cultures is growing klebsiella oxytosa that is chinchilla sensitive and during surgery today patient underwent debridement again to the bone and wound was kept open 09/13: whitecount is 12.1 Plan: - podiatry plans to Close the wound with dermal graft application on Ben - recommend piccline placement for planning 6 weeks of IV antibiotic therapy determined by operative culture results - follow up on operative cultures - Continue vancomycin and Zosyn for broad-spectrum coverage pending culture results. - Aim to improve diabetic control with a goal of keeping blood sugars under 180 mg/dL to enhance wound healing; will coordinate with endocrinology for management. - Follow up on blood cultures and deep wound cultures to tailor antibiotic therapy appropriately. - Agree with Podiatry evaluation for any additional debridement as necessary. - Recommend close outpatient follow-up with primary care physician to manage diabetes and prevent future complications. Plan discussed with: Other Dietary Evaluation Review Comments: 1) Advance pt diet when medically feasible to a [facility] 60g diet 2) Continue current plan of care Expected Outcomes/Goals: F/U in 3-5 days BLANCA SCHWARTZ MD Sep 13, 2024 23:07
[2024-09-14] VITALS (8 sets, daily range): BP systolic 106–144; BP diastolic 60–73; PULSE 52–81; RESP 16–19; TEMP 97.8–98.4; O2SAT 95–97
[2024-09-14 07:32] LABS: Basophils # (auto) 0.1 10 ^3/uL (0-0.2); Basophils % (auto) 0.6 % (0.0-2.0); Eosinophils # (auto) 0.7 10 ^3/uL (0-0.8); Eosinophils % (auto) 6.7 % (0.0-7.0); Hematocrit 36.9 % (41.0-53.0); Hemoglobin 12.3 g/dL (13.5-17.5); Lymphocytes # (auto) 2.8 10 ^3/uL (0.4-5.4); Lymphocytes % (auto) 26.2 % (10.0-50.0); Mean Corpuscular Hemoglobin 30.1 pg (28.0-32.0); Mean Corpuscular Hgb Conc. 33.5 g/dL (32.0-36.0); Mean Corpuscular Volume 89.9 fL (80.0-100.0); Monocytes # (auto) 0.8 10 ^3/uL (0-1.3); Monocytes % (auto) 7.8 % (0.0-12.0); Neutrophils # (auto) 6.3 10 ^3/uL (1.6-8.6); Neutrophils % (auto) 58.7 % (37.0-80.0); Platelet Count (auto) 377 10^3/uL (140-450); Red Cell Distribution Width 13.2 % (11.8-14.3); White Blood Cell 10.7 10^3/uL (4.4-10.8)
--- NOTE | 2024-09-14 18:53 | DVHPN2 ---
Subjective no complaints/ Reviewed: Care Plan, H&P, Labs, Medications Changes from previous H/P or p: No Changes General: Per HPI Eyes: No Pain, No Vision change, No Conjunctivae inflammation, No Eyelid inflammation, No Other, No Redness ENT: No Ear pain, No Ear discharge, No Nose pain, No Nose discharge, No Nose congestion, No Mouth pain, No Mouth swelling, No Throat pain, No Throat swelling, No Other Cardiovascular: No Chest Pain, No Palpitations, No Orthopnea, No Paroxysmal Noc. Dyspnea, No Edema, No Lt Headedness, No Other Respiratory: No Cough, No Dry, No Shortness of breath, No SOB with excertion, No Wheezing, No Hemoptysis, No Pleuritic Pain, No Sputum, No Other Gastrointestinal: No Nausea, No Vomiting, No Abdominal Pain, No Diarrhea, No Constipation, No Melena, No Hematochezia, No Other Genitourinary: No Dysuria, No Frequency, No Incontinence, No Hematuria, No Retention, No Other Musculoskeletal: No other, No neck pain, No shoulder pain, No arm pain, No back pain, No hand pain, No leg pain; foot pain Skin: No Rash, No Lesions, No Jaundice, No Bruising; Other (erythema) Objective Vitals Vital Signs Date Time Temp Pulse Resp B/P (MAP) Pulse Ox O2 Delivery O2 Flow Rate FiO2 09/14/24 17:00 97.9 65 16 106/60 (75) 95 97.9 09/14/24 08:00 Room Air* 0 21 Intake/Output Intake and Output 09/14/24 07:00 Intake Total 1305 ml Output Total 1850 ml Balance -545 ml Intake Oral 955 ml IV Total 350 ml Output Urine Total 1850 ml # Bowel Movements 1 General Appearance: Alert, Oriented X3, Cooperative, No acute distress HEENT: Atraumatic, PERRLA Lungs: Clear to auscultation, Normal air movement Cardiovascular: Normal S1, Normal S2 Abdomen: Normal bowel sounds, Soft, No tenderness, No hepatospenomegaly Musculoskeletal: Normal sensory function, Normal motor function Extremities: Other (rt le dressing in place) Neuro: Normal gait, Normal speech Psych/Mental Status: Mental status NL, Mood NL Medications Current Medications Medications Dose Ordered Sig/Ruby Route Start Time Stop Time Status Last Admin Dose Admin Vancomycin HCl 0 ml @ 0 mls/hr UD IV 09/08/24 09:00 Acetaminophen/ Hydrocodone Bitart 1 tab Q4HP PRN PO 09/08/24 13:00 09/12/24 16:30 1 TAB Docusate Sodium 100 mg BIDPRN PRN PO 09/08/24 13:00 Acetaminophen 650 mg Q6HP PRN PO 09/08/24 13:00 Diagnostic Test (Pha) 1 strip ACHS 09/08/24 17:00 09/14/24 17:20 1 STRIP Insulin Human Regular HS SC 09/08/24 22:00 09/13/24 22:06 8 UNITS Insulin Human Regular AC SC 09/08/24 17:00 09/14/24 17:21 9 UNITS Dextrose 50 ml UD PRN IV 09/08/24 13:00 Piperacillin Sod/ Tazobactam Sod 100 ml @ 25 mls/hr Q8HR IV 09/08/24 14:00 09/14/24 14:41 25 MLS/HR Vancomycin HCl 250 ml @ 250 mls/hr Q12H IV 09/11/24 12:00 09/14/24 11:43 250 MLS/HR Insulin Glargine 18 units HS SC 09/13/24 22:00 09/13/24 22:06 18 UNITS Sodium Chloride 10 ml QSHIFT@ IV 09/13/24 22:00 09/14/24 10:13 10 ML Laboratory Results Laboratory Tests 09/13/24 05:20 09/14/24 06:18 Urinalysis Test 09/08/24 09:21 Urine Color Light-yellow (Yellow) Urine Clarity Clear (Clear) Urine pH 6.5 (5.0-9.0) Urine Specific [place] 1.050 (1.001-1.035) Urine Protein Negative (Negative) Urine Ketones Trace (Negative) Urine Blood Negative /uL (Negative) Urine Nitrite Negative (Negative) Urine Bilirubin Negative (Negative) Urine Urobilinogen Normal mg/dL (Negative) Urine Leukocyte Esterase Negative /uL (Negative) Urine RBC 1 /hpf (0 - 3) Urine WBC <1 /hpf (0 - 3) Urine Squamous Epithelial Cells Few /hpf (<5) Urine Bacteria None seen /hpf (None Seen) Urine Mucus Few (None Seen) Urine Glucose 4+ mg/dL (Normal) H Microbiology Microbiology Date/Time Source Procedure Growth Status 09/10/24 16:11 Foot Right Gram Stain - Final Resulted 09/10/24 16:11 Foot Right Anaerobic Culture - Preliminary Resulted 09/10/24 16:11 Aerobic Culture - Final Klebsiella oxytoca Staphylococcus aureus Resulted 09/08/24 09:14 Blood Blood Culture - Final NO GROWTH AFTER 5 DAYS OF INCUBATION. Complete Labs and/or images reviewed: Labs reviewed by me, Image(s) reviewed by me Assessment/Plan Assessment/Plan osteomyelitis/gas gangrene rt foof- s/p i and d- on iv antibiotics/followed by id and podiatry dm adjust insulin passive rom exercise at bedside- explained and encouraged to avoid dvt Plan discussed with: Patient, Spouse Date of Service: Sep 14, 2024 Billing Provider: JULIA SCHWARTZ MD Common Visit Codes: [id number] INP/OBS CARE(MOD) JULIA SCHWARTZ MD Sep 14, 2024 18:53
[2024-09-14] MEDS: AMPICILLIN & SULBACTAM SODIUM 3 GM in SODIUM CHL 0.9% 100 ML IV SCH (22:15)
--- NOTE | 2024-09-14 23:04 | DVHPN2 ---
Consult Progress Note Date Seen: Sep 14, 2024 Subjective Patient reports: No new complaints (his right leg is extensively bandaged and no drainage through the bandages ), Other Objective vital signs Vital Sign Date Time Temp Pulse Resp B/P (MAP) Pulse Ox O2 Delivery O2 Flow Rate FiO2 09/14/24 21:00 98.4 81 17 114/68 (83) 95 98.4 09/14/24 20:00 Room Air* 0 21 Total Intake and Output 09/13/24 09/13/24 09/14/24 15:00 23:00 07:00 Intake Total 600 ml 705 ml Output Total 1000 ml 850 ml Balance -400 ml -145 ml medications Current Medications Medications Dose Ordered Sig/Ruby Route Start Time Stop Time Status Last Admin Dose Admin Vancomycin HCl 0 ml @ 0 mls/hr UD IV 09/08/24 09:00 Cancel Acetaminophen/ Hydrocodone Bitart 1 tab Q4HP PRN PO 09/08/24 13:00 09/12/24 16:30 1 TAB Docusate Sodium 100 mg BIDPRN PRN PO 09/08/24 13:00 Acetaminophen 650 mg Q6HP PRN PO 09/08/24 13:00 Diagnostic Test (Pha) 1 strip ACHS 09/08/24 17:00 09/14/24 21:56 1 STRIP Insulin Human Regular HS SC 09/08/24 22:00 09/14/24 22:14 8 UNITS Insulin Human Regular AC SC 09/08/24 17:00 09/14/24 17:21 9 UNITS Dextrose 50 ml UD PRN IV 09/08/24 13:00 Insulin Glargine 18 units HS SC 09/13/24 22:00 09/14/24 22:13 18 UNITS Sodium Chloride 10 ml QSHIFT@, IV 09/13/24 22:00 09/14/24 21:25 10 ML Ampicillin Sodium/ Sulbactam Sodium 3 gm/Sodium Chloride 100 ml @ 100 mls/hr Q6H IV 09/14/24 22:15 laboratory and microbiology Laboratory Tests 09/14/24 06:18 09/13/24 05:20 Test 09/13/24 05:20 Range/Units Serum Glucose 196 H 74-106 mg/dL Problem List/Assessment/Plan Problems(with codes): (1) Osteomyelitis (2) Gas gangrene (3) Pneumonia due to Coronavirus disease 2018 (4) Acute respiratory distress (5) Diabetes type 2 (6) Peripheral arterial disease (7) Sepsis Problem List/Assessment/Plan ID Problem List: - Diabetic foot ulcer - Osteomyelitis - Gas gangrene - Poorly controlled diabetes mellitus type 2 - Gas-forming bacterial infection Assessment This is a 69 y.o. male with a past medical history of diabetes mellitus type 2 managed with metformin, who presents with a right foot diabetic ulcer exhibiting signs of infection. The patient reports that the ulcer had been closed for a while but reopened two weeks ago on the plantar side of his heel with drainage and pus. He denies fevers, chills, diarrhea, or rash. Vital signs are stable with a temperature of 97.4F, pulse of 94 bpm, respiratory rate of 16 breaths per minute, blood pressure of 109/68 mmHg, and SpO2 of 97% on room air. Physical exam reveals the right foot is entirely erythematous with drainage on the right heel. Laboratory studies show leukocytosis with WBC 17.3, elevated CRP at 14.45, lactic acid 1.8, creatinine 1.1. Hemoglobin is 14.1, and platelets are 401. HbA1c is elevated at 11.8%, indicating poorly controlled diabetes. CT of the right lower extremity shows findings suspicious for osteomyelitis of the great toe proximal and distal phalanges, and extensive subcutaneous edema on the plantar forefoot about the first and second toes consistent with gas-forming bacterial infection plus gas gangrene. Superficial wound cultures are growing gram-negative rods, gram-positive rods, and viridans group B streptococci. Dr. Mensah performed a right foot debridement for gas gangrene with incision and drainage of an abscess at the level of the bone. Deep cultures were obtained during the procedure. 09/12: white count is down to 12.2 . His superficial wound cultures is growing klebsiella oxytosa that is chinchilla sensitive and during surgery today patient underwent debridement again to the bone and wound was kept open 09/13: whitecount is 12.1 09/14: Whitecount is 10.7 . Cultures are growing MSSA Klebsiella Plan: - podiatry plans to Close the wound with dermal graft application on Sunday - recommend piccline placement for planning 6 weeks of IV antibiotic therapy determined by operative culture results - follow up on operative cultures - Stop vancomycin and Zosyn - Start Unasyn via piccline for 6 weeks - follow up with infectious disease in 4 weeks - Aim to improve diabetic control with a goal of keeping blood sugars under 180 mg/dL to enhance wound healing; will coordinate with endocrinology for management. - Follow up on blood cultures and deep wound cultures to tailor antibiotic therapy appropriately. - Agree with Podiatry evaluation for any additional debridement as necessary. - Recommend close outpatient follow-up with primary care physician to manage diabetes and prevent future complications. Plan discussed with: Other Dietary Evaluation Review Comments: 1) Advance pt diet when medically feasible to a [facility] 60g diet 2) Continue current plan of care Expected Outcomes/Goals: F/U in 3-5 days BLANCA SCHWARTZ MD Sep 14, 2024 23:04
[2024-09-15] VITALS (7 sets, daily range): BP systolic 103–138; BP diastolic 59–68; PULSE 57–73; RESP 16–18; TEMP 97.2–98.8; O2SAT 92–99
[2024-09-15 06:51] LABS: Basophils # (auto) 0.1 10 ^3/uL (0-0.2); Basophils % (auto) 0.7 % (0.0-2.0); Eosinophils # (auto) 0.5 10 ^3/uL (0-0.8); Eosinophils % (auto) 3.9 % (0.0-7.0); Hematocrit 39.5 % (41.0-53.0); Hemoglobin 12.9 g/dL (13.5-17.5); Lymphocytes # (auto) 2.3 10 ^3/uL (0.4-5.4); Lymphocytes % (auto) 19.1 % (10.0-50.0); Mean Corpuscular Hemoglobin 29.3 pg (28.0-32.0); Mean Corpuscular Hgb Conc. 32.8 g/dL (32.0-36.0); Mean Corpuscular Volume 89.4 fL (80.0-100.0); Monocytes # (auto) 0.7 10 ^3/uL (0-1.3); Monocytes % (auto) 6.2 % (0.0-12.0); Neutrophils # (auto) 8.4 10 ^3/uL (1.6-8.6); Neutrophils % (auto) 70.1 % (37.0-80.0); Platelet Count (auto) 445 10^3/uL (140-450); Red Blood Cells 4.41 10^6/uL (4.5-5.90); Red Cell Distribution Width 13.7 % (11.8-14.3)
[2024-09-15 06:57] LABS: Chloride 101 mmol/L (98-107); Potassium 3.9 mmol/L (3.5-5.1); Sodium 137 mmol/L (136-145)
[2024-09-15 06:58] LABS: Anion Gap 7 (5-15); Calcium 9.6 mg/dL (8.7-10.4); Carbon Dioxide 29 mmol/L (20-31)
[2024-09-15 07:03] LABS: BUN/Creatinine Ratio 15.8 (10.0-20.0); Blood Urea Nitrogen 15 mg/dL (9-23)
[2024-09-15 07:05] LABS: Glucose 138 mg/dL (74-106)
--- NOTE | 2024-09-15 11:37 | DVHPN2 ---
Subjective Knees, Jeff Hernandez is a 69 year year old male with past medical history of diabetes who presents to the ED for right foot pain. Patient reports that 2 weeks ago he had a callus on the plantar side, then on Sunday he noticed that there was some drainage of pus and it was an open wound. Patient stated that he had his clean the foot for him. He is here for an evaluation. Patient reports that he takes metformin for his diabetes and is compliant. He denies fever, chills, shortness of breath, chest pain, tingling, numbness, nausea, vomiting, diarrhea, and abdominal pain. Reviewed: Care Plan, H&P, Labs, Medications Changes from previous H/P or p: No Changes General: Per HPI Eyes: No Pain, No Vision change, No Conjunctivae inflammation, No Eyelid inflammation, No Other, No Redness ENT: No Ear pain, No Ear discharge, No Nose pain, No Nose discharge, No Nose congestion, No Mouth pain, No Mouth swelling, No Throat pain, No Throat swelling, No Other Cardiovascular: No Chest Pain, No Palpitations, No Orthopnea, No Paroxysmal Noc. Dyspnea, No Edema, No Lt Headedness, No Other Respiratory: No Cough, No Dry, No Shortness of breath, No SOB with excertion, No Wheezing, No Hemoptysis, No Pleuritic Pain, No Sputum, No Other Gastrointestinal: No Nausea, No Vomiting, No Abdominal Pain, No Diarrhea, No Constipation, No Melena, No Hematochezia, No Other Genitourinary: No Dysuria, No Frequency, No Incontinence, No Hematuria, No Retention, No Other Musculoskeletal: No other, No neck pain, No shoulder pain, No arm pain, No back pain, No hand pain, No leg pain; foot pain Skin: No Rash, No Lesions, No Jaundice, No Bruising; Other (erythema) Objective Vitals Vital Signs Date Time Temp Pulse Resp B/P (MAP) Pulse Ox O2 Delivery O2 Flow Rate FiO2 09/15/24 09:21 98.3 66 16 138/67 (90) 97 98.3 09/14/24 20:00 Room Air* 0 21 Intake/Output Intake and Output 09/15/24 07:00 Intake Total 1570 ml Output Total 1400 ml Balance 170 ml Intake Oral 1220 ml IV Total 350 ml Output Urine Total 1400 ml Exam DERMATOLOGIC EXAM: - Skin is dry and cool to the touch dry bilaterally. - Nails 1-5 of the bilateral foot are thickened, discolored, dystrophic, and tender to palpate with subungual debris - Hair loss noted to bilateral feet Wound #1: Location: Right sub 3rd Measurements: Length 1 cm x width 2 cm x depth 1 cm. Wound margins: Hyperkeratotic. Wound base: Full thickness. General Appearance: Malodor Probes to Bone: No Purulent drainage: Yes Serous drainage: No Erythema: Periwound VASCULAR EXAM: - DP and PT pulses are palpable bilaterally. - [employer] M[employer] is brisk to all digits. - Feet are cool to touch compared to lower legs bilaterally. NEUROLOGIC EXAM: - Normal light touch sensation to the superficial peroneal, deep peroneal, sural, saphenous, and tibial nerve branches. - Protective sensation is diminished as tested with a 5.07 10g [place] bilaterally. MUSCULOSKELETAL EXAM: - No gross deformities - Muscle strength is 5/5 and active motion is pain-free and symmetrical bilaterally - No pain or crepitation with passive range of motion bilaterally to all major pedal joints General Appearance: Alert, Oriented X3, Cooperative, No acute distress HEENT: Atraumatic, PERRLA Lungs: Clear to auscultation, Normal air movement Cardiovascular: Normal S1, Normal S2 Abdomen: Normal bowel sounds, Soft, No tenderness, No hepatospenomegaly Musculoskeletal: Normal sensory function, Normal motor function Extremities: Other (rt le dressing in place) Neuro: Normal gait, Normal speech Psych/Mental Status: Mental status NL, Mood NL Medications Current Medications Medications Dose Ordered Sig/Ruby Route Start Time Stop Time Status Last Admin Dose Admin Vancomycin HCl 0 ml @ 0 mls/hr UD IV 09/08/24 09:00 Cancel Acetaminophen/ Hydrocodone Bitart 1 tab Q4HP PRN PO 09/08/24 13:00 09/12/24 16:30 1 TAB Docusate Sodium 100 mg BIDPRN PRN PO 09/08/24 13:00 Acetaminophen 650 mg Q6HP PRN PO 09/08/24 13:00 Diagnostic Test (Pha) 1 strip ACHS 09/08/24 17:00 09/15/24 11:12 1 STRIP Insulin Human Regular HS SC 09/08/24 22:00 09/14/24 22:14 8 UNITS Insulin Human Regular AC SC 09/08/24 17:00 09/14/24 17:21 9 UNITS Dextrose 50 ml UD PRN IV 09/08/24 13:00 Insulin Glargine 18 units HS SC 09/13/24 22:00 09/14/24 22:13 18 UNITS Sodium Chloride 10 ml QSHIFT@10,22 IV 09/13/24 22:00 09/14/24 21:25 10 ML Ampicillin Sodium/ Sulbactam Sodium 3 gm/Sodium Chloride 100 ml @ 100 mls/hr Q6H IV 09/14/24 22:15 09/15/24 11:05 100 MLS/HR Laboratory Results Laboratory Tests 09/15/24 05:44 Chemistry Test 09/15/24 05:44 Calcium Level 9.6 mg/dL (8.7-10.4) Urinalysis Test 09/08/24 09:21 Urine Color Light-yellow (Yellow) Urine Clarity Clear (Clear) Urine pH 6.5 (5.0-9.0) Urine Specific [place] 1.050 (1.001-1.035) Urine Protein Negative (Negative) Urine Ketones Trace (Negative) Urine Blood Negative /uL (Negative) Urine Nitrite Negative (Negative) Urine Bilirubin Negative (Negative) Urine Urobilinogen Normal mg/dL (Negative) Urine Leukocyte Esterase Negative /uL (Negative) Urine RBC 1 /hpf (0 - 3) Urine WBC <1 /hpf (0 - 3) Urine Squamous Epithelial Cells Few /hpf (<5) Urine Bacteria None seen /hpf (None Seen) Urine Mucus Few (None Seen) Urine Glucose 4+ mg/dL (Normal) H Microbiology Microbiology Date/Time Source Procedure Growth Status 09/10/24 16:11 Foot Right Gram Stain - Final Resulted 09/10/24 16:11 Foot Right Anaerobic Culture - Preliminary Resulted 09/10/24 16:11 Aerobic Culture - Final Klebsiella oxytoca Staphylococcus aureus Resulted 09/08/24 09:14 Blood Blood Culture - Final NO GROWTH AFTER 5 DAYS OF INCUBATION. Complete Assessment/Plan Assessment/Plan ASSESSMENT: Patient is a 69-year-old male seen on the floor for 4 day s/p from a I&D PLAN: - The patients chart was reviewed, clinical findings were discussed with the patient, the etiologies of the conditions were discussed in detail, and a treatment plan was agreed to at this time, with both oral and written instructions provided. - discussed that surgery went well but he had significant amount of necrosis of the soft tissue - we will plan to take him back to the OR today - we will take him back to the OR for a dermal graft today - patient has been NPO since midnight - we will take him to the OR today All questions were answered and concerns addressed to the patient's satisfaction. The patient was given the phone number to the clinic and was told how to make contact with the clinic should any concerns or questions arise. Patient understands that if any questions or concerns arise prior to the next appointment, we should be contacted immediately. FOLLOW-UP: We will continue to follow while inpatient Plan discussed with: Patient My Orders Orders - LIZET SHELDON DPM Procedure Category Date Status Time Npo After Midnight DIET 09/15/24 Transmitted Breakfast Obtain Consent For: ORDERS 09/14/24 Transmitted 23:22 Problem List: (1) Sepsis (2) Peripheral arterial disease (3) Diabetes type 2 (4) Acute respiratory distress (5) Pneumonia due to Coronavirus disease 2018 (6) Gas gangrene (7) Osteomyelitis Date of Service: Sep 15, 2024 Billing Provider: LIZET SHELDON DPM Common Visit Codes: [id number] INP/OBS CARE(MOD) LIZET SHELDON DPM Sep 15, 2024 11:37
[2024-09-15] MEDS ORDERED: MIDAZOLAM HCL 2MG/2ML 2ml VIAL (1mg/ml) ONE (11:39)
--- NOTE | 2024-09-15 12:17 | DVHOP2 ---
Operative Report - 2 Report Details Date: 09/15/24 Preop Diagnosis: 1. Right foot gas gangrene 2. Right foot abscess 3. Right foot diabetic ulcer Postop Diagnosis: Same as preop Surgeon: Lizet Sheldon MD Anesthesiologist: See anesthesia Anesthesia: Mac Consent: The patient was informed of the risks and benefits of the procedure. These include but are not limited to complications of anesthesia, postoperative infection, incomplete relief of symptoms, recurrence of symptoms, damage to blood vessels, nerves and tendons, deep venous thrombosis, pulmonary embolism and possible need for repeat surgery in the future. Complications: None Estimated Blood Loss: Minimal Fluids: See anesthesia Findings: Consistent with diagnosis Indications for Surgery: Worsening right foot wound Name of Procedure Performed 1. Right foot I&D to bone (01450) 2. Right foot application of dermal graft (55361) Procedure Details Procedure Details: PRE-PROCEDURE INFORMATION: In the pre-op holding area, the extremity to be operated on was clearly marked and the patient verified correct laterality of the marking. The patient was transferred to the OR table and placed in a supine position. A timeout was performed in which identification of the correct patient, procedure, location, and materials was done. The right foot and leg were prepped and draped in normal sterile fashion. The foot and leg were exsanguinated and the thigh tourniquet was inflated to 250 mmHg. DESCRIPTION OF PROCEDURE: Attention was directed to the right foot where area of fluctuance and previous incision was made was noted. An incision was made over this area and was deepened through blunt dissection. The incision was deepened to the level of abscess and bone. Care was taken to the dissection to avoid any neurovascular and tendinous structures. The incision was deepened to the bone, and the abscess appeared to be purulent fluid consistent with pus. After the abscess was drained, the area was irrigated with 3 L normal saline using cysto tubing. The area was then inspected and any areas of tracking, especially along the tendons were also drained. A 5 x 5 Integra dermal graft was then used over the wound, and was adhered to the wound bed with a staple gun. A dry sterile dressing was placed on the surgical extremity. The patient was placed in a postop shoe. POSTOPERATIVE INFORMATION: The patient tolerated the above noted procedure and anesthesia well and was transferred to the PACU with vital signs stable, and vascular status intact with capillary refill intact to all digits. Patient can be discharged when medically cleared. Patient to leave the dressings intact until follow up appointment. Patient will follow up with me in 1 week. Condition Good Disposition Still a Patient LIZET SHELDON DPM Sep 15, 2024 12:17
[2024-09-15] MEDS ORDERED: PROPOFOL 10 MG/ML 20 ML IV ONE (13:58)
[2024-09-15] MEDS ORDERED: LANC-268 XX ×2 (15:08)
[2024-09-15] MEDS ORDERED: BLOO1KIT60 XX ×2 (15:09)
[2024-09-15] MEDS ORDERED: INSU1INJ19 SC ×2 (15:09)
--- NOTE | 2024-09-15 15:10 | DVHPN2 ---
Subjective Denies any new symptoms. Reviewed: Care Plan, H&P, Labs, Medications Changes from previous H/P or p: No Changes General: Per HPI Eyes: No Pain, No Vision change, No Conjunctivae inflammation, No Eyelid inflammation, No Other, No Redness ENT: No Ear pain, No Ear discharge, No Nose pain, No Nose discharge, No Nose congestion, No Mouth pain, No Mouth swelling, No Throat pain, No Throat swelling, No Other Cardiovascular: No Chest Pain, No Palpitations, No Orthopnea, No Paroxysmal Noc. Dyspnea, No Edema, No Lt Headedness, No Other Respiratory: No Cough, No Dry, No Shortness of breath, No SOB with excertion, No Wheezing, No Hemoptysis, No Pleuritic Pain, No Sputum, No Other Gastrointestinal: No Nausea, No Vomiting, No Abdominal Pain, No Diarrhea, No Constipation, No Melena, No Hematochezia, No Other Genitourinary: No Dysuria, No Frequency, No Incontinence, No Hematuria, No Retention, No Other Musculoskeletal: No other, No neck pain, No shoulder pain, No arm pain, No back pain, No hand pain, No leg pain; foot pain Skin: No Rash, No Lesions, No Jaundice, No Bruising; Other (erythema) Objective Vitals Vital Signs Date Time Temp Pulse Resp B/P (MAP) Pulse Ox O2 Delivery O2 Flow Rate FiO2 09/15/24 13:00 97.5 57 16 104/65 (78) 92 97.5 09/15/24 07:55 Room Air* 0 21 Intake/Output Intake and Output 09/15/24 07:00 Intake Total 1570 ml Output Total 1400 ml Balance 170 ml Intake Oral 1220 ml IV Total 350 ml Output Urine Total 1400 ml General Appearance: Alert, Oriented X3, Cooperative, No acute distress HEENT: Atraumatic, PERRLA Lungs: Clear to auscultation, Normal air movement Cardiovascular: Normal S1, Normal S2 Abdomen: Normal bowel sounds, Soft, No tenderness, No hepatospenomegaly Musculoskeletal: Normal sensory function, Normal motor function Extremities: Other (rt le dressing in place) Neuro: Normal gait, Normal speech Psych/Mental Status: Mental status NL, Mood NL Medications Current Medications Medications Dose Ordered Sig/Ruby Route Start Time Stop Time Status Last Admin Dose Admin Vancomycin HCl 0 ml @ 0 mls/hr UD IV 09/08/24 09:00 Cancel Acetaminophen/ Hydrocodone Bitart 1 tab Q4HP PRN PO 09/08/24 13:00 09/12/24 16:30 1 TAB Docusate Sodium 100 mg BIDPRN PRN PO 09/08/24 13:00 Acetaminophen 650 mg Q6HP PRN PO 09/08/24 13:00 Diagnostic Test (Pha) 1 strip ACHS 09/08/24 17:00 09/15/24 11:12 1 STRIP Insulin Human Regular HS SC 09/08/24 22:00 09/14/24 22:14 8 UNITS Insulin Human Regular AC SC 09/08/24 17:00 09/14/24 17:21 9 UNITS Dextrose 50 ml UD PRN IV 09/08/24 13:00 Insulin Glargine 18 units HS SC 09/13/24 22:00 09/14/24 22:13 18 UNITS Sodium Chloride 10 ml QSHIFT@ IV 09/13/24 22:00 09/15/24 10:00 10 ML Ampicillin Sodium/ Sulbactam Sodium 3 gm/Sodium Chloride 100 ml @ 100 mls/hr Q6H IV 09/14/24 22:15 09/15/24 11:05 100 MLS/HR Laboratory Results Laboratory Tests 09/15/24 05:44 Chemistry Test 09/15/24 05:44 Calcium Level 9.6 mg/dL (8.7-10.4) Urinalysis Test 09/08/24 09:21 Urine Color Light-yellow (Yellow) Urine Clarity Clear (Clear) Urine pH 6.5 (5.0-9.0) Urine Specific [place] 1.050 (1.001-1.035) Urine Protein Negative (Negative) Urine Ketones Trace (Negative) Urine Blood Negative /uL (Negative) Urine Nitrite Negative (Negative) Urine Bilirubin Negative (Negative) Urine Urobilinogen Normal mg/dL (Negative) Urine Leukocyte Esterase Negative /uL (Negative) Urine RBC 1 /hpf (0 - 3) Urine WBC <1 /hpf (0 - 3) Urine Squamous Epithelial Cells Few /hpf (<5) Urine Bacteria None seen /hpf (None Seen) Urine Mucus Few (None Seen) Urine Glucose 4+ mg/dL (Normal) H Microbiology Microbiology Date/Time Source Procedure Growth Status 09/10/24 16:11 Foot Right Gram Stain - Final Resulted 09/10/24 16:11 Foot Right Anaerobic Culture - Preliminary Resulted 09/10/24 16:11 Aerobic Culture - Final Klebsiella oxytoca Staphylococcus aureus Resulted 09/08/24 09:14 Blood Blood Culture - Final NO GROWTH AFTER 5 DAYS OF INCUBATION. Complete Labs and/or images reviewed: Labs reviewed by me, Image(s) reviewed by me Assessment/Plan Assessment/Plan Impression: -right foot osteomyelitis -diabetes mellitus, uncontrolled with hemoglobin A1c 11.8 -rule out peripheral arterial disease -peripheral neuropathy Plan: -events: Patient to OR today for closure of his wound. Medically cleared by Podiatry to be discharged home. Infectious disease consultation recommendations reviewed with orders placed with social and political studies professor. -podiatry consultation -regular insulin sliding scale , add Lantus 15 units q.h.s. -wound and blood culture : Pending -wound care per podiatry/wound care nurse -continue Unasyn -discharge patient tomorrow once home health services and antibiotics have been established. Total time spent with patient discussing and formulating plan of care: 35 minutes. This medical document was created using an electronic medical record system with [employer] dictation system. Although this document has been carefully reviewed, there may still be some phonetic and typographical errors. These areas are purely typographical due to imperfections of the software programs, and do not reflect any compromise in the patient's medical care. Plan discussed with: Patient, Other (RN) Date of Service: Sep 15, 2024 Billing Provider: MONSE SHELTON NP Common Visit Codes: [id number] INP/OBS CARE(HIGH) MONSE SHELTON NP Sep 15, 2024 15:10
[2024-09-15] MEDS: BUPIVACAINE 0.5% P/F INJ 10 ML VIAL ONE (16:19)
[2024-09-16 05:00] VITALS: BP 108/58; PULSE 55; RESP 18; TEMP 98.1; O2SAT 95
[2024-09-16 09:18] VITALS: BP 134/64; PULSE 58; RESP 16; TEMP 97.6; O2SAT 99
[2024-09-16 13:09] VITALS: BP 104/51; PULSE 53; RESP 16; TEMP 98; O2SAT 95
--- NOTE | 2024-09-16 13:20 | DVHDS2 ---
Discharge Summary Date of Admission Sep 08, 2024 at 12:56 Date of Discharge: Sep 16, 2024 Admitting Diagnosis Right foot osteomyelitis Labs/Diagnostic Data: Laboratory Results Test 09/16/24 11:32 09/15/24 11:00 09/15/24 05:44 09/13/24 11:20 POC Glucose 191 mg/dl (70-106) Vancomycin Level Trough 8.1 ug/mL (5-10) White Blood Count 12.0 10^3/uL (4.4-10.8) Red Blood Count 4.41 10^6/uL (4.5-5.90) Hemoglobin 12.9 g/dL (13.5-17.5) Hematocrit 39.5 % (41.0-53.0) Mean Corpuscular Volume 89.4 fL (80.0-100.0) Mean Corpuscular Hemoglobin 29.3 pg (28.0-32.0) Mean Corpuscular Hemoglobin Concent 32.8 g/dL (32.0-36.0) Red Cell Distribution Width 13.7 % (11.8-14.3) Platelet Count 445 10^3/uL (140-450) Mean Platelet Volume 8.3 fL (6.9-10.8) Neutrophils (%) (Auto) 70.1 % (37.0-80.0) Lymphocytes (%) (Auto) 19.1 % (10.0-50.0) Monocytes (%) (Auto) 6.2 % (0.0-12.0) Eosinophils (%) (Auto) 3.9 % (0.0-7.0) Basophils (%) (Auto) 0.7 % (0.0-2.0) Neutrophils # (Auto) 8.4 10 ^3/uL (1.6-8.6) Lymphocytes # (Auto) 2.3 10 ^3/uL (0.4-5.4) Monocytes # (Auto) 0.7 10 ^3/uL (0-1.3) Eosinophils # (Auto) 0.5 10 ^3/uL (0-0.8) Basophils # (Auto) 0.1 10 ^3/uL (0-0.2) Nucleated Red Blood Cells 0.0 % Sodium Level 137 mmol/L (136-145) Potassium Level 3.9 mmol/L (3.5-5.1) Chloride Level 101 mmol/L (98-107) Carbon Dioxide Level 29 mmol/L (20-31) Anion Gap 7 (5-15) Blood Urea Nitrogen 15 mg/dL (9-23) Creatinine 0.95 mg/dL (0.700-1.30) Glomerular Filtration Rate Calc 87 mL/min (>90) BUN/Creatinine Ratio 15.8 (10.0-20.0) Serum Glucose 138 mg/dL (74-106) Calcium Level 9.6 mg/dL (8.7-10.4) Prothrombin Time 11.5 sec (9.3-11.8) Prothrombin Time INR 1.09 (0.9-1.15) Activated Partial Thromboplast Time 26.2 SEC (24.5-34.5) Test 09/09/24 03:20 09/08/24 13:20 09/08/24 09:21 09/08/24 09:14 Total Bilirubin 0.5 mg/dL (0.2-1.0) Aspartate Amino Transferase (AST) 17 U/L (13-40) Alanine Aminotransferase (ALT) 18 U/L (7-40) Alkaline Phosphatase 82 U/L (46-116) Total Protein 6.6 g/dL (5.7-8.2) Albumin 3.1 g/dL (3.2-4.8) Triglycerides Level 89 mg/dL (< 150) Cholesterol Level 93 mg/dL (< 200) LDL Cholesterol 50 mg/dL (< 100) HDL Cholesterol 28 mg/dL (40-59) Lactic Acid Level 1.0 mmol/L (0.4-2.0) Troponin I High Sensitivity < 3 ng/L (</=54) Urine Color Light-yellow (Yellow) Urine Clarity Clear (Clear) Urine pH 6.5 (5.0-9.0) Urine Specific [place] 1.050 (1.001-1.035) Urine Protein Negative (Negative) Urine Ketones Trace (Negative) Urine Blood Negative /uL (Negative) Urine Nitrite Negative (Negative) Urine Bilirubin Negative (Negative) Urine Urobilinogen Normal mg/dL (Negative) Urine Leukocyte Esterase Negative /uL (Negative) Urine RBC 1 /hpf (0 - 3) Urine WBC <1 /hpf (0 - 3) Urine Squamous Epithelial Cells Few /hpf (<5) Urine Bacteria None seen /hpf (None Seen) Urine Mucus Few (None Seen) Urine Glucose 4+ mg/dL (Normal) Erythrocyte Sedimentation Rate 75 mm/hr (0-20) Hemoglobin A1c 11.8 % A1C (<5.7) C-Reactive Protein High Sensitivity 14.15 mg/dL (<1.0) Other Laboratory Tests 09/15/24 05:44 Brief Hx & Hospital Course: History of Present Illness Jeff Ruiz is a 69 year year old male with past medical history of diabetes who presents to the ED for right foot pain. Patient reports that 2 weeks ago he had a callus on the plantar side, then on Sunday he noticed that there was some drainage of pus and it was an open wound. Patient stated that he had his clean the foot for him. He is here for an evaluation. Patient reports that he takes metformin for his diabetes and is compliant. He denies fever, chills, shortness of breath, chest pain, tingling, numbness, nausea, vomiting, diarrhea, and abdominal pain. Course of hospitalization: Podiatry consultation was obtained. Patient was taken to the OR on three different occasions for I and D of the patient's osteomyelitis. Infectious Disease consultation was placed. Patient was started on empiric antibiotic therapy with both Zosyn and vancomycin. Given cultures, patient was antibiotic therapy was discontinued, deescalated to Unasyn. Diabetic education was given to the patient given he was confirmed diabetes mellitus. He was started on regular insulin sliding scale as well as Lantus, titrated to 18 units daily. Patient has been cleared for discharge by both Infectious Disease as well as Podiatry. He will be continued on continuous infusion of Unasyn, to be monitored by Dr. Valentin Alonso, infectious disease. Patient will also be discharged home with home health services for wound care had assistance with monitoring patient was blood sugars as well as medication administration. Patient was agreeable with discharge plan. All questions answered. Physical examination General: Alert and Oriented x3. No acute distress. Well-nourished. Eyes: EOMI. Anicteric. HENT: Moist mucous membranes. Lungs: Clear to auscultation bilaterally. No accessory muscle use. Cardiovascular: Regular rate and rhythm. No murmur. No JVD. Abdomen: Soft, non-tender and non-distended. No palpable masses. Extremities: No edema. Non-tender. Skin: No rashes or lesions. Warm. Neurologic: No focal neurological deficits. CN II-XII grossly intact, but not individually tested. Psychiatric: Cooperative. Appropriate mood and affect. Total time spent with patient discussing and formulating plan of care: 35 minutes. This medical document was created using an electronic medical record system with [employer] system. Although this document has been carefully reviewed, there may still be some phonetic and typographical errors. These areas are purely typographical due to imperfections of the software programs, and do not reflect any compromise in the patient's medical care. Consults/Reason for consult Infectious disease: Osteomyelitis Podiatry: Osteomyelitis Condition at Discharge: Good Final Diagnosis/Problems List Osteomyelitis to the right Secondary Diagnosis: -right foot osteomyelitis -diabetes mellitus, uncontrolled with hemoglobin A1c 11.8 -rule out peripheral arterial disease -peripheral neuropathy Discharge Disposition: Home with Health Services Discharge Instruct/Medications Diet: Consistent carbohydrate Activity: See Comment Activity comment: Non weight-bearing to right foot Follow Up/Referral: Podiatry in 1-2 weeks PCP in 1-2 weeks Infectious disease doctor in 2-3 weeks Medications: Lantus 18 units q.h.s. IV antibiotic therapy per Infectious Disease doctor. 36 Discharge Statement: "Patient was advised to return to the ER or call 911 if any headaches, dizziness, shortness of breath, chest pain, abdominal pain, bleeding, fevers, or worsening of medical condition. Patient was counseled about treatment plan, medications, possible side effects, patientverbalized understanding. All questions were answered to the best of my ability. This discharge took greater then 30 minutes in planning, reviewing documentation, counseling the patient, and discussing with other team members." DME: Diagnosis: Osteomyelitis of the right foot. ASSESSMENT ASSESSMENT Assessment Osteomyelitis to the right Date of Service: Sep 16, 2024 Billing Provider: MONSE SHELTON NP Common Visit Codes: [id number] DISCH DAY >30min MONSE SHELTON NP Sep 16, 2024 13:20
[2024-09-16 17:09] VITALS: BP_SYST 133; BP_SYST 93; BP_DIAS 63; BP_DIAS 73; PULSE 51; RESP 16; TEMP 97.6; O2SAT 96
[2024-09-16 21:00] VITALS: BP 111/62; PULSE 61; RESP 15; TEMP 98.5; O2SAT 95
--- NOTE | 2024-09-16 23:46 | DVHPN2 ---
Consult Progress Note Date Seen: Sep 15, 2024 Subjective Patient reports: Feels better (no fever or chills) Objective vital signs Vital Sign Date Time Temp Pulse Resp B/P (MAP) Pulse Ox O2 Delivery O2 Flow Rate FiO2 09/16/24 21:00 98.5 61 15 111/62 (78) 95 98.5 09/16/24 20:00 Room Air* 0 21 Total Intake and Output 09/15/24 09/15/24 09/16/24 15:00 23:00 07:00 Intake Total 120 ml 100 ml 350 ml Output Total 300 ml 300 ml Balance 120 ml -200 ml 50 ml medications Current Medications Medications Dose Ordered Sig/Ruby Route Start Time Stop Time Status Last Admin Dose Admin Vancomycin HCl 0 ml @ 0 mls/hr UD IV 09/08/24 09:00 Cancel Acetaminophen/ Hydrocodone Bitart 1 tab Q4HP PRN PO 09/08/24 13:00 09/12/24 16:30 1 TAB Docusate Sodium 100 mg BIDPRN PRN PO 09/08/24 13:00 Acetaminophen 650 mg Q6HP PRN PO 09/08/24 13:00 Diagnostic Test (Pha) 1 strip ACHS 09/08/24 17:00 09/16/24 22:01 1 STRIP Insulin Human Regular HS SC 09/08/24 22:00 09/16/24 22:01 4 UNITS Insulin Human Regular AC SC 09/08/24 17:00 09/16/24 16:44 3 UNITS Dextrose 50 ml UD PRN IV 09/08/24 13:00 Insulin Glargine 18 units HS SC 09/13/24 22:00 09/16/24 22:02 18 UNITS Sodium Chloride 10 ml QSHIFT@10,22 IV 09/13/24 22:00 09/16/24 21:58 10 ML Ampicillin Sodium/ Sulbactam Sodium 3 gm/Sodium Chloride 100 ml @ 100 mls/hr Q6H IV 09/14/24 22:15 09/16/24 21:58 100 MLS/HR PHYSICAL EXAM: - GENERAL: Alert and oriented x 3. No acute distress. Well-nourished. - EYES: EOMI. Anicteric. - HENT: Moist mucous membranes. No scleral icterus. No cervical lymphadenopathy. - LUNGS: Clear to auscultation bilaterally. No accessory muscle use. - CARDIOVASCULAR: Regular rate and rhythm. No murmur. No JVD. - ABDOMEN: Soft, non-tender and non-distended. No palpable masses. - EXTREMITIES: No edema. Non-tender.?SKIN: No rashes or lesions. Warm. - NEUROLOGIC: No focal neurological deficits. CN II-XII grossly intact, but not individually tested - PSYCHIATRIC: Cooperative. Appropriate mood and affect. - laboratory and microbiology Laboratory Tests 09/15/24 05:44 Test 09/15/24 05:44 Range/Units Serum Glucose 138 H 74-106 mg/dL Problem List/Assessment/Plan Problem List/Assessment/Plan ID Problem List: - Diabetic foot ulcer - Osteomyelitis - Gas gangrene - Poorly controlled diabetes mellitus type 2 - Gas-forming bacterial infection Assessment This is a 69 y.o. male with a past medical history of diabetes mellitus type 2 managed with metformin, who presents with a right foot diabetic ulcer exhibiting signs of infection. The patient reports that the ulcer had been closed for a while but reopened two weeks ago on the plantar side of his heel with drainage and pus. He denies fevers, chills, diarrhea, or rash. Vital signs are stable with a temperature of 97.4F, pulse of 94 bpm, respiratory rate of 16 breaths per minute, blood pressure of 109/68 mmHg, and SpO2 of 97% on room air. Physical exam reveals the right foot is entirely erythematous with drainage on the right heel. Laboratory studies show leukocytosis with WBC 17.3, elevated CRP at 14.45, lactic acid 1.8, creatinine 1.1. Hemoglobin is 14.1, and platelets are 401. HbA1c is elevated at 11.8%, indicating poorly controlled diabetes. CT of the right lower extremity shows findings suspicious for osteomyelitis of the great toe proximal and distal phalanges, and extensive subcutaneous edema on the plantar forefoot about the first and second toes consistent with gas-forming bacterial infection plus gas gangrene. Superficial wound cultures are growing gram-negative rods, gram-positive rods, and viridans group B streptococci. Dr. Mensah performed a right foot debridement for gas gangrene with incision and drainage of an abscess at the level of the bone. Deep cultures were obtained during the procedure. 09/12: white count is down to 12.2 . His superficial wound cultures is growing klebsiella oxytosa that is chinchilla sensitive and during surgery today patient underwent debridement again to the bone and wound was kept open 09/13: whitecount is 12.1 09/14: Whitecount is 10.7 . Cultures are growing MSSA Klebsiella Plan: - podiatry plans to Close the wound with dermal graft application on Sunday - recommend piccline placement for planning 6 weeks of IV antibiotic therapy determined by operative culture results - follow up on operative cultures - continue Unasyn via piccline for 6 weeks - follow up with infectious disease in 4 weeks - Aim to improve diabetic control with a goal of keeping blood sugars under 180 mg/dL to enhance wound healing; will coordinate with endocrinology for management. - Follow up on blood cultures and deep wound cultures to tailor antibiotic therapy appropriately. - Agree with Podiatry evaluation for any additional debridement as necessary. - Recommend close outpatient follow-up with primary care physician to manage diabetes and prevent future complications. Plan discussed with: Patient Dietary Evaluation Review Comments: 1) Advance pt diet when medically feasible to a CCHO 60g diet 2) Continue current plan of care Expected Outcomes/Goals: F/U in 3-5 days BLANCA SCHWARTZ MD Sep 16, 2024 23:46
--- NOTE | 2024-09-16 23:46 | DVHPN2 ---
Consult Progress Note Date Seen: Sep 16, 2024 Subjective Patient reports: Feels better (no diarrhea or rash) Objective vital signs Vital Sign Date Time Temp Pulse Resp B/P (MAP) Pulse Ox O2 Delivery O2 Flow Rate FiO2 09/16/24 21:00 98.5 61 15 111/62 (78) 95 98.5 09/16/24 20:00 Room Air* 0 21 Total Intake and Output 09/15/24 09/15/24 09/16/24 15:00 23:00 07:00 Intake Total 120 ml 100 ml 350 ml Output Total 300 ml 300 ml Balance 120 ml -200 ml 50 ml medications Current Medications Medications Dose Ordered Sig/Ruby Route Start Time Stop Time Status Last Admin Dose Admin Vancomycin HCl 0 ml @ 0 mls/hr UD IV 09/08/24 09:00 Cancel Acetaminophen/ Hydrocodone Bitart 1 tab Q4HP PRN PO 09/08/24 13:00 09/12/24 16:30 1 TAB Docusate Sodium 100 mg BIDPRN PRN PO 09/08/24 13:00 Acetaminophen 650 mg Q6HP PRN PO 09/08/24 13:00 Diagnostic Test (Pha) 1 strip ACHS 09/08/24 17:00 09/16/24 22:01 1 STRIP Insulin Human Regular HS SC 09/08/24 22:00 09/16/24 22:01 4 UNITS Insulin Human Regular AC SC 09/08/24 17:00 09/16/24 16:44 3 UNITS Dextrose 50 ml UD PRN IV 09/08/24 13:00 Insulin Glargine 18 units HS SC 09/13/24 22:00 09/16/24 22:02 18 UNITS Sodium Chloride 10 ml QSHIFT@10,22 IV 09/13/24 22:00 09/16/24 21:58 10 ML Ampicillin Sodium/ Sulbactam Sodium 3 gm/Sodium Chloride 100 ml @ 100 mls/hr Q6H IV 09/14/24 22:15 09/16/24 21:58 100 MLS/HR PHYSICAL EXAM: - GENERAL: Alert and oriented x 3. No acute distress. Well-nourished. - EYES: EOMI. Anicteric. - HENT: Moist mucous membranes. No scleral icterus. No cervical lymphadenopathy. - LUNGS: Clear to auscultation bilaterally. No accessory muscle use. - CARDIOVASCULAR: Regular rate and rhythm. No murmur. No JVD. - ABDOMEN: Soft, non-tender and non-distended. No palpable masses. - EXTREMITIES: No edema. Non-tender.?SKIN: No rashes or lesions. Warm. - NEUROLOGIC: No focal neurological deficits. CN II-XII grossly intact, but not individually tested - PSYCHIATRIC: Cooperative. Appropriate mood and affect. - laboratory and microbiology Laboratory Tests 09/15/24 05:44 Test 09/15/24 05:44 Range/Units Serum Glucose 138 H 74-106 mg/dL Problem List/Assessment/Plan Problem List/Assessment/Plan ID Problem List: - Diabetic foot ulcer - Osteomyelitis - Gas gangrene - Poorly controlled diabetes mellitus type 2 - Gas-forming bacterial infection Assessment This is a 69 y.o. male with a past medical history of diabetes mellitus type 2 managed with metformin, who presents with a right foot diabetic ulcer exhibiting signs of infection. The patient reports that the ulcer had been closed for a while but reopened two weeks ago on the plantar side of his heel with drainage and pus. He denies fevers, chills, diarrhea, or rash. Vital signs are stable with a temperature of 97.4F, pulse of 94 bpm, respiratory rate of 16 breaths per minute, blood pressure of 109/68 mmHg, and SpO2 of 97% on room air. Physical exam reveals the right foot is entirely erythematous with drainage on the right heel. Laboratory studies show leukocytosis with WBC 17.3, elevated CRP at 14.45, lactic acid 1.8, creatinine 1.1. Hemoglobin is 14.1, and platelets are 401. HbA1c is elevated at 11.8%, indicating poorly controlled diabetes. CT of the right lower extremity shows findings suspicious for osteomyelitis of the great toe proximal and distal phalanges, and extensive subcutaneous edema on the plantar forefoot about the first and second toes consistent with gas-forming bacterial infection plus gas gangrene. Superficial wound cultures are growing gram-negative rods, gram-positive rods, and viridans group B streptococci. Dr. Mensah performed a right foot debridement for gas gangrene with incision and drainage of an abscess at the level of the bone. Deep cultures were obtained during the procedure. 09/12: white count is down to 12.2 . His superficial wound cultures is growing klebsiella oxytosa that is chinchilla sensitive and during surgery today patient underwent debridement again to the bone and wound was kept open 09/13: whitecount is 12.1 09/14: Whitecount is 10.7 . Cultures are growing MSSA Klebsiella 09/15: sp Close the wound with dermal graft application Plan: - recommend piccline placement for planning 6 weeks of IV antibiotic therapy determined by operative culture results - follow up on operative cultures - Start Unasyn via piccline for 6 weeks - follow up with infectious disease in 4 weeks - Aim to improve diabetic control with a goal of keeping blood sugars under 180 mg/dL to enhance wound healing; will coordinate with endocrinology for management. - Follow up on blood cultures and deep wound cultures to tailor antibiotic therapy appropriately. - Agree with Podiatry evaluation for any additional debridement as necessary. - Recommend close outpatient follow-up with primary care physician to manage diabetes and prevent future complications. Plan discussed with: Patient Dietary Evaluation Review Comments: 1) Advance pt diet when medically feasible to a CCHO 60g diet 2) Continue current plan of care Expected Outcomes/Goals: F/U in 3-5 days BLANCA SCHWARTZ MD Sep 16, 2024 23:46
[2024-09-17 01:00] VITALS: BP 119/66; PULSE 64; RESP 17; TEMP 98.2; O2SAT 96
[2024-09-17 05:00] VITALS: BP 112/64; PULSE 62; RESP 17; TEMP 97.9; O2SAT 94
--- NOTE | 2024-09-17 08:44 | DVHPN2 ---
Subjective started tube feeding, pain management. NPO but ice chips until cleared by TUBE BUFFER Reviewed: Care Plan, H&P, Labs, Medications Changes from previous H/P or p: No Changes General: Per HPI Eyes: No Pain, No Vision change, No Conjunctivae inflammation, No Eyelid inflammation, No Other, No Redness ENT: No Ear pain, No Ear discharge, No Nose pain, No Nose discharge, No Nose congestion, No Mouth pain, No Mouth swelling, No Throat pain, No Throat swelling, No Other Cardiovascular: No Chest Pain, No Palpitations, No Orthopnea, No Paroxysmal Noc. Dyspnea, No Edema, No Lt Headedness, No Other Respiratory: No Cough, No Dry, No Shortness of breath, No SOB with excertion, No Wheezing, No Hemoptysis, No Pleuritic Pain, No Sputum, No Other Gastrointestinal: No Nausea, No Vomiting, No Abdominal Pain, No Diarrhea, No Constipation, No Melena, No Hematochezia, No Other Genitourinary: No Dysuria, No Frequency, No Incontinence, No Hematuria, No Retention, No Other Musculoskeletal: No other, No neck pain, No shoulder pain, No arm pain, No back pain, No hand pain, No leg pain; foot pain Skin: No Rash, No Lesions, No Jaundice, No Bruising; Other (erythema) Objective Vitals Vital Signs Date Time Temp Pulse Resp B/P (MAP) Pulse Ox O2 Delivery O2 Flow Rate FiO2 09/17/24 05:00 97.9 62 17 112/64 (80) 94 97.9 09/16/24 20:00 Room Air* 0 21 Intake/Output Intake and Output 09/17/24 07:00 Intake Total 1520 ml Output Total 1550 ml Balance -30 ml Intake Oral 1120 ml IV Total 400 ml Output Urine Total 1550 ml # Bowel Movements 1 General Appearance: Alert, Oriented X3, Cooperative, No acute distress HEENT: Atraumatic, PERRLA Lungs: Clear to auscultation, Normal air movement Cardiovascular: Normal S1, Normal S2 Abdomen: Normal bowel sounds, Soft, No tenderness, No hepatospenomegaly Musculoskeletal: Normal sensory function, Normal motor function Extremities: Other (rt le dressing in place) Neuro: Normal gait, Normal speech Psych/Mental Status: Mental status NL, Mood NL Medications Current Medications Medications Dose Ordered Sig/Ruby Route Start Time Stop Time Status Last Admin Dose Admin Vancomycin HCl 0 ml @ 0 mls/hr UD IV 09/08/24 09:00 Cancel Acetaminophen/ Hydrocodone Bitart 1 tab Q4HP PRN PO 09/08/24 13:00 09/12/24 16:30 1 TAB Docusate Sodium 100 mg BIDPRN PRN PO 09/08/24 13:00 Acetaminophen 650 mg Q6HP PRN PO 09/08/24 13:00 Diagnostic Test (Pha) 1 strip ACHS 09/08/24 17:00 09/17/24 06:56 1 STRIP Insulin Human Regular HS SC 09/08/24 22:00 09/16/24 22:01 4 UNITS Insulin Human Regular AC SC 09/08/24 17:00 09/17/24 06:57 3 UNITS Dextrose 50 ml UD PRN IV 09/08/24 13:00 Insulin Glargine 18 units HS SC 09/13/24 22:00 09/16/24 22:02 18 UNITS Sodium Chloride 10 ml QSHIFT@10,22 IV 09/13/24 22:00 09/16/24 21:58 10 ML Ampicillin Sodium/ Sulbactam Sodium 3 gm/Sodium Chloride 100 ml @ 100 mls/hr Q6H IV 09/14/24 22:15 09/17/24 04:26 100 MLS/HR Laboratory Results Laboratory Tests 09/15/24 05:44 Urinalysis Test 09/08/24 09:21 Urine Color Light-yellow (Yellow) Urine Clarity Clear (Clear) Urine pH 6.5 (5.0-9.0) Urine Specific [place] 1.050 (1.001-1.035) Urine Protein Negative (Negative) Urine Ketones Trace (Negative) Urine Blood Negative /uL (Negative) Urine Nitrite Negative (Negative) Urine Bilirubin Negative (Negative) Urine Urobilinogen Normal mg/dL (Negative) Urine Leukocyte Esterase Negative /uL (Negative) Urine RBC 1 /hpf (0 - 3) Urine WBC <1 /hpf (0 - 3) Urine Squamous Epithelial Cells Few /hpf (<5) Urine Bacteria None seen /hpf (None Seen) Urine Mucus Few (None Seen) Urine Glucose 4+ mg/dL (Normal) H Microbiology Microbiology Date/Time Source Procedure Growth Status 09/10/24 16:11 Foot Right Gram Stain - Final Complete 09/10/24 16:11 Foot Right Anaerobic Culture - Final Complete 09/10/24 16:11 Aerobic Culture - Final Klebsiella oxytoca Staphylococcus aureus Complete 09/08/24 09:14 Blood Blood Culture - Final NO GROWTH AFTER 5 DAYS OF INCUBATION. Complete Assessment/Plan Assessment/Plan Impression: -right foot osteomyelitis -diabetes mellitus, uncontrolled with hemoglobin A1c 11.8 -rule out peripheral arterial disease -peripheral neuropathy Plan: -events: Patient to OR today for closure of his wound. Medically cleared by Podiatry to be discharged home. Infectious disease consultation recommendations reviewed with orders placed with social media marketing manager. -podiatry consultation -regular insulin sliding scale , add Lantus 15 units q.h.s. -wound and blood culture : Pending -wound care per podiatry/wound care nurse -continue Unasyn -patient was discharged, pending walker and IV abx initiation, likely 09/18 Plan discussed with: Patient Date of Service: Sep 17, 2024 Billing Provider: ISABEL JUSTICE MD Common Visit Codes: [id number] INP/OBS CARE(MOD) ISABEL JUSTICE MD Sep 17, 2024 08:44
[2024-09-17 09:00] VITALS: BP 125/62; PULSE 60; RESP 18; TEMP 98.1; O2SAT 97
[2024-09-17 13:00] VITALS: BP 111/61; PULSE 69; RESP 18; TEMP 98.2; O2SAT 96
[2024-09-17 17:00] VITALS: BP 101/66; PULSE 80; RESP 16; TEMP 98.1; O2SAT 96
[2024-09-17 20:00] VITALS: BP 113/60; PULSE 63; RESP 15; TEMP 97.6; O2SAT 94
[2024-09-18 01:00] VITALS: BP 101/56; PULSE 64; RESP 14; TEMP 97.3; O2SAT 96
[2024-09-18 05:00] VITALS: BP 112/66; PULSE 55; RESP 18; TEMP 98; O2SAT 97
[2024-09-18 09:00] VITALS: BP 111/48; PULSE 60; RESP 17; TEMP 97.7; O2SAT 96
--- NOTE | 2024-09-18 10:42 | DVHPN2 ---
Subjective Denies any new symptoms. Reviewed: Care Plan, H&P, Labs, Medications Changes from previous H/P or p: No Changes General: Per HPI Eyes: No Pain, No Vision change, No Conjunctivae inflammation, No Eyelid inflammation, No Other, No Redness ENT: No Ear pain, No Ear discharge, No Nose pain, No Nose discharge, No Nose congestion, No Mouth pain, No Mouth swelling, No Throat pain, No Throat swelling, No Other Cardiovascular: No Chest Pain, No Palpitations, No Orthopnea, No Paroxysmal Noc. Dyspnea, No Edema, No Lt Headedness, No Other Respiratory: No Cough, No Dry, No Shortness of breath, No SOB with excertion, No Wheezing, No Hemoptysis, No Pleuritic Pain, No Sputum, No Other Gastrointestinal: No Nausea, No Vomiting, No Abdominal Pain, No Diarrhea, No Constipation, No Melena, No Hematochezia, No Other Genitourinary: No Dysuria, No Frequency, No Incontinence, No Hematuria, No Retention, No Other Musculoskeletal: No other, No neck pain, No shoulder pain, No arm pain, No back pain, No hand pain, No leg pain; foot pain Skin: No Rash, No Lesions, No Jaundice, No Bruising; Other (erythema) Objective Vitals Vital Signs Date Time Temp Pulse Resp B/P (MAP) Pulse Ox O2 Delivery O2 Flow Rate FiO2 09/18/24 09:00 97.7 60 17 111/48 (69) 96 97.7 09/17/24 20:00 Room Air* 0 21 Intake/Output Intake and Output 09/18/24 07:00 Intake Total 1450 ml Output Total 2600 ml Balance -1150 ml Intake Oral 1050 ml IV Total 400 ml Output Urine Total 2600 ml General Appearance: Alert, Oriented X3, Cooperative, No acute distress HEENT: Atraumatic, PERRLA Lungs: Clear to auscultation, Normal air movement Cardiovascular: Normal S1, Normal S2 Abdomen: Normal bowel sounds, Soft, No tenderness, No hepatospenomegaly Musculoskeletal: Normal sensory function, Normal motor function Extremities: Other (rt le dressing in place) Neuro: Normal gait, Normal speech Psych/Mental Status: Mental status NL, Mood NL Medications Current Medications Medications Dose Ordered Sig/Ruby Route Start Time Stop Time Status Last Admin Dose Admin Vancomycin HCl 0 ml @ 0 mls/hr UD IV 09/08/24 09:00 Cancel Docusate Sodium 100 mg BIDPRN PRN PO 09/08/24 13:00 Acetaminophen 650 mg Q6HP PRN PO 09/08/24 13:00 Diagnostic Test (Pha) 1 strip ACHS 09/08/24 17:00 09/18/24 06:37 1 STRIP Insulin Human Regular HS SC 09/08/24 22:00 09/17/24 22:19 6 UNITS Insulin Human Regular AC SC 09/08/24 17:00 09/17/24 17:52 6 UNITS Dextrose 50 ml UD PRN IV 09/08/24 13:00 Insulin Glargine 18 units HS SC 09/13/24 22:00 09/17/24 22:18 18 UNITS Sodium Chloride 10 ml QSHIFT@ IV 09/13/24 22:00 09/18/24 09:15 10 ML Ampicillin Sodium/ Sulbactam Sodium 3 gm/Sodium Chloride 100 ml @ 100 mls/hr Q6H IV 09/14/24 22:15 09/18/24 04:28 100 MLS/HR Laboratory Results Laboratory Tests 09/15/24 05:44 Urinalysis Test 09/08/24 09:21 Urine Color Light-yellow (Yellow) Urine Clarity Clear (Clear) Urine pH 6.5 (5.0-9.0) Urine Specific [place] 1.050 (1.001-1.035) Urine Protein Negative (Negative) Urine Ketones Trace (Negative) Urine Blood Negative /uL (Negative) Urine Nitrite Negative (Negative) Urine Bilirubin Negative (Negative) Urine Urobilinogen Normal mg/dL (Negative) Urine Leukocyte Esterase Negative /uL (Negative) Urine RBC 1 /hpf (0 - 3) Urine WBC <1 /hpf (0 - 3) Urine Squamous Epithelial Cells Few /hpf (<5) Urine Bacteria None seen /hpf (None Seen) Urine Mucus Few (None Seen) Urine Glucose 4+ mg/dL (Normal) H Microbiology Microbiology Date/Time Source Procedure Growth Status 09/10/24 16:11 Foot Right Gram Stain - Final Complete 09/10/24 16:11 Foot Right Anaerobic Culture - Final Complete 09/10/24 16:11 Aerobic Culture - Final Klebsiella oxytoca Staphylococcus aureus Complete 09/08/24 09:14 Blood Blood Culture - Final NO GROWTH AFTER 5 DAYS OF INCUBATION. Complete Assessment/Plan Assessment/Plan Impression: -right foot osteomyelitis -diabetes mellitus, uncontrolled with hemoglobin A1c 11.8 -rule out peripheral arterial disease -peripheral neuropathy Plan: -events: Patient was discharged on 09/16/24. Patient pending DME and IV antibiotic therapy which held his discharge. -podiatry consultation -regular insulin sliding scale , add Lantus 15 units q.h.s. -wound and blood culture : Pending -wound care per podiatry/wound care nurse -continue Unasyn Discharged home once patient IV antibiotics have been established. Total time spent with patient discussing and formulating plan of care: 35 minutes. This medical document was created using an electronic medical record system with [employer] dictation system. Although this document has been carefully reviewed, there may still be some phonetic and typographical errors. These areas are purely typographical due to imperfections of the software programs, and do not reflect any compromise in the patient's medical care. Plan discussed with: Patient, Other (RN) Date of Service: Sep 18, 2024 Billing Provider: MONSE SHELTON NP Common Visit Codes: [id number] INP/OBS CARE(HIGH) MONSE SHELTON NP Sep 18, 2024 10:42
[2024-09-18 12:37] VITALS: BP 118/63; PULSE 61; RESP 17; TEMP 97.6; O2SAT 98
[2024-09-18 16:52] VITALS: BP 127/71; PULSE 65; RESP 17; TEMP 97.7; O2SAT 95
[2024-09-18 21:03] VITALS: BP 111/68; PULSE 66; RESP 15; TEMP 98; O2SAT 94
--- NOTE | 2024-09-18 23:24 | DVHPN2 ---
Consult Progress Note Date Seen: Sep 17, 2024 Subjective Patient reports: Feels better (no fevers ) Objective vital signs Vital Sign Date Time Temp Pulse Resp B/P (MAP) Pulse Ox O2 Delivery O2 Flow Rate FiO2 09/18/24 21:03 98.0 66 15 111/68 (82) 94 98.0 09/18/24 08:30 Room Air* 0 21 Total Intake and Output 09/17/24 09/17/24 09/18/24 15:00 23:00 07:00 Intake Total 100 ml 650 ml 700 ml Output Total 2150 ml 450 ml Balance 100 ml -1500 ml 250 ml medications Current Medications Medications Dose Ordered Sig/Ruby Route Start Time Stop Time Status Last Admin Dose Admin Vancomycin HCl 0 ml @ 0 mls/hr UD IV 09/08/24 09:00 Cancel Docusate Sodium 100 mg BIDPRN PRN PO 09/08/24 13:00 Acetaminophen 650 mg Q6HP PRN PO 09/08/24 13:00 Diagnostic Test (Pha) 1 strip ACHS 09/08/24 17:00 09/18/24 22:00 1 STRIP Insulin Human Regular HS SC 09/08/24 22:00 09/18/24 22:40 4 UNITS Insulin Human Regular AC SC 09/08/24 17:00 09/18/24 17:00 6 UNITS Dextrose 50 ml UD PRN IV 09/08/24 13:00 Insulin Glargine 18 units HS SC 09/13/24 22:00 09/18/24 22:00 18 UNITS Sodium Chloride 10 ml QSHIFT@10,22 IV 09/13/24 22:00 09/18/24 22:00 10 ML Ampicillin Sodium/ Sulbactam Sodium 3 gm/Sodium Chloride 100 ml @ 100 mls/hr Q6H IV 09/14/24 22:15 09/18/24 22:41 100 MLS/HR PHYSICAL EXAM: - GENERAL: Alert and oriented x 3. No acute distress. Well-nourished. - EYES: EOMI. Anicteric. - HENT: Moist mucous membranes. No scleral icterus. No cervical lymphadenopathy. - LUNGS: Clear to auscultation bilaterally. No accessory muscle use. - CARDIOVASCULAR: Regular rate and rhythm. No murmur. No JVD. - ABDOMEN: Soft, non-tender and non-distended. No palpable masses. - EXTREMITIES: No edema. Non-tender.?SKIN: No rashes or lesions. Warm. - NEUROLOGIC: No focal neurological deficits. CN II-XII grossly intact, but not individually tested - PSYCHIATRIC: Cooperative. Appropriate mood and affect. - laboratory and microbiology Laboratory Tests 09/15/24 05:44 Test 09/15/24 05:44 Range/Units Serum Glucose 138 H 74-106 mg/dL Problem List/Assessment/Plan Problem List/Assessment/Plan ID Problem List: - Diabetic foot ulcer - Osteomyelitis - Gas gangrene - Poorly controlled diabetes mellitus type 2 - Gas-forming bacterial infection Assessment This is a 69 y.o. male with a past medical history of diabetes mellitus type 2 managed with metformin, who presents with a right foot diabetic ulcer exhibiting signs of infection. The patient reports that the ulcer had been closed for a while but reopened two weeks ago on the plantar side of his heel with drainage and pus. He denies fevers, chills, diarrhea, or rash. Vital signs are stable with a temperature of 97.4F, pulse of 94 bpm, respiratory rate of 16 breaths per minute, blood pressure of 109/68 mmHg, and SpO2 of 97% on room air. Physical exam reveals the right foot is entirely erythematous with drainage on the right heel. Laboratory studies show leukocytosis with WBC 17.3, elevated CRP at 14.45, lactic acid 1.8, creatinine 1.1. Hemoglobin is 14.1, and platelets are 401. HbA1c is elevated at 11.8%, indicating poorly controlled diabetes. CT of the right lower extremity shows findings suspicious for osteomyelitis of the great toe proximal and distal phalanges, and extensive subcutaneous edema on the plantar forefoot about the first and second toes consistent with gas-forming bacterial infection plus gas gangrene. Superficial wound cultures are growing gram-negative rods, gram-positive rods, and viridans group B streptococci. Dr. Mensah performed a right foot debridement for gas gangrene with incision and drainage of an abscess at the level of the bone. Deep cultures were obtained during the procedure. 09/12: white count is down to 12.2 . His superficial wound cultures is growing klebsiella oxytosa that is chinchilla sensitive and during surgery today patient underwent debridement again to the bone and wound was kept open 09/13: whitecount is 12.1 09/14: Whitecount is 10.7 . Cultures are growing MSSA Klebsiella 09/15: spClose the wound with dermal graft application on Plan: - recommend piccline placement for planning 6 weeks of IV antibiotic therapy determined by operative culture results - follow up on operative cultures - continue Unasyn via piccline for 6 weeks - follow up with infectious disease in 4 weeks - Aim to improve diabetic control with a goal of keeping blood sugars under 180 mg/dL to enhance wound healing; will coordinate with endocrinology for management. - Follow up on blood cultures and deep wound cultures to tailor antibiotic therapy appropriately. - Agree with Podiatry evaluation for any additional debridement as necessary. - Recommend close outpatient follow-up with primary care physician to manage diabetes and prevent future complications. Plan discussed with: Patient Dietary Evaluation Review Comments: 1) Advance pt diet when medically feasible [facility] 2) Continue current plan of care Expected Outcomes/Goals: F/U in 3-5 days BLANCA SCHWARTZ MD Sep 18, 2024 23:24
[2024-09-19] VITALS (7 sets, daily range): BP systolic 106–127; BP diastolic 52–93; PULSE 54–69; RESP 16–20; TEMP 97.8–98.6; O2SAT 95–98
--- NOTE | 2024-09-19 12:32 | DVHPN2 ---
Subjective Denies any new symptoms. Reviewed: Care Plan, H&P, Labs, Medications Changes from previous H/P or p: No Changes General: Per HPI Eyes: No Pain, No Vision change, No Conjunctivae inflammation, No Eyelid inflammation, No Other, No Redness ENT: No Ear pain, No Ear discharge, No Nose pain, No Nose discharge, No Nose congestion, No Mouth pain, No Mouth swelling, No Throat pain, No Throat swelling, No Other Cardiovascular: No Chest Pain, No Palpitations, No Orthopnea, No Paroxysmal Noc. Dyspnea, No Edema, No Lt Headedness, No Other Respiratory: No Cough, No Dry, No Shortness of breath, No SOB with excertion, No Wheezing, No Hemoptysis, No Pleuritic Pain, No Sputum, No Other Gastrointestinal: No Nausea, No Vomiting, No Abdominal Pain, No Diarrhea, No Constipation, No Melena, No Hematochezia, No Other Genitourinary: No Dysuria, No Frequency, No Incontinence, No Hematuria, No Retention, No Other Musculoskeletal: No other, No neck pain, No shoulder pain, No arm pain, No back pain, No hand pain, No leg pain; foot pain Skin: No Rash, No Lesions, No Jaundice, No Bruising; Other (erythema) Objective Vitals Vital Signs Date Time Temp Pulse Resp B/P (MAP) Pulse Ox O2 Delivery O2 Flow Rate FiO2 09/19/24 09:00 97.9 59 16 117/69 (85) 98 97.9 09/18/24 20:00 Room Air* 0 21 Intake/Output Intake and Output 09/19/24 07:00 Intake Total 1590 ml Balance 1590 ml Intake Oral 1290 ml IV Total 300 ml # Voids 1 # Bowel Movements 2 General Appearance: Alert, Oriented X3, Cooperative, No acute distress HEENT: Atraumatic, PERRLA Lungs: Clear to auscultation, Normal air movement Cardiovascular: Normal S1, Normal S2 Abdomen: Normal bowel sounds, Soft, No tenderness, No hepatospenomegaly Musculoskeletal: Normal sensory function, Normal motor function Extremities: Other (rt le dressing in place) Neuro: Normal gait, Normal speech Psych/Mental Status: Mental status NL, Mood NL Medications Current Medications Medications Dose Ordered Sig/Ruby Route Start Time Stop Time Status Last Admin Dose Admin Vancomycin HCl 0 ml @ 0 mls/hr UD IV 09/08/24 09:00 Cancel Docusate Sodium 100 mg BIDPRN PRN PO 09/08/24 13:00 Acetaminophen 650 mg Q6HP PRN PO 09/08/24 13:00 Diagnostic Test (Pha) 1 strip ACHS 09/08/24 17:00 09/19/24 06:39 1 STRIP Insulin Human Regular HS SC 09/08/24 22:00 09/18/24 22:40 4 UNITS Insulin Human Regular AC SC 09/08/24 17:00 09/19/24 06:40 2 UNITS Dextrose 50 ml UD PRN IV 09/08/24 13:00 Insulin Glargine 18 units HS SC 09/13/24 22:00 09/18/24 22:00 18 UNITS Sodium Chloride 10 ml QSHIFT@ IV 09/13/24 22:00 09/19/24 10:00 10 ML Ampicillin Sodium/ Sulbactam Sodium 3 gm/Sodium Chloride 100 ml @ 100 mls/hr Q6H IV 09/14/24 22:15 09/19/24 10:47 100 MLS/HR Laboratory Results Laboratory Tests 09/15/24 05:44 Urinalysis Test 09/08/24 09:21 Urine Color Light-yellow (Yellow) Urine Clarity Clear (Clear) Urine pH 6.5 (5.0-9.0) Urine Specific [place] 1.050 (1.001-1.035) Urine Protein Negative (Negative) Urine Ketones Trace (Negative) Urine Blood Negative /uL (Negative) Urine Nitrite Negative (Negative) Urine Bilirubin Negative (Negative) Urine Urobilinogen Normal mg/dL (Negative) Urine Leukocyte Esterase Negative /uL (Negative) Urine RBC 1 /hpf (0 - 3) Urine WBC <1 /hpf (0 - 3) Urine Squamous Epithelial Cells Few /hpf (<5) Urine Bacteria None seen /hpf (None Seen) Urine Mucus Few (None Seen) Urine Glucose 4+ mg/dL (Normal) H Microbiology Microbiology Date/Time Source Procedure Growth Status 09/10/24 16:11 Foot Right Gram Stain - Final Complete 09/10/24 16:11 Foot Right Anaerobic Culture - Final Complete 09/10/24 16:11 Aerobic Culture - Final Klebsiella oxytoca Staphylococcus aureus Complete 09/08/24 09:14 Blood Blood Culture - Final NO GROWTH AFTER 5 DAYS OF INCUBATION. Complete Labs and/or images reviewed: Labs reviewed by me, Image(s) reviewed by me Assessment/Plan Assessment/Plan Impression: -right foot osteomyelitis -diabetes mellitus, uncontrolled with hemoglobin A1c 11.8 -rule out peripheral arterial disease -peripheral neuropathy Plan: -events: Patient was discharged on 09/16/24. Patient pending DME and IV antibiotic therapy which held his discharge. Change since 09/18/2024. Apparently, patient has been approved for IV antibiotic therapy by insurance, but is currently pending acceptance for home health services with wound care -podiatry consultation -regular insulin sliding scale , add Lantus 15 units q.h.s. -wound and blood culture : Pending -wound care per podiatry/wound care nurse -continue Unasyn Discharged home once patient IV antibiotics have been established. Total time spent with patient discussing and formulating plan of care: 35 minutes. This medical document was created using an electronic medical record system with [employer] dictation system. Although this document has been carefully reviewed, there may still be some phonetic and typographical errors. These areas are purely typographical due to imperfections of the software programs, and do not reflect any compromise in the patient's medical care. Plan discussed with: Patient, Other (RN) Date of Service: Sep 19, 2024 Billing Provider: MONSE SHELTON NP Common Visit Codes: [id number] INP/OBS CARE(HIGH) MONSE SHELTON NP Sep 19, 2024 12:32
[2024-09-20] VITALS (8 sets, daily range): BP systolic 109–134; BP diastolic 56–86; PULSE 54–77; RESP 17–19; TEMP 97.6–98.6; O2SAT 94–98
--- NOTE | 2024-09-20 11:11 | DVHPN2 ---
Subjective Denies any new symptoms. Reviewed: Care Plan, H&P, Labs, Medications Changes from previous H/P or p: No Changes General: Per HPI Eyes: No Pain, No Vision change, No Conjunctivae inflammation, No Eyelid inflammation, No Other, No Redness ENT: No Ear pain, No Ear discharge, No Nose pain, No Nose discharge, No Nose congestion, No Mouth pain, No Mouth swelling, No Throat pain, No Throat swelling, No Other Cardiovascular: No Chest Pain, No Palpitations, No Orthopnea, No Paroxysmal Noc. Dyspnea, No Edema, No Lt Headedness, No Other Respiratory: No Cough, No Dry, No Shortness of breath, No SOB with excertion, No Wheezing, No Hemoptysis, No Pleuritic Pain, No Sputum, No Other Gastrointestinal: No Nausea, No Vomiting, No Abdominal Pain, No Diarrhea, No Constipation, No Melena, No Hematochezia, No Other Genitourinary: No Dysuria, No Frequency, No Incontinence, No Hematuria, No Retention, No Other Musculoskeletal: No other, No neck pain, No shoulder pain, No arm pain, No back pain, No hand pain, No leg pain; foot pain Skin: No Rash, No Lesions, No Jaundice, No Bruising; Other (erythema) Objective Vitals Vital Signs Date Time Temp Pulse Resp B/P (MAP) Pulse Ox O2 Delivery O2 Flow Rate FiO2 09/20/24 09:00 97.6 55 19 113/63 (80) 94 97.6 09/19/24 20:00 Room Air* 0 21 Intake/Output Intake and Output 09/20/24 07:00 Intake Total 1516 ml Output Total 3330 ml Balance -1814 ml Intake Oral 1216 ml IV Total 300 ml Output Urine Total 3330 ml General Appearance: Alert, Oriented X3, Cooperative, No acute distress HEENT: Atraumatic, PERRLA Lungs: Clear to auscultation, Normal air movement Cardiovascular: Normal S1, Normal S2 Abdomen: Normal bowel sounds, Soft, No tenderness, No hepatospenomegaly Musculoskeletal: Normal sensory function, Normal motor function Extremities: Other (rt le dressing in place) Neuro: Normal gait, Normal speech Psych/Mental Status: Mental status NL, Mood NL Medications Current Medications Medications Dose Ordered Sig/Ruby Route Start Time Stop Time Status Last Admin Dose Admin Vancomycin HCl 0 ml @ 0 mls/hr UD IV 09/08/24 09:00 Cancel Docusate Sodium 100 mg BIDPRN PRN PO 09/08/24 13:00 Acetaminophen 650 mg Q6HP PRN PO 09/08/24 13:00 Diagnostic Test (Pha) 1 strip ACHS 09/08/24 17:00 09/20/24 06:38 1 STRIP Insulin Human Regular HS SC 09/08/24 22:00 09/19/24 22:41 4 UNITS Insulin Human Regular AC SC 09/08/24 17:00 09/20/24 06:47 2 UNITS Dextrose 50 ml UD PRN IV 09/08/24 13:00 Insulin Glargine 18 units HS SC 09/13/24 22:00 09/19/24 22:41 18 UNITS Sodium Chloride 10 ml QSHIFT@, IV 09/13/24 22:00 09/19/24 22:26 10 ML Ampicillin Sodium/ Sulbactam Sodium 3 gm/Sodium Chloride 100 ml @ 100 mls/hr Q6H IV 09/14/24 22:15 09/20/24 10:08 100 MLS/HR Laboratory Results Laboratory Tests 09/15/24 05:44 Urinalysis Test 09/08/24 09:21 Urine Color Light-yellow (Yellow) Urine Clarity Clear (Clear) Urine pH 6.5 (5.0-9.0) Urine Specific [place] 1.050 (1.001-1.035) Urine Protein Negative (Negative) Urine Ketones Trace (Negative) Urine Blood Negative /uL (Negative) Urine Nitrite Negative (Negative) Urine Bilirubin Negative (Negative) Urine Urobilinogen Normal mg/dL (Negative) Urine Leukocyte Esterase Negative /uL (Negative) Urine RBC 1 /hpf (0 - 3) Urine WBC <1 /hpf (0 - 3) Urine Squamous Epithelial Cells Few /hpf (<5) Urine Bacteria None seen /hpf (None Seen) Urine Mucus Few (None Seen) Urine Glucose 4+ mg/dL (Normal) H Microbiology Microbiology Date/Time Source Procedure Growth Status 09/10/24 16:11 Foot Right Gram Stain - Final Complete 09/10/24 16:11 Foot Right Anaerobic Culture - Final Complete 09/10/24 16:11 Aerobic Culture - Final Klebsiella oxytoca Staphylococcus aureus Complete 09/08/24 09:14 Blood Blood Culture - Final NO GROWTH AFTER 5 DAYS OF INCUBATION. Complete Labs and/or images reviewed: Labs reviewed by me, Image(s) reviewed by me Assessment/Plan Assessment/Plan Impression: -right foot osteomyelitis -diabetes mellitus, uncontrolled with hemoglobin A1c 11.8 -rule out peripheral arterial disease -peripheral neuropathy Plan: -events: Patient was discharged on 09/16/24. Patient pending DME and IV antibiotic therapy which held his discharge. Change since 09/20/2024. Apparently, patient has been approved for IV antibiotic therapy by insurance, but is currently pending acceptance for home health services with wound care -podiatry consultation -regular insulin sliding scale , add Lantus 15 units q.h.s. -wound and blood culture : Pending -wound care per podiatry/wound care nurse -continue Unasyn Discharged home once patient IV antibiotics have been established. Total time spent with patient discussing and formulating plan of care: 35 minutes. This medical document was created using an electronic medical record system with [employer] dictation system. Although this document has been carefully reviewed, there may still be some phonetic and typographical errors. These areas are purely typographical due to imperfections of the software programs, and do not reflect any compromise in the patient's medical care. Plan discussed with: Patient, Other (RN) Date of Service: Sep 20, 2024 Billing Provider: MONSE SHELTON NP Common Visit Codes: [id number] INP/OBS CARE(MOD) MONSE SHELTON NP Sep 20, 2024 11:11
--- NOTE | 2024-09-20 23:03 | DVHPN2 ---
Consult Progress Note Date Seen: Sep 19, 2024 Subjective Patient reports: Feels better (no fever or chills) Objective vital signs Vital Sign Date Time Temp Pulse Resp B/P (MAP) Pulse Ox O2 Delivery O2 Flow Rate FiO2 09/20/24 21:00 98.1 77 19 134/86 (102) 97 98.1 09/20/24 08:10 Room Air* 0 21 Total Intake and Output 09/19/24 09/19/24 09/20/24 15:00 23:00 07:00 Intake Total 100 ml 516 ml 900 ml Output Total 1650 ml 1680 ml Balance 100 ml -1134 ml -780 ml medications Current Medications Medications Dose Ordered Sig/Ruby Route Start Time Stop Time Status Last Admin Dose Admin Vancomycin HCl 0 ml @ 0 mls/hr UD IV 09/08/24 09:00 Cancel Docusate Sodium 100 mg BIDPRN PRN PO 09/08/24 13:00 Acetaminophen 650 mg Q6HP PRN PO 09/08/24 13:00 Diagnostic Test (Pha) 1 strip ACHS 09/08/24 17:00 09/20/24 22:03 1 STRIP Insulin Human Regular HS SC 09/08/24 22:00 09/20/24 22:02 4 UNITS Insulin Human Regular AC SC 09/08/24 17:00 09/20/24 17:44 6 UNITS Dextrose 50 ml UD PRN IV 09/08/24 13:00 Insulin Glargine 18 units HS SC 09/13/24 22:00 09/20/24 22:02 18 UNITS Sodium Chloride 10 ml QSHIFT@10,22 IV 09/13/24 22:00 09/20/24 21:51 10 ML Ampicillin Sodium/ Sulbactam Sodium 3 gm/Sodium Chloride 100 ml @ 100 mls/hr Q6H IV 09/14/24 22:15 09/20/24 21:55 100 MLS/HR PHYSICAL EXAM: - GENERAL: Alert and oriented x 3. No acute distress. Well-nourished. - EYES: EOMI. Anicteric. - HENT: Moist mucous membranes. No scleral icterus. No cervical lymphadenopathy. - LUNGS: Clear to auscultation bilaterally. No accessory muscle use. - CARDIOVASCULAR: Regular rate and rhythm. No murmur. No JVD. - ABDOMEN: Soft, non-tender and non-distended. No palpable masses. - EXTREMITIES: No edema. Non-tender.?SKIN: No rashes or lesions. Warm. - NEUROLOGIC: No focal neurological deficits. CN II-XII grossly intact, but not individually tested - PSYCHIATRIC: Cooperative. Appropriate mood and affect. - laboratory and microbiology Laboratory Tests 09/15/24 05:44 Test 09/15/24 05:44 Range/Units Serum Glucose 138 H 74-106 mg/dL Problem List/Assessment/Plan Problem List/Assessment/Plan ID Problem List: - Diabetic foot ulcer - Osteomyelitis - Gas gangrene - Poorly controlled diabetes mellitus type 2 - Gas-forming bacterial infection Assessment This is a 69 y.o. male with a past medical history of diabetes mellitus type 2 managed with metformin, who presents with a right foot diabetic ulcer exhibiting signs of infection. The patient reports that the ulcer had been closed for a while but reopened two weeks ago on the plantar side of his heel with drainage and pus. He denies fevers, chills, diarrhea, or rash. Vital signs are stable with a temperature of 97.4F, pulse of 94 bpm, respiratory rate of 16 breaths per minute, blood pressure of 109/68 mmHg, and SpO2 of 97% on room air. Physical exam reveals the right foot is entirely erythematous with drainage on the right heel. Laboratory studies show leukocytosis with WBC 17.3, elevated CRP at 14.45, lactic acid 1.8, creatinine 1.1. Hemoglobin is 14.1, and platelets are 401. HbA1c is elevated at 11.8%, indicating poorly controlled diabetes. CT of the right lower extremity shows findings suspicious for osteomyelitis of the great toe proximal and distal phalanges, and extensive subcutaneous edema on the plantar forefoot about the first and second toes consistent with gas-forming bacterial infection plus gas gangrene. Superficial wound cultures are growing gram-negative rods, gram-positive rods, and viridans group B streptococci. Dr. Mensah performed a right foot debridement for gas gangrene with incision and drainage of an abscess at the level of the bone. Deep cultures were obtained during the procedure. 09/12: white count is down to 12.2 . His superficial wound cultures is growing klebsiella oxytosa that is cihnchilla sensitive and during surgery today patient underwent debridement again to the bone and wound was kept open 09/13: whitecount is 12.1 09/14: Whitecount is 10.7 . Cultures are growing MSSA Klebsiella 09/15: spClose the wound with dermal graft application on Plan: - recommend piccline placement for planning 6 weeks of IV antibiotic therapy determined by operative culture results - follow up on operative cultures - continue Unasyn via piccline for 6 weeks - follow up with infectious disease in 4 weeks - Aim to improve diabetic control with a goal of keeping blood sugars under 180 mg/dL to enhance wound healing; will coordinate with endocrinology for management. - Follow up on blood cultures and deep wound cultures to tailor antibiotic therapy appropriately. - Agree with Podiatry evaluation for any additional debridement as necessary. - Recommend close outpatient follow-up with primary care physician to manage diabetes and prevent future complications. Plan discussed with: Patient Dietary Evaluation Review Comments: 1) Advance pt diet when medically feasible to a [facility] 60g diet 2) Continue current plan of care Expected Outcomes/Goals: F/U in 3-5 days BLANCA SCHWARTZ MD Sep 20, 2024 23:03
--- NOTE | 2024-09-20 23:42 | DVHPN2 ---
Consult Progress Note Date Seen: Sep 20, 2024 Subjective Patient reports: Other (not having any foot pain or drainage , the graft appears to be intact and holding, erosanius drainage on the bandage ) Objective vital signs Vital Sign Date Time Temp Pulse Resp B/P (MAP) Pulse Ox O2 Delivery O2 Flow Rate FiO2 09/20/24 21:00 98.1 77 19 134/86 (102) 97 98.1 09/20/24 08:10 Room Air* 0 21 Total Intake and Output 09/19/24 09/19/24 09/20/24 15:00 23:00 07:00 Intake Total 100 ml 516 ml 900 ml Output Total 1650 ml 1680 ml Balance 100 ml -1134 ml -780 ml medications Current Medications Medications Dose Ordered Sig/Ruby Route Start Time Stop Time Status Last Admin Dose Admin Vancomycin HCl 0 ml @ 0 mls/hr UD IV 09/08/24 09:00 Cancel Docusate Sodium 100 mg BIDPRN PRN PO 09/08/24 13:00 Acetaminophen 650 mg Q6HP PRN PO 09/08/24 13:00 Diagnostic Test (Pha) 1 strip ACHS 09/08/24 17:00 09/20/24 22:03 1 STRIP Insulin Human Regular HS SC 09/08/24 22:00 09/20/24 22:02 4 UNITS Insulin Human Regular AC SC 09/08/24 17:00 09/20/24 17:44 6 UNITS Dextrose 50 ml UD PRN IV 09/08/24 13:00 Insulin Glargine 18 units HS SC 09/13/24 22:00 09/20/24 22:02 18 UNITS Sodium Chloride 10 ml QSHIFT@10,22 IV 09/13/24 22:00 09/20/24 21:51 10 ML Ampicillin Sodium/ Sulbactam Sodium 3 gm/Sodium Chloride 100 ml @ 100 mls/hr Q6H IV 09/14/24 22:15 09/20/24 21:55 100 MLS/HR PHYSICAL EXAM: - GENERAL: Alert and oriented x 3. No acute distress. Well-nourished. - EYES: EOMI. Anicteric. - HENT: Moist mucous membranes. No scleral icterus. No cervical lymphadenopathy. - LUNGS: Clear to auscultation bilaterally. No accessory muscle use. - CARDIOVASCULAR: Regular rate and rhythm. No murmur. No JVD. - ABDOMEN: Soft, non-tender and non-distended. No palpable masses. - EXTREMITIES: No edema. Non-tender.?SKIN: No rashes or lesions. Warm. - NEUROLOGIC: No focal neurological deficits. CN II-XII grossly intact, but not individually tested - PSYCHIATRIC: Cooperative. Appropriate mood and affect. laboratory and microbiology Laboratory Tests 09/15/24 05:44 Test 09/15/24 05:44 Range/Units Serum Glucose 138 H 74-106 mg/dL Problem List/Assessment/Plan Problems(with codes): (1) Sepsis (2) Acute respiratory distress (3) Peripheral arterial disease (4) Pneumonia due to Coronavirus disease 2019 (5) Gas gangrene (6) Osteomyelitis (7) Diabetes type 2 Problem List/Assessment/Plan ID Problem List: - Diabetic foot ulcer - Osteomyelitis - Gas gangrene - Poorly controlled diabetes mellitus type 2 - Gas-forming bacterial infection Assessment This is a 69 y.o. male with a past medical history of diabetes mellitus type 2 managed with metformin, who presents with a right foot diabetic ulcer exhibiting signs of infection. The patient reports that the ulcer had been closed for a while but reopened two weeks ago on the plantar side of his heel with drainage and pus. He denies fevers, chills, diarrhea, or rash. Vital signs are stable with a temperature of 97.4F, pulse of 94 bpm, respiratory rate of 16 breaths per minute, blood pressure of 109/68 mmHg, and SpO2 of 97% on room air. Physical exam reveals the right foot is entirely erythematous with drainage on the right heel. Laboratory studies show leukocytosis with WBC 17.3, elevated CRP at 14.45, lactic acid 1.8, creatinine 1.1. Hemoglobin is 14.1, and platelets are 401. HbA1c is elevated at 11.8%, indicating poorly controlled diabetes. CT of the right lower extremity shows findings suspicious for osteomyelitis of the great toe proximal and distal phalanges, and extensive subcutaneous edema on the plantar forefoot about the first and second toes consistent with gas-forming bacterial infection plus gas gangrene. Superficial wound cultures are growing gram-negative rods, gram-positive rods, and viridans group B streptococci. Dr. Mensah performed a right foot debridement for gas gangrene with incision and drainage of an abscess at the level of the bone. Deep cultures were obtained during the procedure. 09/12: white count is down to 12.2 . His superficial wound cultures is growing klebsiella oxytosa that is chinchilla sensitive and during surgery today patient underwent debridement again to the bone and wound was kept open 09/13: whitecount is 12.1 09/14: Whitecount is 10.7 . Cultures are growing MSSA Klebsiella 09/15: spClose the wound with dermal graft application on 09/20: awaiting insurance to approve antibiotics Plan: - recommend piccline placement for planning 6 weeks of IV antibiotic therapy determined by operative culture results - follow up on operative cultures - continue Unasyn via piccline for 6 weeks - follow up with infectious disease in 4 weeks - Aim to improve diabetic control with a goal of keeping blood sugars under 180 mg/dL to enhance wound healing; will coordinate with endocrinology for management. - Follow up on blood cultures and deep wound cultures to tailor antibiotic therapy appropriately. - Agree with Podiatry evaluation for any additional debridement as necessary. - Recommend close outpatient follow-up with primary care physician to manage diabetes and prevent future complications. Plan discussed with: Other Dietary Evaluation Review Comments: 1) Advance pt diet when medically feasible to a [facility]g diet 2) Continue current plan of care Expected Outcomes/Goals: F/U in 3-5 days BLANCA SCHWARTZ MD Sep 20, 2024 23:41
[2024-09-21 01:17] VITALS: BP 96/56; PULSE 59; RESP 19; TEMP 98.2; O2SAT 95
[2024-09-21 05:00] VITALS: BP 102/60; PULSE 58; RESP 19; TEMP 97.9; O2SAT 93
[2024-09-21 09:00] VITALS: BP 111/58; PULSE 57; RESP 16; TEMP 97.7; O2SAT 96
[2024-09-21 12:47] VITALS: BP 111/61; PULSE 57; RESP 18; TEMP 97.2; O2SAT 97
--- NOTE | 2024-09-21 13:22 | DVHPN2 ---
Subjective Denies any new symptoms. Reviewed: Care Plan, H&P, Labs, Medications Changes from previous H/P or p: No Changes General: Per HPI Eyes: No Pain, No Vision change, No Conjunctivae inflammation, No Eyelid inflammation, No Other, No Redness ENT: No Ear pain, No Ear discharge, No Nose pain, No Nose discharge, No Nose congestion, No Mouth pain, No Mouth swelling, No Throat pain, No Throat swelling, No Other Cardiovascular: No Chest Pain, No Palpitations, No Orthopnea, No Paroxysmal Noc. Dyspnea, No Edema, No Lt Headedness, No Other Respiratory: No Cough, No Dry, No Shortness of breath, No SOB with excertion, No Wheezing, No Hemoptysis, No Pleuritic Pain, No Sputum, No Other Gastrointestinal: No Nausea, No Vomiting, No Abdominal Pain, No Diarrhea, No Constipation, No Melena, No Hematochezia, No Other Genitourinary: No Dysuria, No Frequency, No Incontinence, No Hematuria, No Retention, No Other Musculoskeletal: No other, No neck pain, No shoulder pain, No arm pain, No back pain, No hand pain, No leg pain; foot pain Skin: No Rash, No Lesions, No Jaundice, No Bruising; Other (erythema) Objective Vitals Vital Signs Date Time Temp Pulse Resp B/P (MAP) Pulse Ox O2 Delivery O2 Flow Rate FiO2 09/21/24 12:47 97.2 57 18 111/61 (78) 97 97.2 09/21/24 08:10 Room Air* 0 21 Intake/Output Intake and Output 09/21/24 07:00 Intake Total 1414 ml Output Total 1400 ml Balance 14 ml Intake Oral 1114 ml IV Total 300 ml Output Urine Total 1400 ml # Voids 1 # Bowel Movements 1 General Appearance: Alert, Oriented X3, Cooperative, No acute distress HEENT: Atraumatic, PERRLA Lungs: Clear to auscultation, Normal air movement Cardiovascular: Normal S1, Normal S2 Abdomen: Normal bowel sounds, Soft, No tenderness, No hepatospenomegaly Musculoskeletal: Normal sensory function, Normal motor function Extremities: Other (rt le dressing in place) Neuro: Normal gait, Normal speech Psych/Mental Status: Mental status NL, Mood NL Medications Current Medications Medications Dose Ordered Sig/Ruby Route Start Time Stop Time Status Last Admin Dose Admin Vancomycin HCl 0 ml @ 0 mls/hr UD IV 09/08/24 09:00 Cancel Docusate Sodium 100 mg BIDPRN PRN PO 09/08/24 13:00 Acetaminophen 650 mg Q6HP PRN PO 09/08/24 13:00 Diagnostic Test (Pha) 1 strip ACHS 09/08/24 17:00 09/21/24 12:43 1 STRIP Insulin Human Regular HS SC 09/08/24 22:00 09/20/24 22:02 4 UNITS Insulin Human Regular AC SC 09/08/24 17:00 09/21/24 12:43 3 UNITS Dextrose 50 ml UD PRN IV 09/08/24 13:00 Insulin Glargine 18 units HS SC 09/13/24 22:00 09/20/24 22:02 18 UNITS Sodium Chloride 10 ml QSHIFT@10,22 IV 09/13/24 22:00 09/21/24 10:50 10 ML Ampicillin Sodium/ Sulbactam Sodium 3 gm/Sodium Chloride 100 ml @ 100 mls/hr Q6H IV 09/14/24 22:15 09/21/24 10:50 100 MLS/HR Laboratory Results Laboratory Tests 09/15/24 05:44 Urinalysis Test 09/08/24 09:21 Urine Color Light-yellow (Yellow) Urine Clarity Clear (Clear) Urine pH 6.5 (5.0-9.0) Urine Specific [place] 1.050 (1.001-1.035) Urine Protein Negative (Negative) Urine Ketones Trace (Negative) Urine Blood Negative /uL (Negative) Urine Nitrite Negative (Negative) Urine Bilirubin Negative (Negative) Urine Urobilinogen Normal mg/dL (Negative) Urine Leukocyte Esterase Negative /uL (Negative) Urine RBC 1 /hpf (0 - 3) Urine WBC <1 /hpf (0 - 3) Urine Squamous Epithelial Cells Few /hpf (<5) Urine Bacteria None seen /hpf (None Seen) Urine Mucus Few (None Seen) Urine Glucose 4+ mg/dL (Normal) H Microbiology Microbiology Date/Time Source Procedure Growth Status 09/10/24 16:11 Foot Right Gram Stain - Final Complete 09/10/24 16:11 Foot Right Anaerobic Culture - Final Complete 09/10/24 16:11 Aerobic Culture - Final Klebsiella oxytoca Staphylococcus aureus Complete 09/08/24 09:14 Blood Blood Culture - Final NO GROWTH AFTER 5 DAYS OF INCUBATION. Complete Labs and/or images reviewed: Labs reviewed by me, Image(s) reviewed by me Assessment/Plan Assessment/Plan Impression: -right foot osteomyelitis -diabetes mellitus, uncontrolled with hemoglobin A1c 11.8 -rule out peripheral arterial disease -peripheral neuropathy Plan: -events: Patient was discharged on 09/16/24. Patient pending DME and IV antibiotic therapy which held his discharge. No change in assessment/plan 09/21/2024. Apparently, patient has been approved for IV antibiotic therapy by insurance, but is currently pending acceptance for home health services with wound care -podiatry consultation -regular insulin sliding scale , add Lantus 15 units q.h.s. -wound and blood culture : Pending -wound care per podiatry/wound care nurse -continue Unasyn Discharged home once patient IV antibiotics have been established. Total time spent with patient discussing and formulating plan of care: 35 minutes. This medical document was created using an electronic medical record system with [employer] dictation system. Although this document has been carefully reviewed, there may still be some phonetic and typographical errors. These areas are purely typographical due to imperfections of the software programs, and do not reflect any compromise in the patient's medical care. Plan discussed with: Patient, Other (RN) Date of Service: Sep 21, 2024 Billing Provider: MONSE SHELTON NP Common Visit Codes: [id number] INP/OBS CARE(MOD) MONSE SHELTON NP Sep 21, 2024 13:22
[2024-09-21 16:48] VITALS: BP 114/43; PULSE 56; RESP 16; TEMP 97.6; O2SAT 96
[2024-09-21 22:00] VITALS: BP 120/49; PULSE 58; RESP 18; TEMP 98.2; O2SAT 94
[2024-09-22] VITALS (8 sets, daily range): BP systolic 95–130; BP diastolic 56–71; PULSE 50–63; RESP 16–20; TEMP 36.4; O2SAT 94–98
--- NOTE | 2024-09-22 13:15 | DVHPN2 ---
Subjective Denies any new symptoms. Reviewed: Care Plan, H&P, Labs, Medications Changes from previous H/P or p: No Changes General: Per HPI Eyes: No Pain, No Vision change, No Conjunctivae inflammation, No Eyelid inflammation, No Other, No Redness ENT: No Ear pain, No Ear discharge, No Nose pain, No Nose discharge, No Nose congestion, No Mouth pain, No Mouth swelling, No Throat pain, No Throat swelling, No Other Cardiovascular: No Chest Pain, No Palpitations, No Orthopnea, No Paroxysmal Noc. Dyspnea, No Edema, No Lt Headedness, No Other Respiratory: No Cough, No Dry, No Shortness of breath, No SOB with excertion, No Wheezing, No Hemoptysis, No Pleuritic Pain, No Sputum, No Other Gastrointestinal: No Nausea, No Vomiting, No Abdominal Pain, No Diarrhea, No Constipation, No Melena, No Hematochezia, No Other Genitourinary: No Dysuria, No Frequency, No Incontinence, No Hematuria, No Retention, No Other Musculoskeletal: No other, No neck pain, No shoulder pain, No arm pain, No back pain, No hand pain, No leg pain; foot pain Skin: No Rash, No Lesions, No Jaundice, No Bruising; Other (erythema) Objective Vitals Vital Signs Date Time Temp Pulse Resp B/P (MAP) Pulse Ox O2 Delivery O2 Flow Rate FiO2 09/22/24 09:00 97.6 53 16 113/71 (85) 98 97.6 09/22/24 08:00 Room Air* 0 21 Intake/Output Intake and Output 09/22/24 07:00 Intake Total 1240 ml Output Total 700 ml Balance 540 ml Intake Oral 840 ml IV Total 400 ml Output Urine Total 700 ml # Bowel Movements 1 General Appearance: Alert, Oriented X3, Cooperative, No acute distress HEENT: Atraumatic, PERRLA Lungs: Clear to auscultation, Normal air movement Cardiovascular: Normal S1, Normal S2 Abdomen: Normal bowel sounds, Soft, No tenderness, No hepatospenomegaly Musculoskeletal: Normal sensory function, Normal motor function Extremities: Other (rt le dressing in place) Neuro: Normal gait, Normal speech Psych/Mental Status: Mental status NL, Mood NL Medications Current Medications Medications Dose Ordered Sig/Ruby Route Start Time Stop Time Status Last Admin Dose Admin Vancomycin HCl 0 ml @ 0 mls/hr UD IV 09/08/24 09:00 Cancel Docusate Sodium 100 mg BIDPRN PRN PO 09/08/24 13:00 Acetaminophen 650 mg Q6HP PRN PO 09/08/24 13:00 Diagnostic Test (Pha) 1 strip ACHS 09/08/24 17:00 09/22/24 11:34 1 STRIP Insulin Human Regular HS SC 09/08/24 22:00 09/21/24 21:31 4 UNITS Insulin Human Regular AC SC 09/08/24 17:00 09/22/24 11:40 3 UNITS Dextrose 50 ml UD PRN IV 09/08/24 13:00 Insulin Glargine 18 units HS SC 09/13/24 22:00 09/21/24 21:32 18 UNITS Sodium Chloride 10 ml QSHIFT@, IV 09/13/24 22:00 09/22/24 09:13 10 ML Ampicillin Sodium/ Sulbactam Sodium 3 gm/Sodium Chloride 100 ml @ 100 mls/hr Q6H IV 09/14/24 22:15 09/22/24 09:13 100 MLS/HR Laboratory Results Laboratory Tests 09/15/24 05:44 Urinalysis Test 09/08/24 09:21 Urine Color Light-yellow (Yellow) Urine Clarity Clear (Clear) Urine pH 6.5 (5.0-9.0) Urine Specific [place] 1.050 (1.001-1.035) Urine Protein Negative (Negative) Urine Ketones Trace (Negative) Urine Blood Negative /uL (Negative) Urine Nitrite Negative (Negative) Urine Bilirubin Negative (Negative) Urine Urobilinogen Normal mg/dL (Negative) Urine Leukocyte Esterase Negative /uL (Negative) Urine RBC 1 /hpf (0 - 3) Urine WBC <1 /hpf (0 - 3) Urine Squamous Epithelial Cells Few /hpf (<5) Urine Bacteria None seen /hpf (None Seen) Urine Mucus Few (None Seen) Urine Glucose 4+ mg/dL (Normal) H Microbiology Microbiology Date/Time Source Procedure Growth Status 09/10/24 16:11 Foot Right Gram Stain - Final Complete 09/10/24 16:11 Foot Right Anaerobic Culture - Final Complete 09/10/24 16:11 Aerobic Culture - Final Klebsiella oxytoca Staphylococcus aureus Complete 09/08/24 09:14 Blood Blood Culture - Final NO GROWTH AFTER 5 DAYS OF INCUBATION. Complete Labs and/or images reviewed: Labs reviewed by me, Image(s) reviewed by me Assessment/Plan Assessment/Plan Impression: -right foot osteomyelitis -diabetes mellitus, uncontrolled with hemoglobin A1c 11.8 -rule out peripheral arterial disease -peripheral neuropathy Plan: -events: Discharge today after podiatry re-evaluate it is foot wound. Continue plan of care with home IV antibiotics, home wound care. -podiatry consultation -regular insulin sliding scale , add Lantus 15 units q.h.s. -wound and blood culture : Pending -wound care per podiatry/wound care nurse -continue Unasyn Discharged home once patient IV antibiotics have been established. Total time spent with patient discussing and formulating plan of care: 35 minutes. This medical document was created using an electronic medical record system with [employer] dictation system. Although this document has been carefully reviewed, there may still be some phonetic and typographical errors. These areas are purely typographical due to imperfections of the software programs, and do not reflect any compromise in the patient's medical care. Plan discussed with: Patient, Other (RN) My Orders Orders - MONSE SHELTON NP Procedure Category Date Status Time *Podiatry Consult CONS 09/22/24 Transmitted [facility]) 09:56 Discharge DISCHARGE 09/22/24 Verified 13:14 Date of Service: Sep 22, 2024 Billing Provider: MONSE SHELTON NP Common Visit Codes: [id number] INP/OBS CARE(HIGH) MONSE SHELTON NP Sep 22, 2024 13:15
--- NOTE | 2024-09-22 22:17 | DVHPN2 ---
Consult Progress Note Date Seen: Sep 21, 2024 Subjective Patient reports: Feels better (difficulty finding available home health nurse) Objective vital signs Vital Sign Date Time Temp Pulse Resp B/P (MAP) Pulse Ox O2 Delivery O2 Flow Rate FiO2 09/22/24 17:00 97.7 63 20 128/61 (83) 97 97.7 09/22/24 08:00 Room Air* 0 21 Total Intake and Output 09/21/24 09/21/24 09/22/24 15:00 23:00 07:00 Intake Total 100 ml 800 ml 340 ml Output Total 700 ml Balance 100 ml 100 ml 340 ml medications Current Medications Medications Dose Ordered Sig/Ruby Route Start Time Stop Time Status Last Admin Dose Admin Vancomycin HCl 0 ml @ 0 mls/hr UD IV 09/08/24 09:00 Cancel Docusate Sodium 100 mg BIDPRN PRN PO 09/08/24 13:00 Acetaminophen 650 mg Q6HP PRN PO 09/08/24 13:00 Diagnostic Test (Pha) 1 strip ACHS 09/08/24 17:00 09/22/24 21:33 1 STRIP Insulin Human Regular HS SC 09/08/24 22:00 09/22/24 21:34 3 UNITS Insulin Human Regular AC SC 09/08/24 17:00 09/22/24 17:14 3 UNITS Dextrose 50 ml UD PRN IV 09/08/24 13:00 Insulin Glargine 18 units HS SC 09/13/24 22:00 09/22/24 21:33 18 UNITS Sodium Chloride 10 ml QSHIFT@10,22 IV 09/13/24 22:00 09/22/24 21:32 10 ML Ampicillin Sodium/ Sulbactam Sodium 3 gm/Sodium Chloride 100 ml @ 100 mls/hr Q6H IV 09/14/24 22:15 09/22/24 17:01 100 MLS/HR PHYSICAL EXAM: - GENERAL: Alert and oriented x 3. No acute distress. Well-nourished. - EYES: EOMI. Anicteric. - HENT: Moist mucous membranes. No scleral icterus. No cervical lymphadenopathy. - LUNGS: Clear to auscultation bilaterally. No accessory muscle use. - CARDIOVASCULAR: Regular rate and rhythm. No murmur. No JVD. - ABDOMEN: Soft, non-tender and non-distended. No palpable masses. - EXTREMITIES: No edema. Non-tender.?SKIN: No rashes or lesions. Warm. - NEUROLOGIC: No focal neurological deficits. CN II-XII grossly intact, but not individually tested - PSYCHIATRIC: Cooperative. Appropriate mood and affect. laboratory and microbiology Laboratory Tests 09/15/24 05:44 Test 09/15/24 05:44 Range/Units Serum Glucose 138 H 74-106 mg/dL Problem List/Assessment/Plan Problems(with codes): (1) Sepsis (2) Peripheral arterial disease (3) Acute respiratory distress (4) Pneumonia due to Coronavirus disease 2019 (5) Gas gangrene (6) Osteomyelitis (7) Diabetes type 2 Problem List/Assessment/Plan ID Problem List: - Diabetic foot ulcer - Osteomyelitis - Gas gangrene - Poorly controlled diabetes mellitus type 2 - Gas-forming bacterial infection Assessment This is a 69 y.o. male with a past medical history of diabetes mellitus type 2 managed with metformin, who presents with a right foot diabetic ulcer exhibiting signs of infection. The patient reports that the ulcer had been closed for a while but reopened two weeks ago on the plantar side of his heel with drainage and pus. He denies fevers, chills, diarrhea, or rash. Vital signs are stable with a temperature of 97.4F, pulse of 94 bpm, respiratory rate of 16 breaths per minute, blood pressure of 109/68 mmHg, and SpO2 of 97% on room air. Physical exam reveals the right foot is entirely erythematous with drainage on the right heel. Laboratory studies show leukocytosis with WBC 17.3, elevated CRP at 14.45, lactic acid 1.8, creatinine 1.1. Hemoglobin is 14.1, and platelets are 401. HbA1c is elevated at 11.8%, indicating poorly controlled diabetes. CT of the right lower extremity shows findings suspicious for osteomyelitis of the great toe proximal and distal phalanges, and extensive subcutaneous edema on the plantar forefoot about the first and second toes consistent with gas-forming bacterial infection plus gas gangrene. Superficial wound cultures are growing gram-negative rods, gram-positive rods, and viridans group B streptococci. Dr. Mensah performed a right foot debridement for gas gangrene with incision and drainage of an abscess at the level of the bone. Deep cultures were obtained during the procedure. 09/12: white count is down to 12.2 . His superficial wound cultures is growing klebsiella oxytosa that is chinchilla sensitive and during surgery today patient underwent debridement again to the bone and wound was kept open 09/13: whitecount is 12.1 09/14: Whitecount is 10.7 . Cultures are growing MSSA Klebsiella 09/15: spClose the wound with dermal graft application on 09/20: awaiting insurance to approve antibiotics Plan: - recommend piccline placement for planning 6 weeks of IV antibiotic therapy determined by operative culture results - follow up on operative cultures - continue Unasyn via piccline for 6 weeks - follow up with infectious disease in 4 weeks - Aim to improve diabetic control with a goal of keeping blood sugars under 180 mg/dL to enhance wound healing; will coordinate with endocrinology for management. - Follow up on blood cultures and deep wound cultures to tailor antibiotic therapy appropriately. - Agree with Podiatry evaluation for any additional debridement as necessary. - Recommend close outpatient follow-up with primary care physician to manage diabetes and prevent future complications. Plan discussed with: Patient Dietary Evaluation Review Comments: 1) Advance pt diet when medically feasible to a [facility] 60g diet 2) Continue current plan of care Expected Outcomes/Goals: F/U in 3-5 days BLANCA SCHWARTZ MD Sep 22, 2024 22:17
[2024-09-23 05:00] VITALS: BP 110/67; PULSE 58; RESP 18; TEMP 97.8; O2SAT 95
[2024-09-23 08:00] VITALS: RESP 16
--- NOTE | 2024-09-23 08:43 | DVHPN2 ---
Subjective Denies any new symptoms. Reviewed: Care Plan, H&P, Labs, Medications Changes from previous H/P or p: No Changes General: Per HPI Eyes: No Pain, No Vision change, No Conjunctivae inflammation, No Eyelid inflammation, No Other, No Redness ENT: No Ear pain, No Ear discharge, No Nose pain, No Nose discharge, No Nose congestion, No Mouth pain, No Mouth swelling, No Throat pain, No Throat swelling, No Other Cardiovascular: No Chest Pain, No Palpitations, No Orthopnea, No Paroxysmal Noc. Dyspnea, No Edema, No Lt Headedness, No Other Respiratory: No Cough, No Dry, No Shortness of breath, No SOB with excertion, No Wheezing, No Hemoptysis, No Pleuritic Pain, No Sputum, No Other Gastrointestinal: No Nausea, No Vomiting, No Abdominal Pain, No Diarrhea, No Constipation, No Melena, No Hematochezia, No Other Genitourinary: No Dysuria, No Frequency, No Incontinence, No Hematuria, No Retention, No Other Musculoskeletal: No other, No neck pain, No shoulder pain, No arm pain, No back pain, No hand pain, No leg pain; foot pain Skin: No Rash, No Lesions, No Jaundice, No Bruising; Other (erythema) Objective Vitals Vital Signs Date Time Temp Pulse Resp B/P (MAP) Pulse Ox O2 Delivery O2 Flow Rate FiO2 09/23/24 05:00 97.8 58 18 110/67 (81) 95 97.8 09/22/24 20:00 Room Air* 0 21 Intake/Output Intake and Output 09/23/24 07:00 Intake Total 1840 ml Output Total 1800 ml Balance 40 ml Intake Oral 1440 ml IV Total 400 ml Output Urine Total 1800 ml General Appearance: Alert, Oriented X3, Cooperative, No acute distress HEENT: Atraumatic, PERRLA Lungs: Clear to auscultation, Normal air movement Cardiovascular: Normal S1, Normal S2 Abdomen: Normal bowel sounds, Soft, No tenderness, No hepatospenomegaly Musculoskeletal: Normal sensory function, Normal motor function Extremities: Other (rt le dressing in place) Neuro: Normal gait, Normal speech Psych/Mental Status: Mental status NL, Mood NL Medications Current Medications Medications Dose Ordered Sig/Ruby Route Start Time Stop Time Status Last Admin Dose Admin Vancomycin HCl 0 ml @ 0 mls/hr UD IV 09/08/24 09:00 Cancel Docusate Sodium 100 mg BIDPRN PRN PO 09/08/24 13:00 Acetaminophen 650 mg Q6HP PRN PO 09/08/24 13:00 Diagnostic Test (Pha) 1 strip ACHS 09/08/24 17:00 09/23/24 06:04 1 STRIP Insulin Human Regular HS SC 09/08/24 22:00 09/22/24 21:34 3 UNITS Insulin Human Regular AC SC 09/08/24 17:00 09/22/24 17:14 3 UNITS Dextrose 50 ml UD PRN IV 09/08/24 13:00 Insulin Glargine 18 units HS SC 09/13/24 22:00 09/22/24 21:33 18 UNITS Sodium Chloride 10 ml QSHIFT@, IV 09/13/24 22:00 09/22/24 21:32 10 ML Ampicillin Sodium/ Sulbactam Sodium 3 gm/Sodium Chloride 100 ml @ 100 mls/hr Q6H IV 09/14/24 22:15 09/23/24 03:50 100 MLS/HR Laboratory Results Laboratory Tests 09/15/24 05:44 Urinalysis Test 09/08/24 09:21 Urine Color Light-yellow (Yellow) Urine Clarity Clear (Clear) Urine pH 6.5 (5.0-9.0) Urine Specific [place] 1.050 (1.001-1.035) Urine Protein Negative (Negative) Urine Ketones Trace (Negative) Urine Blood Negative /uL (Negative) Urine Nitrite Negative (Negative) Urine Bilirubin Negative (Negative) Urine Urobilinogen Normal mg/dL (Negative) Urine Leukocyte Esterase Negative /uL (Negative) Urine RBC 1 /hpf (0 - 3) Urine WBC <1 /hpf (0 - 3) Urine Squamous Epithelial Cells Few /hpf (<5) Urine Bacteria None seen /hpf (None Seen) Urine Mucus Few (None Seen) Urine Glucose 4+ mg/dL (Normal) H Microbiology Microbiology Date/Time Source Procedure Growth Status 09/10/24 16:11 Foot Right Gram Stain - Final Complete 09/10/24 16:11 Foot Right Anaerobic Culture - Final Complete 09/10/24 16:11 Aerobic Culture - Final Klebsiella oxytoca Staphylococcus aureus Complete 09/08/24 09:14 Blood Blood Culture - Final NO GROWTH AFTER 5 DAYS OF INCUBATION. Complete Labs and/or images reviewed: Labs reviewed by me, Image(s) reviewed by me Assessment/Plan Assessment/Plan Impression: -right foot osteomyelitis -diabetes mellitus, uncontrolled with hemoglobin A1c 11.8 -rule out peripheral arterial disease -peripheral neuropathy Plan: -events: Patient pending reassessment of diabetic foot wound. According to social service notes, there was also an issue with receiving nurse at discharge for IV antibiotics. Discharge once DC planning has been established -podiatry consultation -regular insulin sliding scale , add Lantus 15 units q.h.s. -wound and blood culture : Pending -wound care per podiatry/wound care nurse -continue Unasyn Discharged home once patient IV antibiotics have been established. Total time spent with patient discussing and formulating plan of care: 35 minutes. This medical document was created using an electronic medical record system with [employer] dictation system. Although this document has been carefully reviewed, there may still be some phonetic and typographical errors. These areas are purely typographical due to imperfections of the software programs, and do not reflect any compromise in the patient's medical care. Plan discussed with: Patient, Other (RN) My Orders Orders - MONSE SHELTON NP Procedure Category Date Status Time *Podiatry Consult CONS 09/22/24 Transmitted [facility]) 09:56 Discharge DISCHARGE 09/22/24 Transmitted 13:14 Date of Service: Sep 23, 2024 Billing Provider: MONSE SHELTON NP Common Visit Codes: [id number] INP/OBS CARE(HIGH) MONSE SHELTON NP Sep 23, 2024 08:43
[2024-09-23 09:00] VITALS: BP 104/65; PULSE 50; RESP 16; TEMP 98; O2SAT 98
[2024-09-23 11:39] LABS: Chloride 101 mmol/L (98-107); Potassium 4.1 mmol/L (3.5-5.1); Sodium 136 mmol/L (136-145)
[2024-09-23 11:40] LABS: Anion Gap 6 (5-15); Carbon Dioxide 29 mmol/L (20-31)
[2024-09-23 11:46] LABS: BUN/Creatinine Ratio 15.6 (10.0-20.0); Blood Urea Nitrogen 15 mg/dL (9-23)
[2024-09-23 11:48] LABS: Glucose 175 mg/dL (74-106)
[2024-09-23 13:00] VITALS: BP 108/64; PULSE 62; RESP 18; TEMP 97.8; O2SAT 97
--- NOTE | 2024-09-23 13:20 | DVHPN2 ---
Consult Progress Note Date Seen: Sep 23, 2024 Subjective Patient reports: Feels better (no diarrhea or rash) Objective vital signs Vital Sign Date Time Temp Pulse Resp B/P (MAP) Pulse Ox O2 Delivery O2 Flow Rate FiO2 09/23/24 09:00 98.0 50 16 104/65 (78) 98 98.0 09/23/24 08:00 Room Air* 0 21 Total Intake and Output 09/22/24 09/22/24 09/23/24 15:00 23:00 07:00 Intake Total 100 ml 1300 ml 440 ml Output Total 800 ml 1000 ml Balance 100 ml 500 ml -560 ml medications Current Medications Medications Dose Ordered Sig/Ruby Route Start Time Stop Time Status Last Admin Dose Admin Vancomycin HCl 0 ml @ 0 mls/hr UD IV 09/08/24 09:00 Cancel Docusate Sodium 100 mg BIDPRN PRN PO 09/08/24 13:00 Acetaminophen 650 mg Q6HP PRN PO 09/08/24 13:00 Diagnostic Test (Pha) 1 strip ACHS 09/08/24 17:00 09/23/24 11:30 1 STRIP Insulin Human Regular HS SC 09/08/24 22:00 09/22/24 21:34 3 UNITS Insulin Human Regular AC SC 09/08/24 17:00 09/23/24 12:48 3 UNITS Dextrose 50 ml UD PRN IV 09/08/24 13:00 Insulin Glargine 18 units HS SC 09/13/24 22:00 09/22/24 21:33 18 UNITS Sodium Chloride 10 ml QSHIFT@10,22 IV 09/13/24 22:00 09/23/24 09:26 10 ML Ampicillin Sodium/ Sulbactam Sodium 3 gm/Sodium Chloride 100 ml @ 100 mls/hr Q6H IV 09/14/24 22:15 09/23/24 09:22 100 MLS/HR PHYSICAL EXAM: - GENERAL: Alert and oriented x 3. No acute distress. Well-nourished. - EYES: EOMI. Anicteric. - HENT: Moist mucous membranes. No scleral icterus. No cervical lymphadenopathy. - LUNGS: Clear to auscultation bilaterally. No accessory muscle use. - CARDIOVASCULAR: Regular rate and rhythm. No murmur. No JVD. - ABDOMEN: Soft, non-tender and non-distended. No palpable masses. - EXTREMITIES: No edema. Non-tender.?SKIN: No rashes or lesions. Warm. - NEUROLOGIC: No focal neurological deficits. CN II-XII grossly intact, but not individually tested - PSYCHIATRIC: Cooperative. Appropriate mood and affect. laboratory and microbiology Laboratory Tests 09/23/24 11:00 09/15/24 05:44 Test 09/23/24 11:00 Range/Units Serum Glucose 175 H 74-106 mg/dL Problem List/Assessment/Plan Problem List/Assessment/Plan ID Problem List: - Diabetic foot ulcer - Osteomyelitis - Gas gangrene - Poorly controlled diabetes mellitus type 2 - Gas-forming bacterial infection Assessment This is a 69 y.o. male with a past medical history of diabetes mellitus type 2 managed with metformin, who presents with a right foot diabetic ulcer exhibiting signs of infection. The patient reports that the ulcer had been closed for a while but reopened two weeks ago on the plantar side of his heel with drainage and pus. He denies fevers, chills, diarrhea, or rash. Vital signs are stable with a temperature of 97.4F, pulse of 94 bpm, respiratory rate of 16 breaths per minute, blood pressure of 109/68 mmHg, and SpO2 of 97% on room air. Physical exam reveals the right foot is entirely erythematous with drainage on the right heel. Laboratory studies show leukocytosis with WBC 17.3, elevated CRP at 14.45, lactic acid 1.8, creatinine 1.1. Hemoglobin is 14.1, and platelets are 401. HbA1c is elevated at 11.8%, indicating poorly controlled diabetes. CT of the right lower extremity shows findings suspicious for osteomyelitis of the great toe proximal and distal phalanges, and extensive subcutaneous edema on the plantar forefoot about the first and second toes consistent with gas-forming bacterial infection plus gas gangrene. Superficial wound cultures are growing gram-negative rods, gram-positive rods, and viridans group B streptococci. Dr. Mensah performed a right foot debridement for gas gangrene with incision and drainage of an abscess at the level of the bone. Deep cultures were obtained during the procedure. 09/12: white count is down to 12.2 . His superficial wound cultures is growing klebsiella oxytosa that is chinchilla sensitive and during surgery today patient underwent debridement again to the bone and wound was kept open 09/13: whitecount is 12.1 09/14: Whitecount is 10.7 . Cultures are growing MSSA Klebsiella 09/15: spClose the wound with dermal graft application on 09/20: awaiting insurance to approve antibiotics Plan: - recommend piccline placement for planning 6 weeks of IV antibiotic therapy determined by operative culture results - follow up on operative cultures - continue Unasyn via piccline for 6 weeks - follow up with infectious disease in 4 weeks - Aim to improve diabetic control with a goal of keeping blood sugars under 180 mg/dL to enhance wound healing; will coordinate with endocrinology for management. - Follow up on blood cultures and deep wound cultures to tailor antibiotic therapy appropriately. - Agree with Podiatry evaluation for any additional debridement as necessary. - Recommend close outpatient follow-up with primary care physician to manage diabetes and prevent future complications. Plan discussed with: Patient Dietary Evaluation Review Comments: 1) Advance pt diet when medically feasible to a CCHO 60g diet 2) Continue current plan of care Expected Outcomes/Goals: F/U in 3-5 days BLANCA SCHWARTZ MD Sep 23, 2024 13:20
[2024-09-23 17:00] VITALS: BP 128/61; PULSE 60; RESP 18; TEMP 97.5; O2SAT 97
[2024-09-23 21:00] VITALS: BP 104/62; PULSE 60; RESP 19; TEMP 97.5; O2SAT 98
[2024-09-24 05:00] VITALS: BP 113/65; PULSE 60; RESP 17; TEMP 98.2; O2SAT 97
[2024-09-24 08:00] VITALS: PULSE 56; RESP 17; O2SAT 98
[2024-09-24 09:00] VITALS: BP 118/63; PULSE 56; RESP 17; TEMP 97.9; O2SAT 98
--- NOTE | 2024-09-24 11:35 | DVHPN2 ---
Subjective Denies any new symptoms. Reviewed: Care Plan, H&P, Labs, Medications Changes from previous H/P or p: No Changes General: Per HPI Eyes: No Pain, No Vision change, No Conjunctivae inflammation, No Eyelid inflammation, No Other, No Redness ENT: No Ear pain, No Ear discharge, No Nose pain, No Nose discharge, No Nose congestion, No Mouth pain, No Mouth swelling, No Throat pain, No Throat swelling, No Other Cardiovascular: No Chest Pain, No Palpitations, No Orthopnea, No Paroxysmal Noc. Dyspnea, No Edema, No Lt Headedness, No Other Respiratory: No Cough, No Dry, No Shortness of breath, No SOB with excertion, No Wheezing, No Hemoptysis, No Pleuritic Pain, No Sputum, No Other Gastrointestinal: No Nausea, No Vomiting, No Abdominal Pain, No Diarrhea, No Constipation, No Melena, No Hematochezia, No Other Genitourinary: No Dysuria, No Frequency, No Incontinence, No Hematuria, No Retention, No Other Musculoskeletal: No other, No neck pain, No shoulder pain, No arm pain, No back pain, No hand pain, No leg pain; foot pain Skin: No Rash, No Lesions, No Jaundice, No Bruising; Other (erythema) Objective Vitals Vital Signs Date Time Temp Pulse Resp B/P (MAP) Pulse Ox O2 Delivery O2 Flow Rate FiO2 09/24/24 09:00 97.9 56 17 118/63 (81) 98 97.9 09/23/24 20:00 Room Air* 0 21 Intake/Output Intake and Output 09/24/24 07:00 Intake Total 2260 ml Output Total 400 ml Balance 1860 ml Intake Oral 1860 ml IV Total 400 ml Output Urine Total 400 ml # Voids 2 # Bowel Movements 2 General Appearance: Alert, Oriented X3, Cooperative, No acute distress HEENT: Atraumatic, PERRLA Lungs: Clear to auscultation, Normal air movement Cardiovascular: Normal S1, Normal S2 Abdomen: Normal bowel sounds, Soft, No tenderness, No hepatospenomegaly Musculoskeletal: Normal sensory function, Normal motor function Extremities: Other (rt le dressing in place) Neuro: Normal gait, Normal speech Psych/Mental Status: Mental status NL, Mood NL Medications Current Medications Medications Dose Ordered Sig/Ruby Route Start Time Stop Time Status Last Admin Dose Admin Vancomycin HCl 0 ml @ 0 mls/hr UD IV 09/08/24 09:00 Cancel Docusate Sodium 100 mg BIDPRN PRN PO 09/08/24 13:00 Acetaminophen 650 mg Q6HP PRN PO 09/08/24 13:00 Diagnostic Test (Pha) 1 strip ACHS 09/08/24 17:00 09/24/24 11:29 1 STRIP Insulin Human Regular HS SC 09/08/24 22:00 09/23/24 21:49 4 UNITS Insulin Human Regular AC SC 09/08/24 17:00 09/24/24 11:30 6 UNITS Dextrose 50 ml UD PRN IV 09/08/24 13:00 Insulin Glargine 18 units HS SC 09/13/24 22:00 09/23/24 21:49 18 UNITS Sodium Chloride 10 ml QSHIFT@10,22 IV 09/13/24 22:00 09/24/24 09:08 10 ML Ampicillin Sodium/ Sulbactam Sodium 3 gm/Sodium Chloride 100 ml @ 100 mls/hr Q6H IV 09/14/24 22:15 09/24/24 09:07 100 MLS/HR Laboratory Results Laboratory Tests 09/15/24 05:44 09/23/24 11:00 Urinalysis Test 09/08/24 09:21 Urine Color Light-yellow (Yellow) Urine Clarity Clear (Clear) Urine pH 6.5 (5.0-9.0) Urine Specific [place] 1.050 (1.001-1.035) Urine Protein Negative (Negative) Urine Ketones Trace (Negative) Urine Blood Negative /uL (Negative) Urine Nitrite Negative (Negative) Urine Bilirubin Negative (Negative) Urine Urobilinogen Normal mg/dL (Negative) Urine Leukocyte Esterase Negative /uL (Negative) Urine RBC 1 /hpf (0 - 3) Urine WBC <1 /hpf (0 - 3) Urine Squamous Epithelial Cells Few /hpf (<5) Urine Bacteria None seen /hpf (None Seen) Urine Mucus Few (None Seen) Urine Glucose 4+ mg/dL (Normal) H Microbiology Microbiology Date/Time Source Procedure Growth Status 09/10/24 16:11 Foot Right Gram Stain - Final Complete 09/10/24 16:11 Foot Right Anaerobic Culture - Final Complete 09/10/24 16:11 Aerobic Culture - Final Klebsiella oxytoca Staphylococcus aureus Complete 12/16/24 09:14 Blood Blood Culture - Final NO GROWTH AFTER 5 DAYS OF INCUBATION. Complete Labs and/or images reviewed: Labs reviewed by me, Image(s) reviewed by me Assessment/Plan Assessment/Plan Impression: -right foot osteomyelitis -diabetes mellitus, uncontrolled with hemoglobin A1c 11.8 -rule out peripheral arterial disease -peripheral neuropathy Plan: -events: Patient pending reassessment of diabetic foot wound. According to social service notes, there was also an issue with receiving nurse at discharge for IV antibiotics. Discharge once DC planning has been established -podiatry consultation -regular insulin sliding scale , add Lantus 15 units q.h.s. -wound and blood culture : Pending -wound care per podiatry/wound care nurse -continue Unasyn Discharged home once patient IV antibiotics have been established. Total time spent with patient discussing and formulating plan of care: 35 minutes. This medical document was created using an electronic medical record system with [employer] dictation system. Although this document has been carefully reviewed, there may still be some phonetic and typographical errors. These areas are purely typographical due to imperfections of the software programs, and do not reflect any compromise in the patient's medical care. Plan discussed with: Patient, Spouse Date of Service: Sep 24, 2024 Billing Provider: MONSE SHELTON NP Common Visit Codes: [id number] INP/OBS CARE(HIGH) MONSE SHELTON NP Sep 24, 2024 11:35
[2024-09-24 13:00] VITALS: BP 111/64; PULSE 64; RESP 17; TEMP 98.2; O2SAT 98
[2024-09-24 17:08] VITALS: BP 120/59; PULSE 69; RESP 16; TEMP 98.2; O2SAT 96
--- NOTE | 2024-09-24 22:46 | DVHPN2 ---
Consult Progress Note Date Seen: Sep 24, 2024 Subjective Patient reports: Other (doing well , awaiting his antibiotics to be ready at patients home and graph site appearws clean ) Objective vital signs Vital Sign Date Time Temp Pulse Resp B/P (MAP) Pulse Ox O2 Delivery O2 Flow Rate FiO2 09/24/24 20:00 Room Air* 0 21 09/24/24 17:08 98.2 69 16 120/59 (79) 96 98.2 Total Intake and Output 09/23/24 09/23/24 09/24/24 15:00 23:00 07:00 Intake Total 700 ml 1160 ml 400 ml Output Total 400 ml Balance 700 ml 760 ml 400 ml medications Current Medications Medications Dose Ordered Sig/Ruby Route Start Time Stop Time Status Last Admin Dose Admin Vancomycin HCl 0 ml @ 0 mls/hr UD IV 09/08/24 09:00 Cancel Docusate Sodium 100 mg BIDPRN PRN PO 09/08/24 13:00 Acetaminophen 650 mg Q6HP PRN PO 09/08/24 13:00 Diagnostic Test (Pha) 1 strip ACHS 09/08/24 17:00 09/24/24 21:32 1 STRIP Insulin Human Regular HS SC 09/08/24 22:00 09/24/24 21:38 4 UNITS Insulin Human Regular AC SC 09/08/24 17:00 09/24/24 17:53 3 UNITS Dextrose 50 ml UD PRN IV 09/08/24 13:00 Insulin Glargine 18 units HS SC 09/13/24 22:00 09/24/24 21:39 18 UNITS Sodium Chloride 10 ml QSHIFT@10,22 IV 09/13/24 22:00 09/24/24 21:43 10 ML Ampicillin Sodium/ Sulbactam Sodium 3 gm/Sodium Chloride 100 ml @ 100 mls/hr Q6H IV 09/14/24 22:15 09/24/24 21:39 100 MLS/HR PHYSICAL EXAM: - GENERAL: Alert and oriented x 3. No acute distress. Well-nourished. - EYES: EOMI. Anicteric. - HENT: Moist mucous membranes. No scleral icterus. No cervical lymphadenopathy. - LUNGS: Clear to auscultation bilaterally. No accessory muscle use. - CARDIOVASCULAR: Regular rate and rhythm. No murmur. No JVD. - ABDOMEN: Soft, non-tender and non-distended. No palpable masses. - EXTREMITIES: No edema. Non-tender.?SKIN: No rashes or lesions. Warm. - NEUROLOGIC: No focal neurological deficits. CN II-XII grossly intact, but not individually tested - PSYCHIATRIC: Cooperative. Appropriate mood and affect. laboratory and microbiology Laboratory Tests 09/23/24 11:00 09/15/24 05:44 Test 09/23/24 11:00 Range/Units Serum Glucose 175 H 74-106 mg/dL Problem List/Assessment/Plan Problems(with codes): (1) Sepsis (2) Peripheral arterial disease (3) Acute respiratory distress (4) Pneumonia due to Coronavirus disease 2019 (5) Gas gangrene (6) Osteomyelitis (7) Diabetes type 2 Problem List/Assessment/Plan ID Problem List: - Diabetic foot ulcer - Osteomyelitis - Gas gangrene - Poorly controlled diabetes mellitus type 2 - Gas-forming bacterial infection Assessment This is a 69 y.o. male with a past medical history of diabetes mellitus type 2 managed with metformin, who presents with a right foot diabetic ulcer exhibiting signs of infection. The patient reports that the ulcer had been closed for a while but reopened two weeks ago on the plantar side of his heel with drainage and pus. He denies fevers, chills, diarrhea, or rash. Vital signs are stable with a temperature of 97.4F, pulse of 94 bpm, respiratory rate of 16 breaths per minute, blood pressure of 109/68 mmHg, and SpO2 of 97% on room air. Physical exam reveals the right foot is entirely erythematous with drainage on the right heel. Laboratory studies show leukocytosis with WBC 17.3, elevated CRP at 14.45, lactic acid 1.8, creatinine 1.1. Hemoglobin is 14.1, and platelets are 401. HbA1c is elevated at 11.8%, indicating poorly controlled diabetes. CT of the right lower extremity shows findings suspicious for osteomyelitis of the great toe proximal and distal phalanges, and extensive subcutaneous edema on the plantar forefoot about the first and second toes consistent with gas-forming bacterial infection plus gas gangrene. Superficial wound cultures are growing gram-negative rods, gram-positive rods, and viridans group B streptococci. Dr. Mensah performed a right foot debridement for gas gangrene with incision and drainage of an abscess at the level of the bone. Deep cultures were obtained during the procedure. 09/12: white count is down to 12.2 . His superficial wound cultures is growing klebsiella oxytosa that is chinchilla sensitive and during surgery today patient underwent debridement again to the bone and wound was kept open 09/13: whitecount is 12.1 09/14: Whitecount is 10.7 . Cultures are growing MSSA Klebsiella 09/15: spClose the wound with dermal graft application on 09/20: awaiting insurance to approve antibiotics Plan: -Check CBC tomorrow - recommend piccline placement for planning 6 weeks of IV antibiotic therapy determined by operative culture results - follow up on operative cultures - continue Unasyn via piccline for 6 weeks - follow up with infectious disease in 4 weeks - Aim to improve diabetic control with a goal of keeping blood sugars under 180 mg/dL to enhance wound healing; will coordinate with endocrinology for management. - Follow up on blood cultures and deep wound cultures to tailor antibiotic therapy appropriately. - Agree with Podiatry evaluation for any additional debridement as necessary. - Recommend close outpatient follow-up with primary care physician to manage diabetes and prevent future complications. Plan discussed with: Other Dietary Evaluation Review Comments: 1) Advance pt diet when medically feasible [facility] 2) Continue current plan of care Expected Outcomes/Goals: F/U in 3-5 days BLANCA SCHWARTZ MD Sep 24, 2024 22:46
[2024-09-25] VITALS (7 sets, daily range): BP systolic 107–155; BP diastolic 56–69; PULSE 52–59; RESP 16–19; TEMP 97.8–98.1; O2SAT 92–96
[2024-09-25 07:17] LABS: Basophils # (auto) 0.1 10 ^3/uL (0-0.2); Basophils % (auto) 1.1 % (0.0-2.0); Eosinophils # (auto) 0.4 10 ^3/uL (0-0.8); Eosinophils % (auto) 5.5 % (0.0-7.0); Hemoglobin 13.4 g/dL (13.5-17.5); Lymphocytes # (auto) 2.5 10 ^3/uL (0.4-5.4); Lymphocytes % (auto) 31.6 % (10.0-50.0); Mean Corpuscular Hemoglobin 29.8 pg (28.0-32.0); Mean Corpuscular Hgb Conc. 33.4 g/dL (32.0-36.0); Mean Corpuscular Volume 89.3 fL (80.0-100.0); Monocytes # (auto) 0.6 10 ^3/uL (0-1.3); Monocytes % (auto) 8.1 % (0.0-12.0); Neutrophils # (auto) 4.2 10 ^3/uL (1.6-8.6); Neutrophils % (auto) 53.7 % (37.0-80.0); Nucleated Red Blood Cells % 0.1 %; Platelet Count (auto) 231 10^3/uL (140-450); Red Blood Cells 4.48 10^6/uL (4.5-5.90); Red Cell Distribution Width 14.3 % (11.8-14.3); White Blood Cell 7.8 10^3/uL (4.4-10.8)
--- NOTE | 2024-09-25 14:13 | DVHPN2 ---
Subjective Denies any new symptoms. Reviewed: Care Plan, H&P, Labs, Medications Changes from previous H/P or p: No Changes General: Per HPI Eyes: No Pain, No Vision change, No Conjunctivae inflammation, No Eyelid inflammation, No Other, No Redness ENT: No Ear pain, No Ear discharge, No Nose pain, No Nose discharge, No Nose congestion, No Mouth pain, No Mouth swelling, No Throat pain, No Throat swelling, No Other Cardiovascular: No Chest Pain, No Palpitations, No Orthopnea, No Paroxysmal Noc. Dyspnea, No Edema, No Lt Headedness, No Other Respiratory: No Cough, No Dry, No Shortness of breath, No SOB with excertion, No Wheezing, No Hemoptysis, No Pleuritic Pain, No Sputum, No Other Gastrointestinal: No Nausea, No Vomiting, No Abdominal Pain, No Diarrhea, No Constipation, No Melena, No Hematochezia, No Other Genitourinary: No Dysuria, No Frequency, No Incontinence, No Hematuria, No Retention, No Other Musculoskeletal: No other, No neck pain, No shoulder pain, No arm pain, No back pain, No hand pain, No leg pain; foot pain Skin: No Rash, No Lesions, No Jaundice, No Bruising; Other (erythema) Objective Vitals Vital Signs Date Time Temp Pulse Resp B/P (MAP) Pulse Ox O2 Delivery O2 Flow Rate FiO2 09/25/24 11:54 97.8 52 19 155/62 (93) 96 97.8 09/24/24 20:00 Room Air* 0 21 Intake/Output Intake and Output 09/25/24 07:00 Intake Total 2000 ml Output Total 750 ml Balance 1250 ml Intake Oral 1600 ml IV Total 400 ml Output Urine Total 750 ml # Voids 4 # Bowel Movements 1 General Appearance: Alert, Oriented X3, Cooperative, No acute distress HEENT: Atraumatic, PERRLA Lungs: Clear to auscultation, Normal air movement Cardiovascular: Normal S1, Normal S2 Abdomen: Normal bowel sounds, Soft, No tenderness, No hepatospenomegaly Musculoskeletal: Normal sensory function, Normal motor function Extremities: Other (rt le dressing in place) Neuro: Normal gait, Normal speech Psych/Mental Status: Mental status NL, Mood NL Medications Current Medications Medications Dose Ordered Sig/Ruby Route Start Time Stop Time Status Last Admin Dose Admin Vancomycin HCl 0 ml @ 0 mls/hr UD IV 12/16/24 09:00 Cancel Docusate Sodium 100 mg BIDPRN PRN PO 09/08/24 13:00 Acetaminophen 650 mg Q6HP PRN PO 09/08/24 13:00 Diagnostic Test (Pha) 1 strip ACHS 09/08/24 17:00 09/25/24 12:07 1 STRIP Insulin Human Regular HS SC 09/08/24 22:00 09/24/24 21:38 4 UNITS Insulin Human Regular AC SC 09/08/24 17:00 09/25/24 12:07 3 UNITS Dextrose 50 ml UD PRN IV 09/08/24 13:00 Insulin Glargine 18 units HS SC 09/13/24 22:00 09/24/24 21:39 18 UNITS Sodium Chloride 10 ml QSHIFT@10,22 IV 09/13/24 22:00 09/25/24 10:00 10 ML Ampicillin Sodium/ Sulbactam Sodium 3 gm/Sodium Chloride 100 ml @ 100 mls/hr Q6H IV 09/14/24 22:15 09/25/24 09:47 100 MLS/HR Laboratory Results Laboratory Tests 09/23/24 11:00 09/25/24 05:59 Urinalysis Test 09/08/24 09:21 Urine Color Light-yellow (Yellow) Urine Clarity Clear (Clear) Urine pH 6.5 (5.0-9.0) Urine Specific [place] 1.050 (1.001-1.035) Urine Protein Negative (Negative) Urine Ketones Trace (Negative) Urine Blood Negative /uL (Negative) Urine Nitrite Negative (Negative) Urine Bilirubin Negative (Negative) Urine Urobilinogen Normal mg/dL (Negative) Urine Leukocyte Esterase Negative /uL (Negative) Urine RBC 1 /hpf (0 - 3) Urine WBC <1 /hpf (0 - 3) Urine Squamous Epithelial Cells Few /hpf (<5) Urine Bacteria None seen /hpf (None Seen) Urine Mucus Few (None Seen) Urine Glucose 4+ mg/dL (Normal) H Microbiology Microbiology Date/Time Source Procedure Growth Status 09/10/24 16:11 Foot Right Gram Stain - Final Complete 09/10/24 16:11 Foot Right Anaerobic Culture - Final Complete 09/10/24 16:11 Aerobic Culture - Final Klebsiella oxytoca Staphylococcus aureus Complete 09/08/24 09:14 Blood Blood Culture - Final NO GROWTH AFTER 5 DAYS OF INCUBATION. Complete Labs and/or images reviewed: Labs reviewed by me, Image(s) reviewed by me Assessment/Plan Assessment/Plan Impression: -right foot osteomyelitis -diabetes mellitus, uncontrolled with hemoglobin A1c 11.8 -rule out peripheral arterial disease -peripheral neuropathy Plan: -events: Right foot wound assessed with Podiatry. Orders received for dressing and wound care. Patient to be discharged today once all home health services and IV antibiotics has been established. -podiatry consultation -regular insulin sliding scale , add Lantus 15 units q.h.s. -wound and blood culture : Pending -wound care per podiatry/wound care nurse -continue Unasyn Discharged home once patient IV antibiotics have been established. Total time spent with patient discussing and formulating plan of care: 35 minutes. This medical document was created using an electronic medical record system with [employer] dictation system. Although this document has been carefully reviewed, there may still be some phonetic and typographical errors. These areas are purely typographical due to imperfections of the software programs, and do not reflect any compromise in the patient's medical care. Plan discussed with: Patient, Other (RN) My Orders Orders - MONSE SHELTON NP Procedure Category Date Status Time * Surveyor'S Assistant CONS 09/25/24 Verified Consult Date of Service: Sep 25, 2024 Billing Provider: MONSE SHELTON NP Common Visit Codes: [id number] INP/OBS CARE(HIGH) MONSE SHELTON NP Sep 25, 2024 14:13
--- NOTE | 2024-09-25 22:42 | DVHPN2 ---
Consult Progress Note Date Seen: Sep 25, 2024 Subjective Patient reports: Other (waiting for antibiotics at home to be ready , his graph on leg looks clean ) Objective vital signs Vital Sign Date Time Temp Pulse Resp B/P (MAP) Pulse Ox O2 Delivery O2 Flow Rate FiO2 09/25/24 21:00 98.0 59 18 113/69 (84) 92 98.0 09/25/24 08:00 Room Air* 0 21 Total Intake and Output 09/24/24 09/24/24 09/25/24 15:00 23:00 07:00 Intake Total 100 ml 1100 ml 900 ml Output Total 750 ml Balance 100 ml 1100 ml 150 ml medications Current Medications Medications Dose Ordered Sig/Ruby Route Start Time Stop Time Status Last Admin Dose Admin Vancomycin HCl 0 ml @ 0 mls/hr UD IV 09/08/24 09:00 Cancel Docusate Sodium 100 mg BIDPRN PRN PO 09/08/24 13:00 Acetaminophen 650 mg Q6HP PRN PO 09/08/24 13:00 Diagnostic Test (Pha) 1 strip ACHS 09/08/24 17:00 09/25/24 21:30 1 STRIP Insulin Human Regular HS SC 09/08/24 22:00 09/25/24 21:26 4 UNITS Insulin Human Regular AC SC 09/08/24 17:00 09/25/24 18:08 3 UNITS Dextrose 50 ml UD PRN IV 09/08/24 13:00 Insulin Glargine 18 units HS SC 09/13/24 22:00 09/25/24 21:25 18 UNITS Sodium Chloride 10 ml QSHIFT@10,22 IV 09/13/24 22:00 09/25/24 21:23 10 ML Ampicillin Sodium/ Sulbactam Sodium 3 gm/Sodium Chloride 100 ml @ 100 mls/hr Q6H IV 09/14/24 22:15 09/25/24 21:23 100 MLS/HR PHYSICAL EXAM: - GENERAL: Alert and oriented x 3. No acute distress. Well-nourished. - EYES: EOMI. Anicteric. - HENT: Moist mucous membranes. No scleral icterus. No cervical lymphadenopathy. - LUNGS: Clear to auscultation bilaterally. No accessory muscle use. - CARDIOVASCULAR: Regular rate and rhythm. No murmur. No JVD. - ABDOMEN: Soft, non-tender and non-distended. No palpable masses. - EXTREMITIES: No edema. Non-tender.?SKIN: No rashes or lesions. Warm. - NEUROLOGIC: No focal neurological deficits. CN II-XII grossly intact, but not individually tested - PSYCHIATRIC: Cooperative. Appropriate mood and affect. laboratory and microbiology Laboratory Tests 09/25/24 05:59 09/23/24 11:00 Test 09/23/24 11:00 Range/Units Serum Glucose 175 H 74-106 mg/dL Problem List/Assessment/Plan Problems(with codes): (1) Diabetes type 2 (2) Osteomyelitis (3) Gas gangrene (4) Pneumonia due to Coronavirus disease 2019 (5) Acute respiratory distress (6) Peripheral arterial disease (7) Sepsis Problem List/Assessment/Plan ID Problem List: - Diabetic foot ulcer - Osteomyelitis - Gas gangrene - Poorly controlled diabetes mellitus type 2 - Gas-forming bacterial infection Assessment This is a 69 y.o. male with a past medical history of diabetes mellitus type 2 managed with metformin, who presents with a right foot diabetic ulcer exhibiting signs of infection. The patient reports that the ulcer had been closed for a while but reopened two weeks ago on the plantar side of his heel with drainage and pus. He denies fevers, chills, diarrhea, or rash. Vital signs are stable with a temperature of 97.4F, pulse of 94 bpm, respiratory rate of 16 breaths per minute, blood pressure of 109/68 mmHg, and SpO2 of 97% on room air. Physical exam reveals the right foot is entirely erythematous with drainage on the right heel. Laboratory studies show leukocytosis with WBC 17.3, elevated CRP at 14.45, lactic acid 1.8, creatinine 1.1. Hemoglobin is 14.1, and platelets are 401. HbA1c is elevated at 11.8%, indicating poorly controlled diabetes. CT of the right lower extremity shows findings suspicious for osteomyelitis of the great toe proximal and distal phalanges, and extensive subcutaneous edema on the plantar forefoot about the first and second toes consistent with gas-forming bacterial infection plus gas gangrene. Superficial wound cultures are growing gram-negative rods, gram-positive rods, and viridans group B streptococci. Dr. Mensah performed a right foot debridement for gas gangrene with incision and drainage of an abscess at the level of the bone. Deep cultures were obtained during the procedure. 09/12: white count is down to 12.2 . His superficial wound cultures is growing klebsiella oxytosa that is chinchilla sensitive and during surgery today patient underwent debridement again to the bone and wound was kept open 09/13: whitecount is 12.1 09/14: Whitecount is 10.7 . Cultures are growing MSSA Klebsiella 09/15: spClose the wound with dermal graft application on 09/20: awaiting insurance to approve antibiotics 09/25: whitecount is 7.8 Plan: - recommend piccline placement for planning 6 weeks of IV antibiotic therapy determined by operative culture results - follow up on operative cultures - continue Unasyn via piccline for 6 weeks - follow up with infectious disease in 4 weeks - Aim to improve diabetic control with a goal of keeping blood sugars under 180 mg/dL to enhance wound healing; will coordinate with endocrinology for management. - Follow up on blood cultures and deep wound cultures to tailor antibiotic therapy appropriately. - Agree with Podiatry evaluation for any additional debridement as necessary. - Recommend close outpatient follow-up with primary care physician to manage diabetes and prevent future complications. Plan discussed with: Other Dietary Evaluation Review Comments: 1) Advance pt diet when medically feasible to a [facility] diet 2) Continue current plan of care Expected Outcomes/Goals: F/U in 3-5 days BLANCA SCHWARTZ MD Sep 25, 2024 22:42
[2024-09-26 01:00] VITALS: BP 109/65; PULSE 60; RESP 18; TEMP 97.9; O2SAT 90
[2024-09-26 05:00] VITALS: BP 111/62; PULSE 71; RESP 20; TEMP 97.9; O2SAT 92
[2024-09-26 08:54] VITALS: BP 150/58; PULSE 60; RESP 18; TEMP 97.7; O2SAT 98
--- NOTE | 2024-09-26 09:43 | DVHPN2 ---
Subjective Denies any new symptoms. Reviewed: Care Plan, H&P, Labs, Medications Changes from previous H/P or p: No Changes General: Per HPI Eyes: No Pain, No Vision change, No Conjunctivae inflammation, No Eyelid inflammation, No Other, No Redness ENT: No Ear pain, No Ear discharge, No Nose pain, No Nose discharge, No Nose congestion, No Mouth pain, No Mouth swelling, No Throat pain, No Throat swelling, No Other Cardiovascular: No Chest Pain, No Palpitations, No Orthopnea, No Paroxysmal Noc. Dyspnea, No Edema, No Lt Headedness, No Other Respiratory: No Cough, No Dry, No Shortness of breath, No SOB with excertion, No Wheezing, No Hemoptysis, No Pleuritic Pain, No Sputum, No Other Gastrointestinal: No Nausea, No Vomiting, No Abdominal Pain, No Diarrhea, No Constipation, No Melena, No Hematochezia, No Other Genitourinary: No Dysuria, No Frequency, No Incontinence, No Hematuria, No Retention, No Other Musculoskeletal: No other, No neck pain, No shoulder pain, No arm pain, No back pain, No hand pain, No leg pain; foot pain Skin: No Rash, No Lesions, No Jaundice, No Bruising; Other (erythema) Objective Vitals Vital Signs Date Time Temp Pulse Resp B/P (MAP) Pulse Ox O2 Delivery O2 Flow Rate FiO2 09/26/24 08:54 97.7 60 18 150/58 (88) 98 97.7 09/25/24 20:00 Room Air* 0 21 Intake/Output Intake and Output 09/26/24 07:00 Intake Total 1800 ml Output Total 1000 ml Balance 800 ml Intake Oral 1600 ml IV Total 200 ml Output Urine Total 1000 ml # Bowel Movements 1 General Appearance: Alert, Oriented X3, Cooperative, No acute distress HEENT: Atraumatic, PERRLA Lungs: Clear to auscultation, Normal air movement Cardiovascular: Normal S1, Normal S2 Abdomen: Normal bowel sounds, Soft, No tenderness, No hepatospenomegaly Musculoskeletal: Normal sensory function, Normal motor function Extremities: Other (rt le dressing in place) Neuro: Normal gait, Normal speech Psych/Mental Status: Mental status NL, Mood NL Medications Current Medications Medications Dose Ordered Sig/Ruby Route Start Time Stop Time Status Last Admin Dose Admin Vancomycin HCl 0 ml @ 0 mls/hr UD IV 09/08/24 09:00 Cancel Docusate Sodium 100 mg BIDPRN PRN PO 09/08/24 13:00 Acetaminophen 650 mg Q6HP PRN PO 09/08/24 13:00 Diagnostic Test (Pha) 1 strip ACHS 09/08/24 17:00 09/26/24 06:01 1 STRIP Insulin Human Regular HS SC 09/08/24 22:00 09/25/24 21:26 4 UNITS Insulin Human Regular AC SC 09/08/24 17:00 09/26/24 06:01 3 UNITS Dextrose 50 ml UD PRN IV 09/08/24 13:00 Insulin Glargine 18 units HS SC 09/13/24 22:00 09/25/24 21:25 18 UNITS Sodium Chloride 10 ml QSHIFT@ IV 09/13/24 22:00 09/25/24 21:23 10 ML Ampicillin Sodium/ Sulbactam Sodium 3 gm/Sodium Chloride 100 ml @ 100 mls/hr Q6H IV 09/26/24 10:00 UNV Laboratory Results Laboratory Tests 09/23/24 11:00 09/25/24 05:59 Urinalysis Test 09/08/24 09:21 Urine Color Light-yellow (Yellow) Urine Clarity Clear (Clear) Urine pH 6.5 (5.0-9.0) Urine Specific [place] 1.050 (1.001-1.035) Urine Protein Negative (Negative) Urine Ketones Trace (Negative) Urine Blood Negative /uL (Negative) Urine Nitrite Negative (Negative) Urine Bilirubin Negative (Negative) Urine Urobilinogen Normal mg/dL (Negative) Urine Leukocyte Esterase Negative /uL (Negative) Urine RBC 1 /hpf (0 - 3) Urine WBC <1 /hpf (0 - 3) Urine Squamous Epithelial Cells Few /hpf (<5) Urine Bacteria None seen /hpf (None Seen) Urine Mucus Few (None Seen) Urine Glucose 4+ mg/dL (Normal) H Microbiology Microbiology Date/Time Source Procedure Growth Status 09/10/24 16:11 Foot Right Gram Stain - Final Complete 09/10/24 16:11 Foot Right Anaerobic Culture - Final Complete 09/10/24 16:11 Aerobic Culture - Final Klebsiella oxytoca Staphylococcus aureus Complete 09/08/24 09:14 Blood Blood Culture - Final NO GROWTH AFTER 5 DAYS OF INCUBATION. Complete Labs and/or images reviewed: Labs reviewed by me, Image(s) reviewed by me Assessment/Plan Assessment/Plan Impression: -right foot osteomyelitis -diabetes mellitus, uncontrolled with hemoglobin A1c 11.8 -rule out peripheral arterial disease -peripheral neuropathy Plan: -events: Patient continues to have controlled blood sugars. Wound inspected with Podiatry yesterday. Social service consultation placed for wound care. Also awaiting for home IV antibiotics. -podiatry consultation -regular insulin sliding scale ,Lantus 15 units q.h.s. -wound and blood culture : Pending -wound care per podiatry/wound care nurse -continue Unasyn Discharged home once patient IV antibiotics have been established. Total time spent with patient discussing and formulating plan of care: 35 minutes. This medical document was created using an electronic medical record system with [employer] dictation system. Although this document has been carefully reviewed, there may still be some phonetic and typographical errors. These areas are purely typographical due to imperfections of the software programs, and do not reflect any compromise in the patient's medical care. Plan discussed with: Patient, Other (RN) My Orders Orders - MONSE SHELTON NP Procedure Category Date Status Time * Cargo Broker CONS 09/25/24 Transmitted Consult Discharge DISCHARGE 09/25/24 Transmitted 14:09 Incentive Spirometry ORDERS 09/26/24 Transmitted Q 1hr 08:27 Ampicillin & PHA 09/26/24 Logged Sulbactam Sodium 10:00 Date of Service: Sep 26, 2024 Billing Provider: MONSE SHELTON NP Common Visit Codes: [id number] INP/OBS CARE(HIGH) MONSE SHELTON NP Sep 26, 2024 09:43
[2024-09-26] MEDS: AMPICILLIN & SULBACTAM SODIUM 3 GM in SODIUM CHL 0.9% 100 ML IV SCH (10:14)
[2024-09-26 16:28] VITALS: BP 132/77; PULSE 76; RESP 19; TEMP 97.8; O2SAT 98
== END 2024-09-26 17:00 | disposition home or self-care (01) | DRG 853 ==
LOC: ER 08:26 → OVERFLOW 12:56 → CENTRAL 09-09 11:03
PROVIDERS: ADMIT Nurse Practitioner Acute Care; ATTEND Nurse Practitioner Acute Care
PROC: 0L9V0ZZ Drainage of Right Foot Tendon, Open Approach (ICD-10-PCS; principal; 2024-09-10 16:01)
PROC: 0L9V0ZZ Drainage of Right Foot Tendon, Open Approach (ICD-10-PCS; 2024-09-12)
PROC: 02HV33Z Insertion of Infusion Device into Superior Vena Cava, Percutaneous Approach (ICD-10-PCS; 2024-09-13)
PROC: B548ZZA Ultrasonography of Superior Vena Cava, Guidance (ICD-10-PCS; 2024-09-13)
PROC: 0HRMXK3 Replacement of Right Foot Skin with Nonautologous Tissue Substitute, Full Thickness, External Approach (ICD-10-PCS; 2024-09-15)
PROC: 0L9V0ZZ Drainage of Right Foot Tendon, Open Approach (ICD-10-PCS; 2024-09-15)
DX: A41.9 Sepsis, unspecified organism (principal); A48.0 Gas gangrene; E87.1 Hypo-osmolality and hyponatremia; E11.52 Type 2 diabetes mellitus with diabetic peripheral angiopathy with gangrene; L02.611 Cutaneous abscess of right foot; M86.8X7 Other osteomyelitis, ankle and foot; E11.65 Type 2 diabetes mellitus with hyperglycemia; E11.621 Type 2 diabetes mellitus with foot ulcer; E11.69 Type 2 diabetes mellitus with other specified complication; Z79.84 Long term (current) use of oral hypoglycemic drugs; Z83.3 Family history of diabetes mellitus; L97.519 Non-pressure chronic ulcer of other part of right foot with unspecified severity
CPT/HCPCS: 36415; 36569; 73701; 80048; 80053; 80061; 80202; 81001; 82565; 82962; 83036; 83605; 84484; 85025; 85610; 85652; 85730; 86141; 87040; 87070; 87075; 87077; 87186; 87205; 93926; 99291; C1762; G0378; J0131; J1100; J1815; J1885; J2250; J2405; J2543; J2704; J3490

== ENCOUNTER 2024-09-27 17:58 | Emergency (ER) | payer MEDICARE, OTHER ==
[~2024-09-27] VITALS: Ht 175.3 cm; Wt 75.0 kg
[~2024-09-27 17:58] MED LIST changes: +BLOO1KIT60 XX; +INSU1INJ19 SC; +LANC-268 XX
[2024-09-27] MEDS ORDERED: VANCOMYCIN PER PHARMACY 0 MG IV SCH (19:30)
[2024-09-27 20:00] VITALS: BP 108/63; PULSE 93; RESP 16; TEMP 98.2; O2SAT 97
[2024-09-27] MEDS: PIPERACILLIN-TAZOB 3.375GM 100 ML IV ONE (20:02)
[2024-09-27] MEDS: VANCOMYCIN 1GM/250ML KIT 250 ML IV ONE (20:55)
--- NOTE | 2024-09-27 22:03 | ED.PDOC ---
Musculoskeletal HPI Comments This patient is a pleasant 69-year-old male who arrives to the ED today for assistance with his IV antibiotic medication treatment. Patient was released from inpatient management to go home to receive IV antibiotics for a right leg wound. Patient states that home Health did not sharp today and advised him to come to the ED for administration of IV antibiotics. Patient arrives without knowledge of the antibiotics that he is supposed to be receiving. Patient denies any fever nausea or vomiting. Patient was mildly tachycardic at arrival. Chief Complaint: Lower Extremity Time Seen by MD: 18:22 Reviewed Notes: Nurses Notes Allergies: Coded Allergies: NO KNOWN ALLERGIES (Unverified , 10/09/20) Home Meds Active Scripts Blood Glucose Monitoring Suppl (D-Care Glucometer Kit/Glu W/Device) 1 Kit Kit, KIT XX BID, #1 Prov:MONSE SHELTON MARKETING COMMUNICATIONS MANAGER 09/16/24 Lancets (Accu-Chek Softclix Lancet) Lancets Mis, UNITS XX BID, #100 Prov:MONSE SHELTON NP 24 Insulin Glargine (Basaglar Kwikpen) 100 Unit/Ml Inj, 16 UNIT SC HS for 30 Days, #5 INJ Prov:MONSE SHELTON MARKETING COMMUNICATIONS MANAGER 09/15/24 Blood Glucose Monitoring Suppl (D-Care Glucometer Kit/Glu W/Device) 1 Kit Kit, KIT XX BID, #1 Prov:MONSE SHELTON NP 09/15/24 Lancets (Accu-Chek Softclix Lancet) Lancets Mis, UNIT XX BID, #100 Prov:MONSE SHELTON MARKETING COMMUNICATIONS MANAGER 09/15/24 Information Source: Patient Mode of Arrival: Ambulatory Location: Right Extremity Location: Leg Timing: Weeks Prehospital treatment: Treatment Severity: Moderate Able to Move Extremity: Yes Bear Weight: Fully Pain: Mild Hand Dominance: Right Mechanism: Spontaneous Circumstances: Spontaneous Symptoms: Swelling DVT Risk Factors: NONE Past Medical History PAST MEDICAL HISTORY: DM Past Medical History (Other): Recent leg wound that required outpatient IV antibiotics. Surgical History: Denies all surgeries Family History Family History: Unknown Social History Smoker: Non-Smoker Alcohol: Occasionally Drugs: Denies Drug Use Lives In: Home Constitutional: denies: chills, diaphoresis, fatigue, fever, malaise, sweats, weakness, others EENTM: denies: blurred vision, double vision, ear bleeding, ear discharge, ear drainage, ear pain, ear ringing, eye pain, eye redness, hearing loss, mouth pain, mouth swelling, nasal discharge, nose bleeding, nose congestion, nose pain, photophobia, tearing, throat pain, throat swelling, voice changes, others Respiratory: denies: cough, hemoptysis, orthopnea, SOB at rest, shortness of breath, SOB with excertion, stridor, wheezing, others Cardiovascular: denies: chest pain, dizzy spells, diaphoresis, Dyspnea on exertion, edema, irregular heart beat, left arm pain, lightheadedness, palpitations, PND, syncope, others Gastrointestinal: denies: abdomen distended, abdominal pain, blood streaked bowels, constipated, diarrhea, dysphagia, difficulty swallowing, hematemesis, melena, nausea, poor appetite, poor fluid intake, rectal bleeding, rectal pain, vomiting, others Genitourinary: denies: burning, dysuria, flank pain, frequency, hematuria, incontinence, penile discharge, penile sore, pain, testicle pain, testicle swelling, urgency, others Neurological: denies: dizziness, fainting, headache, left sided numbness, left sided weakness, numbness, paresthesia, pre-existing deficit, right sided numbness, right sided weakness, seizure, speech problems, tingling, tremors, weakness, others Musculoskeletal: denies: back pain, gout, joint pain, joint swelling, muscle pain, muscle stiffness, neck pain, others Integumetry: reports: wounds (Right leg wound); denies: bruises, change in color, change in hair/nails, dryness, laceration, lesions, lumps, rash, others Allergic/Immunocompromised: denies: Difficulty Healing, Frequent Infections, Hives, Itching, others Hematologic/Lymphatic: denies: anemia, blood clots, easy bleeding, easy bruisin g, swollen glands, others Endocrine: denies: excessive hunger, excessive sweating, excessive thirst, excessive urination, flushing, intolerance to cold, intolerance to heat, unexplained weight gain, unexplained weight loss, others Psychiatric: denies: anxiety, bipolar disorder, depression, hopeless, panic disorder, schizophrenia, sleepless, suicidal, others Physical Exam General Appearance: No Apparent Distress (Patient does not appear to be in distress at time of evaluation.), Normal HEENT: Normal ENT Inspection, Pharynx Normal, TMs Normal Neck: Full Range of Motion, Non-Tender, Normal, Normal Inspection Respiratory: Chest Non-Tender, Lungs Clear, No Accessory Muscle Use, No Respiratory Distress, Normal Breath Sounds Cardiovascular: No Edema, No JVD, No Murmur, No Gallop, Normal Peripheral Pulses, Regular Rate/Rhythm Breast Exam: Deferred Gastrointestinal: No Organomegaly, Non Tender, No Pulsatile Mass, Normal Bowel Sounds, Soft Genitalia: Deferred Pelvic: Deferred Rectal: Deferred Extremities: Other (Patient is a well bandage slower right leg wound. No lymphangitis appreciated. Distal neurovascularly intact.) Neurologic: Alert, buttonholer II-XII nml as Tested, No Motor Deficits, Normal Affect, Normal Mood, No Sensory Deficits Cerebellar Function: Normal Reflexes: Normal Skin: Dry, Normal Color, Warm Lymphatic: No Adenopathy Was a procedure done? Was a procedure done?: No Differential Diagnosis EXT Differential Diagnosis: Cellulitis X-Ray, Labs, Meds, VS Vital Signs Date Time Temp Pulse Resp B/P (MAP) Pulse Ox O2 Delivery O2 Flow Rate FiO2 09/27/24 20:00 93 16 97 Room Air* 0 21 09/27/24 20:00 98.2 93 18 108/63 (78) 97 98.2 09/27/24 18:46 98.0 104 16 101/68 (79) 96 Current Medications Medications (Trade) Dose Ordered Sig/Ruby Route Start Time Stop Time Status Last Admin Piperacillin Sod/ Tazobactam Sod 100 ml @ 100 mls/hr ONCE ONCE IV 09/27/24 19:30 09/27/24 20:29 DC 09/27/24 20:02 Vancomycin HCl 250 ml @ 250 mls/hr ONCE ONCE IV 09/27/24 19:45 09/27/24 20:44 DC 09/27/24 20:55 X-Ray, Labs, Meds, VS Comment Since we were unable to receive any information related to the patient's antibiotic regime. Patient was given Zosyn and vancomycin the IV. Patient has been advised to continue with his treatment per home health. Advised patient that if home health does not sharp tomorrow, he will need to return for another round of antibiotics. Time of 1ST Reevaluation: 22:01 Reevaluation 1ST: Improved Consultation: PCP Patient Education/Counseling: Diagnosis, Treatment Family Education/Counseling: Diagnosis, Treatment Departure 1 Departure Time of Disposition: 22:02 Impression: Primary Impression: Leg wound, right Additional Impression: Receiving intravenous antibiotic treatment as outpatient Disposition: 01 HOME / SELF CARE / HOMELESS Condition: Stable Additional Instructions: Advised continue with home health IV antibiotics scheduled. If home health does not arrived tomorrow, patient will need to return for another round of IV antibiotics. Advised patient that if he can ascertain the antibiotics that were scheduled, that would be helpful. Discharged With: Self Critical Care Note Critical Care Time?: No Stability Stability form required: No Heart Score Heart Score: Heart Score Response (Comments) Value History N/A 0 EKG N/A 0 Age N/A 0 Risk Factors N/A 0 Troponin N/A 0 Total 0 RADHA GERONIMO PAC Sep 27, 2024 22:03
== END 2024-09-27 22:16 | disposition home or self-care (01) ==
LOC: ER 17:58
DX: S81.801A Unspecified open wound, right lower leg, initial encounter (principal); E11.9 Type 2 diabetes mellitus without complications; Z79.899 Other long term (current) drug therapy; X58.XXXA Exposure to other specified factors, initial encounter; Y93.89 Activity, other specified; Y92.89 Other specified places as the place of occurrence of the external cause; Y99.8 Other external cause status
CPT/HCPCS: 96365; 96366; 96368; 99284; J2543; J3370; 96367